=== PATIENT | male | born 1970 | race Caucasian/White ===

== ENCOUNTER 2016-12-26 02:28 | Emergency (ER) | payer OTHER ==
[2016-12-26] MEDS ORDERED: NS 0.9% 1000 ML* 1,000 ML IV ONE (02:42)
[2016-12-26] MEDS ORDERED: Ondansetron INJ* 2 MG/ML VIAL IV ONE (02:42)
[2016-12-26] MEDS ORDERED: Ketorolac INJ* 30 MG/ML 1 ML VIAL IV ONE (02:42)
[2016-12-26 03:14] LABS: Hematocrit 50 % (42-52); Hemoglobin 16.4 g/dl (14.0-18.0); Mean Corpuscular HGB Conc 33 g/dl (31-36); Mean Corpuscular Hemoglobin 29 pg (27-31); Mean Corpuscular Volume 86 fL (80-94); Mean Platelet Volume 8 um3 (7.4-10.4); Red Blood Count 5.75 10^6/ul (4.0-5.4); Red Cell Distribution Width 14 % (10.5-15); White Blood Count 9.1 10^3/ul (3.5-10.8)
[2016-12-26 03:30] LABS: BUN/Creatinine Ratio 11.1 (8-20); EGFR African American 72.5 (>60); EGFR Non-African American 56.4 (>60); Globulin 2.3 g/dL (2-4); Total Bilirubin 0.3 mg/dL (0.2-1.0); Total Protein 6.3 g/dL (6.4-8.9)
[2016-12-26] MEDS ORDERED: oxyCODONE/Acetamin 5/325 MG* TAB PO ONE (04:17)
[2016-12-26 04:18] LABS: Urine Bacteria Absent (Absent); Urine Bilirubin Negative (Negative); Urine Glucose Negative (Negative); Urine Nitrite Negative (Negative); Urine Sperm Present (Absent)
--- NOTE | 2016-12-26 04:20 | ED ---
Neville Cartagena Adam, scribed for Antonio Reynolds MD on 12/26/16 at 0251 . Back Pain - HPI Summary HPI Summary: Pt is a 46 year old male presenting with left flank pain. The pain set on 1 hour ago and it radiates to the pt's left testicle. The pt has had kidney stones 1x (less than 1 year ago) with pain on the same side and he believes that this is kidney stones again. He also c/o nausea associated with the pain. He took Advil to alleviate the pain. PMHx includes DM and gastric bypass. Pt is a smoker. - History of Current Complaint Chief Complaint: EDFlankPain Stated Complaint: FLANK PAIN Time Seen by Provider: 12/26/16 02:40 Hx Obtained From: Patient Onset/Duration: Sudden Onset, Lasting Hours, Still Present Onset/Duration: Atraumatic Timing: Constant Back Pain Location: Is Discrete @ - Left flank, Radiates To - Left testicle Severity Initially: Moderate Severity Currently: Moderate Pain Intensity: 7 Pain Scale Used: 0-10 Numeric Aggravating Symptom(s): Nothing Alleviating Symptom(s): OTC Meds - Advil Associated Signs And Symptoms: Positive: Other - Nausea Related History: Similar Episode Dx As - Previous episode of kidney stones - Allergies/Home Medications Allergies/Adverse Reactions: Allergies Allergy/AdvReac Type Severity Reaction Status Date / Time Aspirin AdvReac See Comment Verified 03/10/16 09:32 PMH/Surg Hx/FS Hx/Imm Hx Endocrine/Hematology History: Reports: Hx Diabetes - Type 2 Denies: Hx Systemic Lupus Erythematosus, Hx Thyroid Disease Cardiovascular History: Denies: Hx Congestive Heart Failure, Hx Hypertension Respiratory History: Denies: Hx Asthma, Hx Chronic Obstructive Pulmonary Disease (COPD) GI History: Reports: Hx Gall Bladder Disease - stones, Other GI Disorders - GASTRIC BYPASS Denies: Hx Ulcer History: Denies: Hx Dialysis, Hx Renal Disease Musculoskeletal History: Denies: Hx Rheumatoid Arthritis, Hx Scoliosis Neurological History: Denies: Hx Headaches, Other Neuro Impairments/Disorders Psychiatric History: Reports: Hx of Violent Episodes Against Others - Cancer History Hx Chemotherapy: No - Surgical History Surgery Procedure, Year, and Place: GASTRIC BYPASS/APPY/UMBILICAL HERNIA X4/ TONSILS/NASAL SEPTUM, Uvula Infectious Disease History: No Infectious Disease History: Denies: Hx Clostridium Difficile, Hx Hepatitis, Hx Human Immunodeficiency Virus (HIV), Hx of Known/Suspected MRSA, Hx Shingles, Hx Tuberculosis, Hx Known/ Suspected VRE, Hx Known/Suspected VRSA, History Other Infectious Disease, Traveled Outside the [place] in Last 30 Days - Family History Known Family History: Positive: Other - Alcohol abuse (brother, paternal grandmother) - Social History Occupation: Disabled Lives: With Family - Mother Alcohol Use: None Hx Substance Use: No Substance Use Type: Reports: None Hx Tobacco Use: Yes Smoking Status (MU): Heavy Every Day Tobacco Smoker Type: Cigarettes Amount Used/How Often: 1 ppd Length of Time of Smoking/Using Tobacco: 35 Have You Smoked in the Last Year: Yes Review of Systems Positive: Nausea Positive: flank pain - Left Positive: Other - Left testicle pain All Other Systems Reviewed And Are Negative: Yes Physical Exam Triage Information Reviewed: Yes Vital Signs On Initial Exam: Initial Vitals Temp Pulse Resp BP Pulse Ox 98.7 F 101 16 187/120 98 12/26/16 02:29 12/26/16 02:29 12/26/16 02:29 12/26/16 02:29 12/26/16 02:29 Vital Signs Reviewed: Yes Appearance: Positive: Well-Appearing, Pain Distress - moderate discomfort Skin: Positive: Warm Eyes: Positive: MARYBEL ENT: Positive: Hearing grossly normal Neck: Positive: Supple Respiratory/Lung Sounds: Positive: Breath Sounds Present Cardiovascular: Positive: RRR Abdomen Description: Positive: Nontender, No Organomegaly, Soft. Negative: CVA Tenderness (R), CVA Tenderness (L), Distended, Guarding Bowel Sounds: Positive: Present Musculoskeletal: Positive: Strength/ROM Intact Neurological: Positive: Alert, Oriented to Person Place, Time Psychiatric: Positive: Affect/Mood Appropriate Diagnostics - Vital Signs Vital Signs Temp Pulse Resp BP Pulse Ox 12/26/16 02:29 98.7 F 101 16 187/120 98 - Laboratory Lab Results: Lab Results 12/26/16 12/26/16 12/26/16 Range/Units 03:00 03:00 03:55 WBC 9.1 (3.5-10.8) 10^3/ul RBC 5.75 H (4.0-5.4) 10^6/ul Hgb 16.4 (14.0-18.0) g/dl Hct 50 (42-52) % MCV 86 (80-94) fL MCH 29 (27-31) pg MCHC 33 (31-36) g/dl RDW 14 (10.5-15) % Plt Count 258 (150-450) 10^3/ul MPV 8 (7.4-10.4) um3 Neut % (Auto) 55.0 (38-83) % Lymph % (Auto) 33.9 (25-47) % [place] % (Auto) 7.3 (1-9) % Eos % (Auto) 2.8 (0-6) % Baso % (Auto) 1.0 (0-2) % Absolute Neuts (auto) 5.0 (1.5-7.7) 10^3/ul Absolute Lymphs (auto) 3.1 (1.0-4.8) 10^3/ul Absolute Monos (auto) 0.7 (0-0.8) 10^3/ul Absolute Eos (auto) 0.3 (0-0.6) 10^3/ul Absolute Basos (auto) 0.1 (0-0.2) 10^3/ul Absolute Nucleated RBC 0.01 10^3/ul Nucleated RBC % 0.1 Sodium 138 (133-145) mmol/L Potassium 4.0 (3.5-5.0) mmol/L Chloride 107 (101-111) mmol/L Carbon Dioxide 24 (22-32) mmol/L Anion Gap 7 (2-11) mmol/L BUN 15 (6-24) mg/dL Creatinine 1.35 H (0.67-1.17) mg/dL Est GFR ( Amer) 72.5 (>60) Est GFR (Non-Af Amer) 56.4 (>60) BUN/Creatinine Ratio 11.1 (8-20) Glucose 161 H (70-100) mg/dL Calcium 9.0 (8.6-10.3) mg/dL Total Bilirubin 0.30 (0.2-1.0) mg/dL AST 15 (13-39) U/L ALT 21 (7-52) U/L Alkaline Phosphatase 86 (34-104) U/L Total Protein 6.3 L (6.4-8.9) g/dL Albumin 4.0 (3.2-5.2) g/dL Globulin 2.3 (2-4) g/dL Albumin/Globulin Ratio 1.7 (1-3) Urine Color Yellow Urine Appearance Cloudy Urine pH 5.0 (5-9) Ur Specific [place] 1.023 (1.010-1.030) Urine Protein 1+(30 mg/dl) H (Negative) Urine Ketones Negative (Negative) Urine Blood 3+ H (Negative) Urine Nitrate Negative (Negative) Urine Bilirubin Negative (Negative) Urine Urobilinogen Negative (Negative) Ur Leukocyte Esterase Negative (Negative) Urine WBC (Auto) Trace(0-5/hpf) (Absent) Urine RBC (Auto) 3+(>10/hpf) H (Absent) Ur Squamous Epith Cells Present H (Absent) Urine Bacteria Absent (Absent) Hyaline Casts Present H (Absent) Urine Sperm Present H (Absent) Urine Glucose Negative (Negative) Result Diagrams: 12/26/16 03:00 12/26/16 03:00 Lab Statement: Any lab studies that have been ordered have been reviewed, and results considered in the medical decision making process. - CT A/P CT Interpretation Completed By: Radiologist - IMPRESSION: OBSTRUCTING CALCULUS IN THE LEFT UVJ. Re-Evaluation - Re-Evaluation First Eval Change: Improved - results d/w pt. pt pain free Back Pain Course/Dx - Diagnoses Provider Diagnoses: Kidney stones Discharge - Discharge Plan Condition: Improved Disposition: HOME Patient Education Materials: Kidney Stones (ED) Referrals: Rigo Cardona MD [Medical Doctor] - Additional Instructions: Follow up with Dr. Cardona (Urology) this week. The documentation as recorded by the Neville werner Adam accurately reflects the service I personally performed and the decisions made by , Antonio Reynolds MD.
[2016-12-26 04:35] VITALS: BP 163/94
--- NOTE | 2016-12-26 08:19 | RAD ---
Indication: Left flank pain. CT of the abdomen and pelvis was performed without oral or IV contrast administration. Coronal and sagittal reconstructed images were obtained. Lung bases demonstrate no pleural fluid, nodules or masses. The heart is normal size without evidence of pericardial effusion. The liver is normal in size. It is diffusely decreased in density consistent with hepatic steatosis. The gallbladder demonstrates calcified gallstone. No pericholecystic fluid or wall thickening is noted. The spleen is normal size. No adrenal masses are noted. The right kidney is unremarkable. There is fullness of the left renal collecting system. There is a low density lesion left kidney likely representing a left renal cyst measuring up to 4.9 cm. Mild left hydroureter is noted. There is a 2 to 3 mm calculus at the left ureterovesicular junction consistent with calculi at the ureterovesicular junction. No retroperitoneal adenopathy is noted. No dilated loops of bowel are noted. CT of pelvis demonstrates no free fluid. The prostate is otherwise unremarkable. No hernias are noted. IMPRESSION: 2 TO 3 MM CALCULI AT THE LEFT URETEROVESICULAR JUNCTION. MILD LEFT HYDRONEPHROSIS IS NOTED. LEFT RENAL CYST IS NOTED. CHOLELITHIASIS. HEPATIC STEATOSIS. PATIENT IS STATUS POST ANTERIOR ABDOMINAL WALL HERNIA REPAIR.
== END 2016-12-26 04:34 | disposition home or self-care (01) ==
LOC: ED 02:28
DX: N20.0 Calculus of kidney (principal); R10.84 Generalized abdominal pain; R11.0 Nausea; F17.210 Nicotine dependence, cigarettes, uncomplicated; N50.812 Left testicular pain
CPT/HCPCS: 36415; 74176; 80053; 81003; 81015; 85025; 96374; 96375; 99282; J1885; J2405

== ENCOUNTER 2017-04-07 15:39 | Inpatient (IN) | payer OTHER ==
[2017-04-07 15:53] LABS: Hematocrit 50 % (42-52); Hemoglobin 16.2 g/dl (14.0-18.0); Mean Corpuscular HGB Conc 33 g/dl (31-36); Mean Corpuscular Hemoglobin 28 pg (27-31); Mean Corpuscular Volume 87 fL (80-94); Mean Platelet Volume 8 um3 (7.4-10.4); Red Blood Count 5.78 10^6/ul (4.0-5.4); Red Cell Distribution Width 14 % (10.5-15); White Blood Count 10.1 10^3/ul (3.5-10.8)
[2017-04-07 16:07] LABS: Albumin 4.1 g/dL (3.2-5.2); BUN/Creatinine Ratio 9.6 (8-20); Calcium 9.6 mg/dL (8.6-10.3); EGFR African American 110.2 (>60); EGFR Non-African American 85.7 (>60); Globulin 2.4 g/dL (2-4); HDL Cholesterol 32.8 mg/dL; Potassium 4.1 mmol/L (3.5-5.0); Total Bilirubin 0.4 mg/dL (0.2-1.0); Total Protein 6.5 g/dL (6.4-8.9)
[2017-04-07 16:08] LABS: Urine Bacteria Absent (Absent); Urine Bilirubin Negative (Negative); Urine Glucose Negative (Negative); Urine Nitrite Negative (Negative)
--- NOTE | 2017-04-07 16:09 | RAD ---
INDICATION: Slurred speech and left-sided weakness. COMPARISON: None. TECHNIQUE: Contiguous axial sections of the brain were obtained from the skull base to the vertex without contrast. FINDINGS: Evaluation is somewhat limited by motion artifact. The ventricles, cisterns and sulci are within normal limits. The colmenares-white matter differentiation is adequately maintained and there is no sulcal effacement. No significant focal abnormality or mass effect is present. There is no evidence for intracranial hemorrhage. No significant focal osseous abnormality is present. There is complete opacification of the visualized portion of the left maxillary sinus. There are mild mucosal thickening of the anterior ethmoid air cells. The remaining paranasal sinuses are aerated. The mastoid air cells are clear. IMPRESSION: Normal CT of the brain. Findings reported to Dr. Squires over the telephone at 1605 hours on April 07, 2017.
--- NOTE | 2017-04-07 16:18 | RAD ---
INDICATION: Right-sided weakness COMPARISON: Chest x-ray dated May 29, 2016 TECHNIQUE: Single AP portable view of the chest was obtained. FINDINGS: Image quality is compromised due to the relative inferiority of a portable chest x-ray. The heart and mediastinum exhibit normal size and contour. There is questionable patchy infiltrate overlying the right lung base. Otherwise the lungs are grossly clear. There is no evidence of a large pleural effusion. Visualized bones are normal for the patient's age. IMPRESSION: Questionable patchy infiltrate at the right lung base which may simply be the consequence of poor x-ray penetration of a portable chest x-ray and/or incompletely inspiratory effort prior to image acquisition.
[2017-04-07] MEDS ORDERED: Aspirin Low Dose CHEW TAB* 81 MG PO ONE (16:20)
[2017-04-07] MEDS ORDERED: NS 0.9% 1000 ML* 1,000 ML IV ONE (16:37)
[2017-04-07] MEDS ORDERED: Acetaminophen TAB* 325 MG PO PRN (16:37)
[2017-04-07] MEDS ORDERED: Dextrose 50% Syringe 50 ML* 25 GM/50 ML SYRINGE IV PUSH PRN (16:42)
[2017-04-07 16:55] LABS: C Reactive Protein 5.79 mg/L (< 5.00)
[2017-04-07] MEDS ORDERED: Levofloxacin 750 MG IVPREMIX(* 750 MG/150 ML BAG IVPB ONE (17:21)
--- NOTE | 2017-04-07 17:28 | ED ---
I, Oh,Kathya, scribed for Dillon Squires MD on 04/07/17 at 1548 . Neurological HPI - HPI Summary HPI Summary: This 46 y/o male presents to ED via ambulance for left sided weakness that is constant since 0800 am yesterday morning and slurred speech since 0800 AM this morning. Positive dizziness that is worse with ambulation. Pt states that he is unable to walk. Pt appears unkempt with dirt/soil noted on bilat feet. PMHx includes DM, gastric bypass, cocaine and EtOH dependence, and HLD. FHx is positive for EtOH abuse. - History of Current Complaint Stated Complaint: SLURRED SPEECH,LEFT SIDE WEAKNESS Hx Obtained From: Patient, EMS Onset/Duration: Sudden Onset Timing: Constant Character: Weak - left sided - Allergy/Home Medications Allergies/Adverse Reactions: Allergies Allergy/AdvReac Type Severity Reaction Status Date / Time Aspirin AdvReac See Comment Verified 04/07/17 16:53 PMH/Surg Hx/FS Hx/Imm Hx Endocrine/Hematology History: Reports: Hx Diabetes - Type 2 Denies: Hx Systemic Lupus Erythematosus, Hx Thyroid Disease Cardiovascular History: Denies: Hx Congestive Heart Failure, Hx Hypertension Respiratory History: Denies: Hx Asthma, Hx Chronic Obstructive Pulmonary Disease (COPD) GI History: Reports: Hx Gall Bladder Disease - stones, Other GI Disorders - GASTRIC BYPASS Denies: Hx Ulcer History: Denies: Hx Dialysis, Hx Renal Disease Musculoskeletal History: Denies: Hx Rheumatoid Arthritis, Hx Scoliosis Neurological History: Denies: Hx Headaches, Other Neuro Impairments/Disorders Psychiatric History: Reports: Hx of Violent Episodes Against Others - Cancer History Hx Chemotherapy: No - Surgical History Surgery Procedure, Year, and Place: GASTRIC BYPASS/APPY/UMBILICAL HERNIA X4/ TONSILS/NASAL SEPTUM, Uv[place] Infectious Disease History: Denies: Hx Clostridium Difficile, Hx Hepatitis, Hx Human Immunodeficiency Virus (HIV), Hx of Known/Suspected MRSA, Hx Shingles, Hx Tuberculosis, Hx Known/ Suspected VRE, Hx Known/Suspected VRSA, History Other Infectious Disease - Family History Known Family History: Positive: Other - Alcohol abuse (brother, paternal grandmother) - Social History Alcohol Use: None Hx Substance Use: Yes - Hx of cocaine dependence Substance Use Type: Reports: Cocaine Hx Tobacco Use: Yes Smoking Status (MU): Heavy Every Day Tobacco Smoker Type: Cigarettes Amount Used/How Often: 1 ppd Length of Time of Smoking/Using Tobacco: 35 Have You Smoked in the Last Year: Yes Review of Systems Negative: Fever Positive: Weakness - left sided weakness, Slurred Speech All Other Systems Reviewed And Are Negative: Yes Physical Exam - Summary Physical Exam Summary: VITAL SIGNS: Reviewed. GENERAL: Patient is an obese male who is lying comfortable in the stretcher. Patient is not in any acute respiratory distress. HEAD AND FACE: No signs of trauma. No ecchymosis, hematomas or skull depressions. No sinus tenderness. EYES: PERRLA, EOMI x 2, No injected conjunctiva, no nystagmus. No photophobia. EARS: Hearing grossly intact. Ear canals and tympanic membranes are within normal limits. MOUTH: Oropharynx within normal limits. NECK: Supple, trachea is midline, no adenopathy, no JVD, no carotid bruit, no c- spine tenderness, neck with full ROM. No meningeal signs, no Kernig's or brudzinskis signs. CHEST: Symmetric, no tenderness at palpation LUNGS: Clear to auscultation bilaterally. No wheezing or crackles. CVS: Regular rate and rhythm, S1 and S2 present, no murmurs or gallops appreciated. ABDOMEN: Soft, non-tender. No signs of distention. No rebound no guarding, and no masses palpated. Bowel sounds are normal. EXTREMITIES: FROM in all major joints, no edema, no cyanosis or clubbing. NEURO: Alert and oriented x 3. Positive left side weakness with facial droop. NIH score 8 SKIN: Dry and warm Triage Information Reviewed: Yes Vital Signs On Initial Exam: Initial Vitals Temp Pulse Resp BP Pulse Ox 97.3 F 83 18 181/107 98 04/07/17 15:40 04/07/17 15:40 04/07/17 15:40 04/07/17 15:40 04/07/17 15:40 Vital Signs Reviewed: Yes Diagnostics - Vital Signs Vital Signs Temp Pulse Resp BP Pulse Ox 04/07/17 16:00 98 04/07/17 15:42 97.3 F 81 20 181/107 98 04/07/17 15:40 97.3 F 83 18 181/107 98 - Laboratory Lab Results: Lab Results 06/18/17 06/18/17 06/18/17 Range/Units 15:45 15:45 15:45 WBC 10.1 (3.5-10.8) 10^3/ul RBC 5.78 H (4.0-5.4) 10^6/ul Hgb 16.2 (14.0-18.0) g/dl Hct 50 (42-52) % MCV 87 (80-94) fL MCH 28 (27-31) pg MCHC 33 (31-36) g/dl RDW 14 (10.5-15) % Plt Count 255 (150-450) 10^3/ul MPV 8 (7.4-10.4) um3 Neut % (Auto) 76.1 (38-83) % Lymph % (Auto) 11.9 L (25-47) % [place] % (Auto) 5.4 (1-9) % Eos % (Auto) 2.2 (0-6) % Baso % (Auto) 4.4 H (0-2) % Absolute Neuts (auto) 7.7 (1.5-7.7) 10^3/ul Absolute Lymphs (auto) 1.2 (1.0-4.8) 10^3/ul Absolute Monos (auto) 0.5 (0-0.8) 10^3/ul Absolute Eos (auto) 0.2 (0-0.6) 10^3/ul Absolute Basos (auto) 0.4 H (0-0.2) 10^3/ul Absolute Nucleated RBC 0 10^3/ul Nucleated RBC % 0 INR (Anticoag Therapy) 0.90 (0.89-1.11) APTT 30.6 (26.0-36.3) seconds Sodium 137 (133-145) mmol/L Potassium 4.1 (3.5-5.0) mmol/L Chloride 107 (101-111) mmol/L Carbon Dioxide 22 (22-32) mmol/L Anion Gap 8 (2-11) mmol/L BUN 9 (6-24) mg/dL Creatinine 0.94 (0.67-1.17) mg/dL Est GFR ( Amer) 110.2 (>60) Est GFR (Non-Af Amer) 85.7 (>60) BUN/Creatinine Ratio 9.6 (8-20) Glucose 148 H (70-100) mg/dL Lactic Acid (0.5-2.0) mmol/L Calcium 9.6 (8.6-10.3) mg/dL Total Bilirubin 0.40 (0.2-1.0) mg/dL AST 17 (13-39) U/L ALT 23 (7-52) U/L Alkaline Phosphatase 84 (34-104) U/L Troponin I 0.00 (<0.04) ng/mL Total Protein 6.5 (6.4-8.9) g/dL Albumin 4.1 (3.2-5.2) g/dL Globulin 2.4 (2-4) g/dL Albumin/Globulin Ratio 1.7 (1-3) Triglycerides 227 mg/dL Cholesterol 198 mg/dL LDL Cholesterol 120 mg/dL HDL Cholesterol 32.8 mg/dL Urine Color Urine Appearance Urine pH (5-9) Ur Specific [place] (1.010-1.030) Urine Protein (Negative) Urine Ketones (Negative) Urine Blood (Negative) Urine Nitrate (Negative) Urine Bilirubin (Negative) Urine Urobilinogen (Negative) Ur Leukocyte Esterase (Negative) Urine WBC (Auto) (Absent) Urine RBC (Auto) (Absent) Urine Bacteria (Absent) Urine Glucose (Negative) Blood Type Antibody Screen 04/07/17 04/07/17 04/07/17 Range/Units 15:45 15:45 16:00 WBC (3.5-10.8) 10^3/ul RBC (4.0-5.4) 10^6/ul Hgb (14.0-18.0) g/dl Hct (42-52) % MCV (80-94) fL MCH (27-31) pg MCHC (31-36) g/dl RDW (10.5-15) % Plt Count (150-450) 10^3/ul MPV (7.4-10.4) um3 Neut % (Auto) (38-83) % Lymph % (Auto) (25-47) % [place] % (Auto) (1-9) % Eos % (Auto) (0-6) % Baso % (Auto) (0-2) % Absolute Neuts (auto) (1.5-7.7) 10^3/ul Absolute Lymphs (auto) (1.0-4.8) 10^3/ul Absolute Monos (auto) (0-0.8) 10^3/ul Absolute Eos (auto) (0-0.6) 10^3/ul Absolute Basos (auto) (0-0.2) 10^3/ul Absolute Nucleated RBC 10^3/ul Nucleated RBC % INR (Anticoag Therapy) (0.89-1.11) APTT (26.0-36.3) seconds Sodium (133-145) mmol/L Potassium (3.5-5.0) mmol/L Chloride (101-111) mmol/L Carbon Dioxide (22-32) mmol/L Anion Gap (2-11) mmol/L BUN (6-24) mg/dL Creatinine (0.67-1.17) mg/dL Est GFR ( Amer) (>60) Est GFR (Non-Af Amer) (>60) BUN/Creatinine Ratio (8-20) Glucose (70-100) mg/dL Lactic Acid 1.8 (0.5-2.0) mmol/L Calcium (8.6-10.3) mg/dL Total Bilirubin (0.2-1.0) mg/dL AST (13-39) U/L ALT (7-52) U/L Alkaline Phosphatase (34-104) U/L Troponin I (<0.04) ng/mL Total Protein (6.4-8.9) g/dL Albumin (3.2-5.2) g/dL Globulin (2-4) g/dL Albumin/Globulin Ratio (1-3) Triglycerides mg/dL Cholesterol mg/dL LDL Cholesterol mg/dL HDL Cholesterol mg/dL Urine Color Yellow Urine Appearance Clear Urine pH 5.0 (5-9) Ur Specific [place] 1.020 (1.010-1.030) Urine Protein 1+(30 mg/dl) H (Negative) Urine Ketones Trace H (Negative) Urine Blood Negative (Negative) Urine Nitrate Negative (Negative) Urine Bilirubin Negative (Negative) Urine Urobilinogen Negative (Negative) Ur Leukocyte Esterase Negative (Negative) Urine WBC (Auto) Absent (Absent) Urine RBC (Auto) Absent (Absent) Urine Bacteria Absent (Absent) Urine Glucose Negative (Negative) Blood Type O Positive Antibody Screen Pending Result Diagrams: 04/07/17 15:45 04/07/17 15:45 Lab Statement: Any lab studies that have been ordered have been reviewed, and results considered in the medical decision making process. - Radiology CXR Xray Interpretation: No Acute Changes - Questionable patchy infiltrate at the right lung base which may simply be the consequence of poor x-ray penetration of a portable chest x-ray and/or incompletely inspiratory effort prior to image acquisition. 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 Facial Paresis-Pt to Smile & Close Eyes or Grimace Symmetry: Minor Paralysis Motor Function - Right Arm: No Drift-Holds 10 Seconds Motor Function - Left Arm: Drifts LT 10 seconds Motor Function - Right Leg: No Drift-Holds 10 Seconds Motor Function - Left Leg: Drifts LT 10 seconds Limb Ataxia-Must be out of Proportion to Weakness Present: Present in One Limb Sensory (Use Pinprick to Test Arms/Legs/Trunk/Face): Pinprick Less on Affected Best Language (Describe Picture, Name Items): No Aphasia Dysarthria (Read Several Words): Normal Extinction and Inattention: No Abnormality Total Score: 8 Course/Dx - Course Assessment/Plan: This 46 y/o male presents to ED via ambulance for left sided weakness that is constant since 0800 am yesterday morning and slurred speech since 0800 AM this morning. Positive dizziness that is worse with ambulation. Pt states that he is unable to walk. Pt appears unkempt with dirt/soil noted on bilat feet. PMHx includes DM, gastric bypass, cocaine and EtOH dependence, and HLD. FHx is positive for EtOH abuse. CT Brain: Normal CT of the brain. . CXR was limited and indicative of questionable patchy infiltrate at the right lung base which may simply be the consequence of poor x-ray penetration of a portable chest x-ray and/or incompletely inspiratory effort prior to image acquisition. Blood work is noted with elevated blood glucose of 148. UA indicates trace amount of protein and ketone in UA. Clinical findings were discussed with Dr. Roque ( Neurology) and recommends admission to the hospitalist. He is not a candidate for tPA. I discussed the case with Dr. Frank who accepted the patient for admission. He is hemodynamically stable and A+O X 3. MRI was ordered will f/u by Hospitalist - Differential Dx Differential Diagnoses Neuro: Positive: Cerebrovascular Accident, Seizure Disorder, Transient Ischemic Attack - Diagnoses Provider Diagnoses: Ischemic cerebrovascular accident (CVA) of frontal lobe - Physician Notifications Discussed Care Of Patient With: Jeane Roque - Paged at 1554 PM Time Discussed With Above Provider: 15:59 Discharge - Discharge Plan Condition: Stable Disposition: ADMITTED TO [facility] Referrals: Dillon Friedman MD [Primary Care Provider] - The documentation as recorded by the Arvin werner Soohyun accurately reflects the service I personally performed and the decisions made by , Dillon Squires MD.
[2017-04-07] MEDS ORDERED: Zosyn per Pharmacy* NOTE FOLLOW UP SCH (18:00)
[2017-04-07] MEDS ORDERED: Iodixanol* (CONTRAST) 320 MG/ML 100 ML SDV IV SCH (18:04)
[2017-04-07] MEDS: Insulin LISPRO* 1 UNITS UNIT SUBCUT SCH (20:43)
[2017-04-07] MEDS: Docusate CAP* 100 MG PO SCH (20:44)
[2017-04-07] MEDS: Heparin VIAL(*) 5000 UNITS/ML VIAL (FIVE THOUSAND) SUBCUT SCH (21:31)
[2017-04-07] MEDS: ZOSYN 3.375 GM Q8H per EXTENDED INFUSION IVPB SCH ×2 (21:36)
--- NOTE | 2017-04-07 22:15 | RAD ---
CPT II: CPT II Codes: 3100F INDICATION: Slurred speech and left-sided weakness COMPARISON: None TECHNIQUE: A CT angiogram of the head and neck was performed with 80 cc of Visipaque 320. Contiguous axial sections were obtained from the thoracic inlet through the [place] of [place]. Images were reconstructed in the sagittal, coronal planes and in a 3-D volume rendered format. The distal cervical internal carotid artery diameter is used as the denominater for stenosis measurement. CTA NECK: The common and internal carotid arteries are patent without hemodynamically significant stenosis. Right: There is mild calcified atherosclerosis of the carotid bulb. In short axis diameter the carotid bulb measures just under 1 cm in diameter. Immediately beyond the bifurcation the internal carotid artery measures 9 mm in short axis diameter. This yields a degree of stenosis of 10%. Left: There is mild calcified atherosclerosis of the carotid bulb. In short axis diameter the carotid bulb measures just under 11 mm in diameter. Immediately beyond the bifurcation the internal carotid artery measures 8 mm in short axis diameter. This yields a degree of stenosis of 27%. The vertebral arteries are patent without gross abnormality. CTA of the brain: The internal carotid, anterior and middle cerebral arteries appear are patent without high grade stenosis or occlusion. The vertebral, basilar and posterior cerebral arteries appear patent without high grade stenosis or occlusion. The [place] of [place] is complete with bilateral posterior communicating arteries identified. No focal luminal filling defect, aneurysm or vascular malformation is seen. There is complete opacification of the left maxillary sinus. IMPRESSION: CT angiography of the head and neck does not reveal any focal abrupt filling defects, aneurysmal dilatation or other acute arterial abnormality. The patient is exhibiting focal neurologic deficits MRI of the brain will likely identify a focus of acute infarction.
--- NOTE | 2017-04-08 00:27 | HP ---
CC: Dr. Roque * HISTORY AND PHYSICAL: DATE OF ADMISSION: 04/07/17 PRIMARY CARE PROVIDER: Dr. Friedman. CHIEF COMPLAINT: Left-sided weakness. HISTORY OF PRESENT ILLNESS: Mr. Patrick is a 46-year-old male with a history of obesity, dyslipidemia, diabetes, obstructive sleep apnea, who presents to the hospital with 24-hour duration of left-sided weakness. The patient stated that he woke up yesterday in the morning and he noted that his left side was not "working too well." The patient stated that his family, who lives with him, who are just his mother and his son, thought that he was "hypochondriac." He stated that he had been able to somehow go through his daily activities for the next 24 hours until he came to the hospital today with concerns that his weakness is not going away. The patient also stated that initially he had problems choking on food, but that improved. He had a bedside swallow evaluation performed by the nurse in the ED and he passed it for thin liquids and regular consistency solids. The patient is going to be admitted with diagnosis of CVA. PAST MEDICAL HISTORY: 1. History of alcohol dependence prior to 1992 when he quit. 2. History of cocaine dependence. The patient has history of multiple hospitalizations for alcohol and cocaine dependence. The patient stated that he last used cocaine "last ." He smokes it. 3. The patient had multiple psychiatric hospitalizations in the past for suicidal ideation. In 2013, he was noted to have intentional carbon monoxide poisoning. 4. The patient also has a history of antisocial behavior. 5. History of paranoid ideation and hallucinations in the past. 6. History of obstructive sleep apnea. 7. History of dyslipidemia. 8. History of gastric bypass in 2011. 9. Status post tonsillectomy. 10. History of nephrolithiasis. 11. The patient is blind in the right eye. He is not really sure the etiology of his blindness. He stated that in the past "he rubbed it too much." 12. Diabetes, type 2. MEDICATIONS: Include: 1. Janumet 50/500 one p.o. daily. 2. Lipitor 20 mg daily ALLERGIES: ASPIRIN. FAMILY HISTORY: Reviewed and noncontributory. SOCIAL HISTORY: The patient smokes 1 pack of cigarettes a day, started when he was 10 years old. He denies any alcohol use ever since 1992. He occasionally smokes cocaine. The patient is on disability due to right eye blindness and diabetes as stated. He is single, lives with his mother and his son. His mother, Anastasiia, is his surrogate. REVIEW OF SYSTEMS: Please see history of present illness. The patient has a significant cough during the evaluation, but he denies shortness of breath or fevers. He stated the cough started occurring yesterday when he choked on food. He denies any headache. His diabetes had been controlled on his medications. All the remaining 14 systems were reviewed with the patient and were otherwise negative. PHYSICAL EXAMINATION GENERAL: The patient is a very pleasant 46-year-old obese male who is in no acute distress. Alert, awake, and oriented x3. VITAL SIGNS: Blood pressure of 160/87, heart rate of 73 and regular, respiratory rate 20, oxygen saturation 96% on room air, and temperature 97.3. HEENT: Head: Atraumatic, normocephalic. Eyes: Pupils equal, reactive to light and accommodation. Oropharynx clear. Mucosa moist. NECK: Supple. No JVD, no bruit bilaterally. RESPIRATORY: Coarse breath sounds in bilateral lower lung zepeda, left more than right. CARDIOVASCULAR: Regular rate and rhythm. No murmur. ABDOMEN: Protuberant, soft, nontender. Bowel sounds present in all 4 quadrants. EXTREMITIES: There is no edema. Pulses +2 bilaterally. No clubbing or cyanosis. NEUROLOGIC: Speech clear. The patient has significant left-sided facial droop. The right upper and lower extremity motor strength is 5/5. The left upper extremity, the muscle strength is 4/5. There is also pronator drift on the left. On the left lower extremity, motor strength is 4+/5. Ambulation was not attempted. Please also note that the patient has significant left-sided facial droop. His speech is clear. PSYCHIATRIC: Oriented x3. Pleasant and cooperative with evaluation with no evidence of anxiety or depression. SKIN: On evaluation of the skin, the patient is poorly kept with dirty feet. There were no significant lesions or rashes noted. DIAGNOSTIC STUDIES/LAB DATA: Show a white blood cell count of 10.1, hemoglobin of 16.2, hematocrit of 50, and platelets of 255. Sodium 137, potassium 4.1, chloride 107, carbon dioxide 22, BUN 9, creatinine 0.94. Liver function tests were unremarkable. C-reactive protein of 5.7. Troponin of 0. The patient's hemoglobin A1c was 7.2. The patient's EKG: Q waves in leads III and aVF which is comparable with prior EKGs. Otherwise, there is normal sinus rhythm with a heart rate of 82 beats per minute. Portable chest x-ray, impression: "Questionable patchy infiltrate in the right lung base, which may be simply the consequence of poor x-ray penetration of portable chest x-ray and incomplete inspiratory effort prior to image acquisition." Brain CT, impression: "Normal CT of the brain." ASSESSMENT AND PLAN: A 46-year-old male with a history of obesity, dyslipidemia , who presents now mildly hypertensive with left-sided weakness for the past 24 hours. His symptoms are consistent with right hemispheric stroke, his left- sided facial droop, and left-sided weakness. He is going to be admitted to the hospital with a diagnosis of ischemic cerebrovascular accident and treated with aspirin. Dr. Roque was already notified by the ED physician about consultation. An MRI of the brain is going to be obtained in the morning. I will also obtain a CT and CT angiogram of the head and neck. The patient is going to be placed on neuro checks every 2 hours and telemetry monitored bed. Physical Therapy and Occupational Therapy will see the patient in consultation. The patient passed bedside dysphagia swallow and he is going to be placed on a regular diet, although I suspect that yesterday when he felt worse, he must have aspirated. In regards to aspiration, the patient has coarse breath sounds at bilateral lung bases, left more than right, although chest x-ray is conclusive of right- sided infiltrates. Nevertheless, I suspect the patient aspirated and he is going to be treated with Zosyn. In regards to dyslipidemia, his LDL is 120 and I am going to increase his atorvastatin from 20 to 40 mg daily. For his diabetes, his Janumet is going to be held. The patient is going to be placed on insulin sliding scale and diabetic diet. In regards to the patient's hypertension, we will continue permissive hypertension at this point. For DVT prophylaxis, the patient is going to be placed on heparin subcutaneously. Code status is full. The patient's surrogate is his mother. TIME SPENT: Approximately 65 minutes was spent on admission of this patient, more than half that time was spent [id number] with the patient during the interview and physical exam. [id number]/[facility] #: [id number] EMMANUEL
[2017-04-08] MEDS: ZOSYN 3.375 GM Q8H per EXTENDED INFUSION IVPB SCH ×6 (05:02→23:15)
[2017-04-08] MEDS: Heparin VIAL(*) 5000 UNITS/ML VIAL (FIVE THOUSAND) SUBCUT SCH ×3 (05:03→23:28)
[2017-04-08] MEDS: Insulin LISPRO* 1 UNITS UNIT SUBCUT SCH ×4 (07:43→21:29)
[2017-04-08] MEDS ORDERED: Atorvastatin* 20 MG TAB PO SCH (09:00)
[2017-04-08] MEDS: Nicotine PATCH 21 MG/24 HR* PATCH TRANSDERM SCH (09:56)
[2017-04-08] MEDS: Atorvastatin* 40 MG TAB PO SCH (09:57)
[2017-04-08] MEDS: Docusate CAP* 100 MG PO SCH ×2 (09:57→23:28)
[2017-04-08] MEDS: Aspirin Low Dose CHEW TAB* 81 MG PO SCH (09:57)
--- NOTE | 2017-04-08 11:45 | PN ---
Subjective Date of Service: 04/08/17 Interval History: chrissie feels well. still weak on left side appears to have problems with managing his left sided weakness, possibly due to mild left hemineglect. poor historian Objective Active Medications: Acetaminophen (Tylenol Tab*) 650 mg PO Q4H PRN PRN Reason: FEVER/PAIN Aspirin (Aspirin Low Dose Tab*) 81 mg PO DAILY [facility] Last Admin: 04/08/17 09:57 Dose: 81 mg Atorvastatin Calcium (Lipitor*) 40 mg PO DAILY [facility] Last Admin: 04/08/17 09:57 Dose: 40 mg Dextrose (D50w Syringe 50 Ml*) 12.5 gm IV PUSH .FOR FS < 60 - SS PRN PRN Reason: FS < 60 Docusate Sodium (Colace Cap*) 100 mg PO BID [facility] Last Admin: 04/08/17 09:57 Dose: 100 mg Heparin Sodium (Porcine) (Heparin Vial(*)) 5,000 units SUBCUT Q8HR [facility] Last Admin: 04/08/17 05:03 Dose: 5,000 units Piperacillin Sod/Tazobactam (Sod 3.375 gm/ Sodium Chloride) 100 mls @ 25 mls/ hr IVPB Q8H [facility] Last Admin: 04/08/17 05:02 Dose: 25 mls/hr Insulin Human Lispro (Humalog*) 0 units SUBCUT ACHS [facility] PRN Reason: Protocol Last Admin: 04/08/17 07:43 Dose: Not Given Iodixanol (Visipaque* 320 (Contrast)) 80 ml IV ONCE [facility] Stop: 04/09/17 18:03 Last Admin: 04/07/17 19:05 Dose: 80 ml Lorazepam (Ativan Inj*) 1 mg IV PUSH ONCE ONE Stop: 04/08/17 12:01 Nicotine (Nicotine Patch 21 Mg/24 Hr*) 1 patch TRANSDERM DAILY [facility] Last Admin: 04/08/17 09:56 Dose: 1 patch Pharmacy Consult (Zosyn Per Pharmacy*) 1 note FOLLOW UP .ZOSYN PER PHARMACY [facility] Pharmacy Profile Note (Nicotine Patch Removal Note*) 1 note PATCH OFF 2100 [facility] Vital Signs 04/07/17 04/07/17 04/07/17 17:00 17:21 17:26 Temperature Pulse Rate 75 82 Respiratory Rate Blood Pressure 140/87 147/87 (mmHg) O2 Sat by Pulse 96 92 Oximetry 04/07/17 04/07/17 04/07/17 17:30 17:37 18:05 Temperature 97.3 F 99.0 F Pulse Rate 73 73 79 Respiratory 17 20 20 Rate Blood Pressure 160/87 160/87 154/95 (mmHg) O2 Sat by Pulse 96 95 Oximetry 04/07/17 04/07/17 04/07/17 18:23 19:45 20:19 Temperature 98.8 F 98.5 F Pulse Rate 85 80 Respiratory 18 20 Rate Blood Pressure 148/103 (mmHg) O2 Sat by Pulse 98 98 97 Oximetry 04/08/17 04/08/17 04/08/17 00:07 04:17 08:00 Temperature 98.3 F 98.2 F Pulse Rate 70 67 Respiratory 20 16 16 Rate Blood Pressure 129/83 139/92 (mmHg) O2 Sat by Pulse 100 99 95 Oximetry 04/08/17 04/08/17 08:03 11:25 Temperature 98.4 F 97.9 F Pulse Rate 53 67 Respiratory 16 24 Rate Blood Pressure 117/97 154/95 (mmHg) O2 Sat by Pulse 95 100 Oximetry Oxygen Devices in Use Now: None Appearance: 46 yo obese, M in nAD, aAOx3 Eyes: No Scleral Icterus, PERRLA Ears/Nose/Mouth/Throat: NL Teeth, Lips, Gums, Mucous Membranes Moist Neck: NL Appearance and Movements; NL JVP, Trachea Midline Respiratory: Symmetrical Chest Expansion and Respiratory Effort, Clear to Auscultation Cardiovascular: NL Sounds; No Murmurs; No JVD, RRR Abdominal: NL Sounds; No Tenderness; No Distention, No Hepatosplenomegaly Lymphatic: No Cervical Adenopathy Extremities: No Edema, No Clubbing, Cyanosis Skin: No Rash or Ulcers, No Nodules or Sclerosis Neurological: Alert and Oriented x 3, - - left facial droop, left pronator drift , left LE at 4+/5 Result Diagrams: 04/07/17 15:45 04/07/17 15:45 Additional Lab and Data: Lab Results 04/07/17 04/07/17 04/07/17 Range/Units 15:45 15:45 15:45 WBC 10.1 (3.5-10.8) 10^3/ul RBC 5.78 H (4.0-5.4) 10^6/ul Hgb 16.2 (14.0-18.0) g/dl Hct 50 (42-52) % MCV 87 (80-94) fL MCH 28 (27-31) pg MCHC 33 (31-36) g/dl RDW 14 (10.5-15) % Plt Count 255 (150-450) 10^3/ul MPV 8 (7.4-10.4) um3 Neut % (Auto) 76.1 (38-83) % Lymph % (Auto) 11.9 L (25-47) % [place] % (Auto) 5.4 (1-9) % Eos % (Auto) 2.2 (0-6) % Baso % (Auto) 4.4 H (0-2) % Absolute Neuts (auto) 7.7 (1.5-7.7) 10^3/ul Absolute Lymphs (auto) 1.2 (1.0-4.8) 10^3/ul Absolute Monos (auto) 0.5 (0-0.8) 10^3/ul Absolute Eos (auto) 0.2 (0-0.6) 10^3/ul Absolute Basos (auto) 0.4 H (0-0.2) 10^3/ul Absolute Nucleated RBC 0 10^3/ul Nucleated RBC % 0 INR (Anticoag Therapy) 0.90 (0.89-1.11) APTT 30.6 (26.0-36.3) seconds Sodium 137 (133-145) mmol/L Potassium 4.1 (3.5-5.0) mmol/L Chloride 107 (101-111) mmol/L Carbon Dioxide 22 (22-32) mmol/L Anion Gap 8 (2-11) mmol/L BUN 9 (6-24) mg/dL Creatinine 0.94 (0.67-1.17) mg/dL Est GFR ( Amer) 110.2 (>60) Est GFR (Non-Af Amer) 85.7 (>60) BUN/Creatinine Ratio 9.6 (8-20) Glucose 148 H (70-100) mg/dL Lactic Acid (0.5-2.0) mmol/L Calcium 9.6 (8.6-10.3) mg/dL Total Bilirubin 0.40 (0.2-1.0) mg/dL AST 17 (13-39) U/L ALT 23 (7-52) U/L Alkaline Phosphatase 84 (34-104) U/L Troponin I 0.00 (<0.04) ng/mL Total Protein 6.5 (6.4-8.9) g/dL Albumin 4.1 (3.2-5.2) g/dL Globulin 2.4 (2-4) g/dL Albumin/Globulin Ratio 1.7 (1-3) Triglycerides 227 mg/dL Cholesterol 198 mg/dL LDL Cholesterol 120 mg/dL HDL Cholesterol 32.8 mg/dL Urine Color Urine Appearance Urine pH (5-9) Ur Specific [place] (1.010-1.030) Urine Protein (Negative) Urine Ketones (Negative) Urine Blood (Negative) Urine Nitrate (Negative) Urine Bilirubin (Negative) Urine Urobilinogen (Negative) Ur Leukocyte Esterase (Negative) Urine WBC (Auto) (Absent) Urine RBC (Auto) (Absent) Urine Bacteria (Absent) Urine Glucose (Negative) Blood Type Antibody Screen 04/07/17 04/07/17 04/07/17 Range/Units 15:45 15:45 16:00 WBC (3.5-10.8) 10^3/ul RBC (4.0-5.4) 10^6/ul Hgb (14.0-18.0) g/dl Hct (42-52) % MCV (80-94) fL MCH (27-31) pg MCHC (31-36) g/dl RDW (10.5-15) % Plt Count (150-450) 10^3/ul MPV (7.4-10.4) um3 Neut % (Auto) (38-83) % Lymph % (Auto) (25-47) % [place] % (Auto) (1-9) % Eos % (Auto) (0-6) % Baso % (Auto) (0-2) % Absolute Neuts (auto) (1.5-7.7) 10^3/ul Absolute Lymphs (auto) (1.0-4.8) 10^3/ul Absolute Monos (auto) (0-0.8) 10^3/ul Absolute Eos (auto) (0-0.6) 10^3/ul Absolute Basos (auto) (0-0.2) 10^3/ul Absolute Nucleated RBC 10^3/ul Nucleated RBC % INR (Anticoag Therapy) (0.89-1.11) APTT (26.0-36.3) seconds Sodium (133-145) mmol/L Potassium (3.5-5.0) mmol/L Chloride (101-111) mmol/L Carbon Dioxide (22-32) mmol/L Anion Gap (2-11) mmol/L BUN (6-24) mg/dL Creatinine (0.67-1.17) mg/dL Est GFR ( Amer) (>60) Est GFR (Non-Af Amer) (>60) BUN/Creatinine Ratio (8-20) Glucose (70-100) mg/dL Lactic Acid 1.8 (0.5-2.0) mmol/L Calcium (8.6-10.3) mg/dL Total Bilirubin (0.2-1.0) mg/dL AST (13-39) U/L ALT (7-52) U/L Alkaline Phosphatase (34-104) U/L Troponin I (<0.04) ng/mL Total Protein (6.4-8.9) g/dL Albumin (3.2-5.2) g/dL Globulin (2-4) g/dL Albumin/Globulin Ratio (1-3) Triglycerides mg/dL Cholesterol mg/dL LDL Cholesterol mg/dL HDL Cholesterol mg/dL Urine Color Yellow Urine Appearance Clear Urine pH 5.0 (5-9) Ur Specific [place] 1.020 (1.010-1.030) Urine Protein 1+(30 mg/dl) H (Negative) Urine Ketones Trace H (Negative) Urine Blood Negative (Negative) Urine Nitrate Negative (Negative) Urine Bilirubin Negative (Negative) Urine Urobilinogen Negative (Negative) Ur Leukocyte Esterase Negative (Negative) Urine WBC (Auto) Absent (Absent) Urine RBC (Auto) Absent (Absent) Urine Bacteria Absent (Absent) Urine Glucose Negative (Negative) Blood Type O Positive Antibody Screen Pending Assess/Plan/Problems-Billing Assessment: 46 yo M with h/o cocaine use, dyslipidemia, DM2, presents with left sided weakness - Patient Problems (1) CVA (cerebral vascular accident) Comment: ischemic. CTA neg Echo with bubble pending MRI attempted, but pt was too anxious, will try again after Ativan tx. Cont ASS, neurochecks Q2H Dr. Roque consulted PT/OT/PMRU consults pending (2) Dyslipidemia Comment: LDL 120,, lipitor's dose increased to 40 mg (3) DM2 (diabetes mellitus, type 2) Comment: cont ADA diet and ISS Janumet on hold (4) Tobacco abuse Comment: counseled x 4 min today. nicotine patch ordered (5) Aspiration into airway Comment: aspiration pneumonia suspected prior to admission Swallow eval pending, but since admission has had no problems swallowing. Zosyn cont. (6) DVT prophylaxis Comment: heparin sc Status and Disposition: inpatient
[2017-04-08] MEDS ORDERED: LORazepam INJ* 2 MG/ML 1 ML VIAL IV PUSH ONE (12:00)
--- NOTE | 2017-04-08 16:39 | CONS ---
NEUROLOGY CONSULTATION: DATE OF CONSULT: 04/08/17 REFERRING PROVIDER: Dr. Karrie Mcmillan. REASON FOR CONSULT: Probable stroke. HISTORY OF PRESENT ILLNESS: Benja Patrick is a 46-year-old man with a history of diabetes and hypercholesterolemia, as well as drug abuse, who presented to the emergency department yesterday with 1 day of left-sided weakness. He reports that on approximately 04/06/17 he awoke with left-sided weakness. He is actually little bit unclear on this today and says that he thinks he did not sleep the entire night, the night before, and that it potentially started while he was awake, but he cannot really recall or pinpoint the time. Sometime within the couple of days prior to the onset of these symptoms, he smoked cocaine as well. He denies any previous history of similar symptoms. He also had some problems with choking on food before admission, but states that has improved. Today, he thinks that his left-sided weakness has improved. He may have some sensory changes as well, but he is not sure about that. He denies any vision difficulties. PAST MEDICAL HISTORY: 1. Past history of alcohol dependence, but he says he does not drink any longer. 2. Cocaine use. 3. History of multiple psychiatric hospitalizations, antisocial behavior, paranoid ideation, and hallucinations in the past. 4. Obstructive sleep apnea. 5. Dyslipidemia. 6. Gastric bypass in 2011. 7. Nephrolithiasis. 8. Vision loss in the right eye. 9. Type 2 diabetes. 10. Hyperlipidemia. HOME MEDICATIONS: 1. Janumet daily. 2. Lipitor 20 mg daily. ALLERGIES: He reports an allergy to ASPIRIN, which, in the computer, is secondary to his gastric bypass surgery. FAMILY HISTORY: Noncontributory at this time. SOCIAL HISTORY: He is a 9-rdao-l-day smoker. He denies alcohol use. As noted , he smokes cocaine occasionally. He feels he does not need help with quitting his cocaine use. REVIEW OF SYSTEMS: He denies any cough currently. He does not have any headache or fever. PHYSICAL EXAM: Vital Signs: Temperature 97.9, blood pressure 154/95, heart rate 67, oxygen saturation 100% on room air. On general examination, he is sitting reclined in the chair at his bedside. He is in no acute distress. He gives scant details on his history. His heart is in a regular rate and rhythm, with no obvious murmurs. He has coarse breath sounds bilaterally. There are no obvious carotid bruits. On cranial nerve testing, the pupils are equal, round, and reactive from 3 to 2 mm bilaterally. Versions are full without nystagmus. Visual zepeda are full to confrontation. He has significant left lower facial droop. Sensation is intact in the V1 through V3 distributions bilaterally. Hearing is intact to finger rub. The palate elevates symmetrically and the tongue is midline. He has delayed shoulder shrug on the left. On motor testing, tone is decreased in the left upper and lower extremities. His left lower extremity is externally rotated. He has full strength in the right arm and leg. 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 In the left lower extremity, he has a footdrop and grade 3 strength of knee flexion, with approximately 3 to 4 in hip flexion. Sensation is intact to temperature in the face and upper extremities, but diminished in the left lower extremity. He also potentially has some ataxia of the left upper extremity, which seems to be out of proportion to his weakness, though it is difficult to tell in the left lower extremity if he has ataxia out of proportion to weakness. He may also have some ataxia of the right lower extremity, but also seem to have some difficulty with understanding the maneuver. His reflexes are 3+ in the left upper and lower extremities, with an upgoing toe on the left and 2+ in the right upper and lower extremities , with a downgoing toe. He was not ambulated. DIAGNOSTIC STUDIES/LAB DATA: Noncontrast head CT was reviewed and was unremarkable. Similarly, a CT angiogram of the head and neck was personally reviewed and showed no obvious areas of significant stenosis or occlusion. His hemoglobin A1c is 7.2%. His cholesterol studies showed triglycerides 227, cholesterol 198, LDL 120, and HDL 32.8. His glucoses have been elevated since arrival. His CBC is overall unremarkable and his CMP is otherwise unremarkable. IMPRESSION: Benja Patrick is a 46-year-old man with a history of poorly controlled diabetes as well as cocaine abuse, who presented subacutely with left -sided weakness, most likely reflective of a right hemispheric stroke. I question whether this could be something in the posterior circulation given the possible ataxia on exam. He is set to undergo MRI of the brain later today. He is being monitored on telemetry and should be pending a transthoracic echocardiogram as well. His statin dose has been increased based on his elevated LDL, to 40 mg. He has been started on an aspirin daily. I discussed with him that his diabetes will need better control as an outpatient and he also needs to stop using cocaine and he indicated that he did not think cocaine has anything to do with this. He also is not open to assistance with discontinuing his drug use, saying that he can do it on his own. Thank you for this consultation. I will follow up after the MRI. [id number]/[facility] #: [id number] EMMANUEL
--- NOTE | 2017-04-08 20:51 | ECHO ---
Patient: NOEMY DE JESUS [facility] Rec#: [id number] : 1970 Date: 04/08/2017 Age: 46y Height: 165.1 cm / 65.0 in Weight: 92.1 kg / 203.0 lbs Sex: M BSA: 2 Room#: 438 Admit Date#: 04/07/2017 Type: Inpatient Referring: Karrie Mcmillan MD Reading: Jossue Moses MD Credit Reporter: Gerda Gilman RN RDCS CC: Dillon Friedman MD Transthoracic Echocardiogram Indication: CVA BP: 154/95 HR: 74 Rhythm: NSR Findings History: DM, HLD, gastric bypass, NATHAN, smoker, obesity, psychiatric disorders, ETOH use in the past, cocaine dependence Technical Comments: The study is technically limited due to patient body habitus. The study is technically limited due to the patient's smoking history. The study was technically limited due to the patient's inability to lay in the left lateral decubitus position. The patient had a difficult time holding still for the exam. Completed at 1650. Left Ventricle: The left ventricular chamber size is normal. Mild to moderate concentric left ventricular hypertrophy is observed. Global left ventricular wall motion and contractility are within normal limits. There is normal left ventricular systolic function. The estimated ejection fraction is 55-60%. Normal left ventricular diastolic filling is observed. Left Atrium: The left atrial chamber size is normal. Right Ventricle: The right ventricular chamber size and systolic function are within normal limits. Right Atrium: The right atrial cavity size is normal. The bubble study is negative. A patent foramen ovale is not demonstrated with color Doppler and agitated contrast. Aortic Valve: The aortic valve is trileaflet. The aortic valve leaflets are mildly thickened. There is no evidence of aortic regurgitation. There is no evidence of aortic stenosis. Mitral Valve: The mitral valve leaflets are mildly thickened. There is trace to mild mitral regurgitation. There is no evidence of mitral stenosis. Tricuspid Valve: The tricuspid valve leaflets are normal. There is trace tricuspid regurgitation. Unable to estimate the right ventricular systolic pressure. Pulmonic Valve: The pulmonic valve appears normal. There is a trace pulmonic regurgitation. There is no pulmonic stenosis. Pericardium: There is no significant pericardial effusion. A pericardial fat pad is visualized. Aorta: There is no dilatation of the ascending aorta. There is no dilatation of the aortic arch. There is no dilation of the aortic root. Pulmonary Artery: The main pulmonary artery is not well visualized. Venous: The inferior vena cava appears normal in size. There is less than 50% respiratory change in the inferior vena cava dimension. Contrast: Normal saline was used as contrast for the bubble study. Images 1 and 2. Conclusions Mild to moderate concentric left ventricular hypertrophy is observed. Global left ventricular wall motion and contractility are within normal limits. The estimated ejection fraction is 55-60%. The right ventricular chamber size and systolic function are within normal limits. A patent foramen ovale is not demonstrated with color Doppler and agitated contrast. There is no evidence of aortic stenosis. There is trace to mild mitral regurgitation. There is trace tricuspid regurgitation. Unable to estimate the right ventricular systolic pressure. There is no significant pericardial effusion. There is no dilatation of the ascending aorta. Measurements Name Value Normal Range RVDdMajor (2D) 2.7 cm (2.2 - 4.4) RAd ISD 4CH 4.6 cm (3.4 - 4.9) RA (A4C)W 3.2 cm (2.9 - 4.6) IVSd (2D) 1.3 cm (0.6 - 1) LVPWd (2D) 1.2 cm (0.6 - 1) LVIDd (2D) 4.4 cm (3.6 - 5.4) LVIDs (2D) 3.1 cm - LV FS (2D) 30 % (25 - 45) Aortic Annulus 2.4 cm (1.4 - 2.6) Ao root diameter (2D) 2.8 cm (2.1 - 3.5) Aortic arch 2.5 cm (1.8 - 3.4) LA dimension (AP) 2D 2.8 cm (2.3 - 3.8) LAd ISD 4CH 4.8 cm (2.9 - 5.3) LA ISD 4CH W 3.8 cm (2.5 - 4.5) Name Value Normal Range MV E-wave Vmax 0.9 m/sec - MV deceleration time 232 msec - MV A-wave Vmax 0.79 m/sec - MV E:A ratio 1.1 ratio - LV septal e' Vmax 0.07 m/sec - LV lateral e' Vmax 0.09 m/sec - LV E:e' septal ratio 14.3 ratio - LV E:e' lateral ratio 10 ratio - Name Value Normal Range AV Vmax 1.3 m/sec - AV VTI 27.5 cm - AV peak gradient 7 mmHg - AV mean gradient 4 mmHg - LVOT Vmax 0.99 m/sec - LVOT VTI 19.9 cm - LVOT peak gradient 4 mmHg - LVOT mean gradient 2 mmHg - LAURO Vmax 0.91 m/sec - Name Value Normal Range IVC diameter 1.6 cm - Name Value Normal Range PV Vmax 0.89 m/sec -
[2017-04-08] MEDS ORDERED: Melatonin (NF) 3 MG TAB PO PRN (22:30)
[2017-04-09] MEDS: Nicotine Patch Removal NOTE PATCH OFF SCH ×2 (00:26→21:07)
[2017-04-09] MEDS: ZOSYN 3.375 GM Q8H per EXTENDED INFUSION IVPB SCH ×2 (06:05)
[2017-04-09] MEDS: Heparin VIAL(*) 5000 UNITS/ML VIAL (FIVE THOUSAND) SUBCUT SCH ×3 (06:05→21:06)
[2017-04-09] MEDS: Insulin LISPRO* 1 UNITS UNIT SUBCUT SCH ×4 (09:27→20:49)
[2017-04-09] MEDS: Atorvastatin* 40 MG TAB PO SCH (09:33)
[2017-04-09] MEDS: Nicotine PATCH 21 MG/24 HR* PATCH TRANSDERM SCH (09:33)
[2017-04-09] MEDS: Docusate CAP* 100 MG PO SCH ×2 (09:34→20:12)
[2017-04-09] MEDS: Aspirin Low Dose CHEW TAB* 81 MG PO SCH (09:34)
--- NOTE | 2017-04-09 13:05 | PN ---
Subjective Date of Service: 04/09/17 Interval History: pt refused MRI despite premedication with 1 mg of IV Ativan., Feels poorly today. Denies pain, wants to go home, but agrees to rehab Objective Active Medications: Acetaminophen (Tylenol Tab*) 650 mg PO Q4H PRN PRN Reason: FEVER/PAIN Aspirin (Aspirin Low Dose Tab*) 81 mg PO DAILY [facility] Last Admin: 04/09/17 09:34 Dose: 81 mg Atorvastatin Calcium (Lipitor*) 40 mg PO DAILY [facility] Last Admin: 04/09/17 09:33 Dose: 40 mg Dextrose (D50w Syringe 50 Ml*) 12.5 gm IV PUSH .FOR FS < 60 - SS PRN PRN Reason: FS < 60 Docusate Sodium (Colace Cap*) 100 mg PO BID [facility] Last Admin: 04/09/17 09:34 Dose: 100 mg Heparin Sodium (Porcine) (Heparin Vial(*)) 5,000 units SUBCUT Q8HR [facility] Last Admin: 04/09/17 06:05 Dose: 5,000 units Piperacillin Sod/Tazobactam (Sod 3.375 gm/ Sodium Chloride) 100 mls @ 25 mls/ hr IVPB Q8H [facility] Last Admin: 04/09/17 06:05 Dose: 25 mls/hr Insulin Human Lispro (Humalog*) 0 units SUBCUT ACHS [facility] PRN Reason: Protocol Last Admin: 04/09/17 12:55 Dose: Not Given Iodixanol (Visipaque* 320 (Contrast)) 80 ml IV ONCE [facility] Stop: 04/09/17 18:03 Last Admin: 04/07/17 19:05 Dose: 80 ml Melatonin (Melatonin (Nf)) 3 mg PO BEDTIME PRN PRN Reason: SLEEP Last Admin: 04/09/17 00:46 Dose: 3 mg Nicotine (Nicotine Patch 21 Mg/24 Hr*) 1 patch TRANSDERM DAILY [facility] Last Admin: 04/09/17 09:33 Dose: 1 patch Pharmacy Consult (Zosyn Per Pharmacy*) 1 note FOLLOW UP .ZOSYN PER PHARMACY [facility] Pharmacy Profile Note (Nicotine Patch Removal Note*) 1 note PATCH OFF 2100 [facility] Last Admin: 04/09/17 00:26 Dose: Not Given Vital Signs 04/08/17 04/08/17 04/08/17 19:00 19:45 20:00 Temperature Pulse Rate Respiratory 20 16 16 Rate Blood Pressure (mmHg) O2 Sat by Pulse Oximetry 04/08/17 04/08/17 04/09/17 20:24 20:31 04:21 Temperature 98.4 F 98.4 F 98.3 F Pulse Rate 85 89 65 Respiratory 17 17 16 Rate Blood Pressure 169/99 169/99 152/74 (mmHg) O2 Sat by Pulse 99 97 97 Oximetry 04/09/17 04/09/17 07:17 08:00 Temperature 98.4 F Pulse Rate 59 Respiratory 18 18 Rate Blood Pressure 129/75 (mmHg) O2 Sat by Pulse 98 97 Oximetry Oxygen Devices in Use Now: None Appearance: 46 yo M in nAD, aAOx3, poor historian Eyes: No Scleral Icterus, PERRLA Ears/Nose/Mouth/Throat: NL Teeth, Lips, Gums, Mucous Membranes Moist Neck: NL Appearance and Movements; NL JVP, Trachea Midline Respiratory: Symmetrical Chest Expansion and Respiratory Effort, Clear to Auscultation Cardiovascular: NL Sounds; No Murmurs; No JVD, RRR Abdominal: NL Sounds; No Tenderness; No Distention Lymphatic: No Cervical Adenopathy Extremities: No Edema, No Clubbing, Cyanosis Skin: No Rash or Ulcers, No Nodules or Sclerosis Neurological: Alert and Oriented x 3, - - left facial droop, left pronator drift , left LE at 4+/5-unchanged Result Diagrams: 04/07/17 15:45 04/07/17 15:45 Additional Lab and Data: Lab Results 04/07/17 04/07/17 04/07/17 Range/Units 15:45 15:45 15:45 WBC 10.1 (3.5-10.8) 10^3/ul RBC 5.78 H (4.0-5.4) 10^6/ul Hgb 16.2 (14.0-18.0) g/dl Hct 50 (42-52) % MCV 87 (80-94) fL MCH 28 (27-31) pg MCHC 33 (31-36) g/dl RDW 14 (10.5-15) % Plt Count 255 (150-450) 10^3/ul MPV 8 (7.4-10.4) um3 Neut % (Auto) 76.1 (38-83) % Lymph % (Auto) 11.9 L (25-47) % Stevens % (Auto) 5.4 (1-9) % Eos % (Auto) 2.2 (0-6) % Baso % (Auto) 4.4 H (0-2) % Absolute Neuts (auto) 7.7 (1.5-7.7) 10^3/ul Absolute Lymphs (auto) 1.2 (1.0-4.8) 10^3/ul Absolute Monos (auto) 0.5 (0-0.8) 10^3/ul Absolute Eos (auto) 0.2 (0-0.6) 10^3/ul Absolute Basos (auto) 0.4 H (0-0.2) 10^3/ul Absolute Nucleated RBC 0 10^3/ul Nucleated RBC % 0 INR (Anticoag Therapy) 0.90 (0.89-1.11) APTT 30.6 (26.0-36.3) seconds Sodium 137 (133-145) mmol/L Potassium 4.1 (3.5-5.0) mmol/L Chloride 107 (101-111) mmol/L Carbon Dioxide 22 (22-32) mmol/L Anion Gap 8 (2-11) mmol/L BUN 9 (6-24) mg/dL Creatinine 0.94 (0.67-1.17) mg/dL Est GFR ( Amer) 110.2 (>60) Est GFR (Non-Af Amer) 85.7 (>60) BUN/Creatinine Ratio 9.6 (8-20) Glucose 148 H (70-100) mg/dL Lactic Acid (0.5-2.0) mmol/L Calcium 9.6 (8.6-10.3) mg/dL Total Bilirubin 0.40 (0.2-1.0) mg/dL AST 17 (13-39) U/L ALT 23 (7-52) U/L Alkaline Phosphatase 84 (34-104) U/L Troponin I 0.00 (<0.04) ng/mL Total Protein 6.5 (6.4-8.9) g/dL Albumin 4.1 (3.2-5.2) g/dL Globulin 2.4 (2-4) g/dL Albumin/Globulin Ratio 1.7 (1-3) Triglycerides 227 mg/dL Cholesterol 198 mg/dL LDL Cholesterol 120 mg/dL HDL Cholesterol 32.8 mg/dL Urine Color Urine Appearance Urine pH (5-9) Ur Specific [place] (1.010-1.030) Urine Protein (Negative) Urine Ketones (Negative) Urine Blood (Negative) Urine Nitrate (Negative) Urine Bilirubin (Negative) Urine Urobilinogen (Negative) Ur Leukocyte Esterase (Negative) Urine WBC (Auto) (Absent) Urine RBC (Auto) (Absent) Urine Bacteria (Absent) Urine Glucose (Negative) Blood Type Antibody Screen 04/07/17 04/07/17 04/07/17 Range/Units 15:45 15:45 16:00 WBC (3.5-10.8) 10^3/ul RBC (4.0-5.4) 10^6/ul Hgb (14.0-18.0) g/dl Hct (42-52) % MCV (80-94) fL MCH (27-31) pg MCHC (31-36) g/dl RDW (10.5-15) % Plt Count (150-450) 10^3/ul MPV (7.4-10.4) um3 Neut % (Auto) (38-83) % Lymph % (Auto) (25-47) % Stevens % (Auto) (1-9) % Eos % (Auto) (0-6) % Baso % (Auto) (0-2) % Absolute Neuts (auto) (1.5-7.7) 10^3/ul Absolute Lymphs (auto) (1.0-4.8) 10^3/ul Absolute Monos (auto) (0-0.8) 10^3/ul Absolute Eos (auto) (0-0.6) 10^3/ul Absolute Basos (auto) (0-0.2) 10^3/ul Absolute Nucleated RBC 10^3/ul Nucleated RBC % INR (Anticoag Therapy) (0.89-1.11) APTT (26.0-36.3) seconds Sodium (133-145) mmol/L Potassium (3.5-5.0) mmol/L Chloride (101-111) mmol/L Carbon Dioxide (22-32) mmol/L Anion Gap (2-11) mmol/L BUN (6-24) mg/dL Creatinine (0.67-1.17) mg/dL Est GFR ( Amer) (>60) Est GFR (Non-Af Amer) (>60) BUN/Creatinine Ratio (8-20) Glucose (70-100) mg/dL Lactic Acid 1.8 (0.5-2.0) mmol/L Calcium (8.6-10.3) mg/dL Total Bilirubin (0.2-1.0) mg/dL AST (13-39) U/L ALT (7-52) U/L Alkaline Phosphatase (34-104) U/L Troponin I (<0.04) ng/mL Total Protein (6.4-8.9) g/dL Albumin (3.2-5.2) g/dL Globulin (2-4) g/dL Albumin/Globulin Ratio (1-3) Triglycerides mg/dL Cholesterol mg/dL LDL Cholesterol mg/dL HDL Cholesterol mg/dL Urine Color Yellow Urine Appearance Clear Urine pH 5.0 (5-9) Ur Specific [place] 1.020 (1.010-1.030) Urine Protein 1+(30 mg/dl) H (Negative) Urine Ketones Trace H (Negative) Urine Blood Negative (Negative) Urine Nitrate Negative (Negative) Urine Bilirubin Negative (Negative) Urine Urobilinogen Negative (Negative) Ur Leukocyte Esterase Negative (Negative) Urine WBC (Auto) Absent (Absent) Urine RBC (Auto) Absent (Absent) Urine Bacteria Absent (Absent) Urine Glucose Negative (Negative) Blood Type O Positive Antibody Screen Pending Assess/Plan/Problems-Billing Assessment: 46 yo M with h/o cocaine use, dyslipidemia, DM2, presents with left sided weakness - Patient Problems (1) CVA (cerebral vascular accident) Comment: ischemic. CTA neg Echo shows no PFO MRI attempted, but pt was too anxious even after Ativan tx. now refuses. D/w Dr. Huber, will get repeat CT brain for comparison with CT at admission Cont ASA, neurochecks Q2H PT/OT/PMRU consults pending (2) Dyslipidemia Comment: LDL 120, lipitor's dose increased to 40 mg (3) DM2 (diabetes mellitus, type 2) Comment: cont ADA diet and ISS Janumet on hold (4) Tobacco abuse Comment: cont nicotine patch (5) Aspiration into airway Comment: aspiration pneumonia suspected prior to admission Swallow eval cleared pt for regular diet. will d/c Zosyn and start Augmentin (6) DVT prophylaxis Comment: heparin sc Status and Disposition: inpatient, medically ready for discharge, needs STR
--- NOTE | 2017-04-09 15:44 | RAD ---
INDICATION: CVA COMPARISON: CT brain April 07, 2017 TECHNIQUE: Noncontrast axial source images were acquired from the skull base to the vertex. FINDINGS: Ventricles/sulci: The ventricles and cisterns are normal in size and configuration for age. Brain parenchyma: There is no focal parenchymal finding, evidence of intracranial mass, or intracranial mass effect. Intracranial hemorrhage:None. Extra-axial spaces: There are no abnormal extra axial fluid collections or evidence of extra-axial mass. Calvarium: There is no calvarial fracture or other calvarial abnormality. Scalp: There is no evidence of scalp or extracalvarial soft tissue abnormality. Paranasal sinuses/mastoid: There is a opacification of the left maxillary antrum. There is mild ethmoid sinus disease. Other: None. IMPRESSION: No acute intracranial findings or interval changes.
[2017-04-09] MEDS: Amoxicillin/Clavulanate TAB* 875 MG PO SCH (20:11)
[2017-04-10] MEDS: Heparin VIAL(*) 5000 UNITS/ML VIAL (FIVE THOUSAND) SUBCUT SCH ×2 (05:28→13:45)
--- NOTE | 2017-04-10 08:37 | PN ---
PROGRESS NOTE: DATE OF FOLLOWUP: 04/09/17 HISTORY OF PRESENT ILLNESS: Mr. Patrick was sleeping, somewhat reluctant to wake up when I entered the room. He indicated that his left side felt a little bit better and wondered if he could go home. He also questioned why this happened to someone so young and if a blood clot was seen on his CT scan. But unfortunately, he was unable to tolerate the MRI scan. MEDICATIONS: Reviewed and include: 1. Augmentin. 2. Aspirin 81 mg. 3. Lipitor 40 mg daily. 4. Sliding scale insulin. 5. Nicotine patch. PHYSICAL EXAM: Vital Signs: Temperature 97.8, blood pressure 129/60, heart rate 62, oxygen saturation 96% on room air. As mentioned, he was sleeping and somewhat reluctant to wake up when I first entered the room. Once he was roused from sleep, he was participatory with the exam. He is in no acute distress. He continues to have a significant left facial droop and some mild dysarthria. He denies any swallowing difficulties. Versions are full without nystagmus or diplopia. [place] are full to confrontation. 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 He has ataxia as well in the left arm and leg and this is not as certain in the right leg today. DIAGNOSTIC STUDIES: I reviewed his CT scan and I think it shows a hypodense area in the right tamika, but this was not felt to be the case by the radiologist. I do have a call in to the radiologist to discuss. His transthoracic echocardiogram showed a normal ejection fraction of 55% to 60 % and the bubble study was negative. IMPRESSION: Benja Patrick is a 46-year-old man with a history of diabetes as well as recent cocaine abuse, who presented subacutely with left-sided weakness and most likely has a posterior circulation stroke. He asked today why this happened and I reviewed his vascular risk factors, which include diabetes as well as his cocaine use and again strongly advised him to discontinue use once he is an outpatient. Today, he seems to be more accepting of this. He should be continued on his antiplatelet agent and his statin. His blood pressure over the last 2 readings has been within goal and he should ideally be less than 130/ 80 as a long-term goal. Smoking cessation was also encouraged. He will need rehab and options are being looked into at this point with respect to that. [id number]/[facility] #: [id number] EMMANUEL
[2017-04-10] MEDS: Insulin LISPRO* 1 UNITS UNIT SUBCUT SCH ×2 (09:04→13:44)
[2017-04-10] MEDS: Amoxicillin/Clavulanate TAB* 875 MG PO SCH (09:14)
[2017-04-10] MEDS: Nicotine PATCH 21 MG/24 HR* PATCH TRANSDERM SCH (09:14)
[2017-04-10] MEDS: Atorvastatin* 40 MG TAB PO SCH (09:14)
[2017-04-10] MEDS: Docusate CAP* 100 MG PO SCH (09:14)
[2017-04-10] MEDS: Aspirin Low Dose CHEW TAB* 81 MG PO SCH (09:14)
[2017-04-10 09:46] VITALS: BP 132/95
--- NOTE | 2017-04-11 09:04 | DS ---
CC: Dr. Roque; Dr. Draper; Dr. Alejo; Dr. Friedman * DISCHARGE SUMMARY: DATE OF ADMISSION: 04/07/17 DATE OF DISCHARGE TO PHYSIOTHERAPY UNIT: 04/10/17 PRIMARY CARE PROVIDER: Dr. Friedman. DISCHARGE DIAGNOSES: 1. 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 2. Aspiration pneumonia. SECONDARY DIAGNOSES: 1. History of alcohol dependence prior to 1992. 2. History of cocaine use. 3. History of multiple psychiatric hospitalizations in the past, and suicide ideations and suicidal attempts. 4. History of antisocial behavior. 5. History of paranoid ideation and hallucinations in the past. 6. Obstructive sleep apnea. 7. Dyslipidemia. 8. History of gastric bypass in 2011. 9. Tonsillectomy. 10. Nephrolithiasis. 11. 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 12. Diabetes type 2. MEDICATIONS AT DISCHARGE: Include: 1. Augmentin 875 mg p.o. b.i.d., with the last dose being on 04/13/17. 2. Aspirin 81 mg daily. 3. Lipitor 40 mg daily. 4. Colace 100 mg b.i.d. p.r.n. 5. Insulin lispro sliding scale. 6. Melatonin 3 mg at bedtime. 7. Nicotine patch 21 mg one patch transdermally daily. 8. Janumet 50/500 one tablet daily. LABORATORY DATA AND STUDIES PERFORMED DURING THE HOSPITAL STAY: The patient's cholesterol profile showed triglycerides of 227, cholesterol of 198, LDL of 120 , and HDL of 32. The patient's hemoglobin A1c was 7.2. Brain CT repeat was obtained on 04/09/17. Impression: "No acute intracranial findings and no interval change." Transthoracic echo cardiogram obtained on 04/08/17 showed a moderate LVH., EF of 55% to 60%. No patent foramen ovale demonstrated by color Doppler and agitated contrast. Head and neck CTA obtained on 04/07/17. Impression: "CT angiography of the head and neck does not reveal any focal abrupt filling defects, aneurysmal dilatation, or other acute arterial abnormality. If the patient is exhibiting focal neurologic deficits, MRI of the brain would likely identify the focus of acute infarction." CONSULTATIONS DURING THE HOSPITAL STAY: Included Dr. Roque from Neurology. HOSPITALIZATION COURSE: Benja Patrick is a 46-year-old male with a history of psychiatric problems in the past as well as cocaine and alcohol dependence, who presented to the hospital on the second day of noted left-sided weakness. The patient stated that he noted that over 24 hours before he presented to the ED, but he "waited for it to go away." On presentation, he had left-sided facial droop and left-sided weakness. He was admitted with a diagnosis of acute CVA. His CT angiogram of the head and neck were unremarkable and his initial CT of the head was unremarkable. The repeat CT of the brain a couple of days later was also unremarkable. Unfortunately, even despite being administered 1 mg of IV Ativan, the patient was not able to tolerate MRI of the brain and refused it. Dr. Roque saw the patient in consultation and recommended also a transthoracic echocardiogram with bubble study, which was performed and was negative for patent foramen ovale. The patient was placed on aspirin, which he was not using before, and due to his LDL of 120, his Lipitor was increased from 20 to 40 mg daily. During his physical therapy evaluation in the hospital, he was noted to have persistent left-sided weakness and he was deemed to be able to for physiotherapy unit to which he is going to be transferred on 04/10/17. PHYSICAL EXAMINATION AT TIME DISCHARGE: Blood pressure 152/95, heart rate of 73 and regular, respiratory rate 16, oxygen saturation 96% on room air, temperature 97.8. General: The patient is a pleasant 46-year-old male who is in no acute distress. The patient is alert and oriented x3. He is a poor historian. HEENT: Head atraumatic, normocephalic. Eyes: Pupils equal and reactive to light and accommodation. Oropharynx clear. Mucosa moist. Neck: Supple. No JVD. No bruits bilaterally. Cardiovascular: Regular rate and rhythm. No murmur. Respiratory: Clear to auscultation bilaterally. Abdomen: Soft, nontender. Bowel sounds are present. Extremities: There is no edema. Pulses are 2+ bilaterally. No clubbing or cyanosis. Neuro Evaluation: The patient has a significant left- sided droop, but no dysarthria noted. The patient has also left-sided pronator drift. His left upper extremity strength is 4/5. His left lower extremity strength is 5+/5. The patient is able to ambulate with one person assist and with a roller walker at discharge. Please note that this is a short summary of the patient's hospital stay. Please refer to further medical records for details. TIME SPENT: Approximately 45 minutes were spent on the patient's discharge. [id number] #: [id number] MTDD
== END 2017-04-10 14:26 | DRG 45 ==
LOC: ED 15:39 → MEDTELE 16:37
PROVIDERS: ADMIT Internal Medicine; ATTEND Internal Medicine
DX: I63.9 Cerebral infarction, unspecified (principal); J69.0 Pneumonitis due to inhalation of food and vomit; G81.94 Hemiplegia, unspecified affecting left nondominant side; F14.20 Cocaine dependence, uncomplicated; G47.33 Obstructive sleep apnea (adult) (pediatric); E78.5 Hyperlipidemia, unspecified; E11.9 Type 2 diabetes mellitus without complications; F10.21 Alcohol dependence, in remission; F17.210 Nicotine dependence, cigarettes, uncomplicated; R27.0 Ataxia, unspecified; H54.41 Blindness, right eye, normal vision left eye; Z79.84 Long term (current) use of oral hypoglycemic drugs; Z88.6 Allergy status to analgesic agent; Z98.84 Bariatric surgery status; Z79.899 Other long term (current) drug therapy
CPT/HCPCS: 36415; 70450; 70496; 70498; 71010; 80053; 80061; 81003; 81015; 82550; 83036; 83605; 84484; 85025; 85610; 85730; 86140; 86850; 86900; 86901; 93005; 93306; 99406; A9270-GY; J1644; J2060; J2543; Q9967

== ENCOUNTER 2017-04-10 13:12 | Inpatient (IN) | payer OTHER ==
[2017-04-10] MEDS ORDERED: Magnesium Hydroxide LIQ* 30 ML UDC PO PRN (16:03)
[2017-04-10] MEDS ORDERED: Bisacodyl SUPP* 10 MG SUPP PR PRN (16:03)
[2017-04-10] MEDS ORDERED: Dextrose 50% Syringe 50 ML* 25 GM/50 ML SYRINGE IV PUSH PRN (16:09)
[2017-04-10] MEDS: Insulin LISPRO* 1 UNITS UNIT SUBCUT SCH ×2 (16:52→20:45)
[2017-04-10] MEDS: Senna TAB PO SCH (20:44)
[2017-04-10] MEDS: Amoxicillin/Clavulanate TAB* 875 MG PO SCH (20:44)
[2017-04-10] MEDS: Docusate CAP* 100 MG PO SCH (20:44)
[2017-04-10] MEDS: CMCS Melatonin (NF) 3 MG TAB PO SCH (20:45)
[2017-04-10] MEDS: Heparin VIAL(*) 5000 UNITS/ML VIAL (FIVE THOUSAND) SUBCUT SCH (21:27)
[2017-04-10] MEDS: Nicotine Patch Removal NOTE FOLLOW UP SCH (21:29)
[2017-04-11] MEDS: Acetaminophen TAB* 325 MG PO PRN (01:48)
--- NOTE | 2017-04-11 03:41 | HP ---
ADMISSION HISTORY AND PHYSICAL: DATE OF ADMISSION: 04/10/17 REASON FOR ADMISSION: Stroke with left-sided weakness. HISTORY OF PRESENT ILLNESS: Benja Patrick is a 46-year-old white male. He has a medical history significant for diabetes as well as alcoholism in the past. The patient also has a history of cocaine abuse. He has had multiple hospitalizations for cocaine dependence. He also has an undisclosed psychiatric history. Apparently, somewhere around April 06 or , he developed left-sided weakness. He waited a few days before coming to get help. He presented to the emergency room on 04/07/17. He had a head CT at that time that did not show any acute findings. He had a consultation with Dr. Roque the following day. He had a CT angio of the head and neck showing no obvious areas of significant stenosis. It was noted that his hemoglobin A1c was 7.2. It was felt most likely he had a right hemispheric stroke. An MRI of his brain was ordered. Unfortunately, the patient could not tolerate going into the MRI machine even with sedation of 1 mg of IV Ativan. A followup CAT scan was done, which did not show any new stroke. He did have a transthoracic echo, which did not reveal a PFO. He also had an ejection fraction of 55% to 60% on echo. Because of his left-sided weakness, the patient is felt to have physical therapy and occupational therapy needs. It was also felt that he aspirated. He did see Speech Therapy who felt that his swallow was okay. He is being treated with antibiotics for his aspiration pneumonia. He is felt to have speech therapy needs as well. He is now being admitted for inpatient rehab, so that he might return to independent living. PAST MEDICAL HISTORY: Significant for the aforementioned alcoholism. He says he stopped drinking a while ago, but it is not clear when the last time he used alcohol is. He was a fairly regular user of cocaine, using cocaine 3 to 4 times a month. He states he would get the cocaine from friends. He had a history of diabetes mellitus, which he took Januvia for. He also seems to have had a history of obstructive sleep apnea, gastric bypass in 2011. CURRENT MEDICATIONS: Include: 1. Low-dose aspirin 81 mg daily. 2. Augmentin for his aspiration pneumonia. 3. He is on Lipitor. 4. Nicotine patch. 5. Heparin for DVT prophylaxis. ALLERGIES: The patient has allergies listed to ASPIRIN. SOCIAL HISTORY: He was a pack-a-day smoker prior to admission. He denies any alcohol use. As mentioned, he was a fairly regular user of cocaine. He states he has social security secondary to his diabetes. His discharge plan is to go home with his mother. REVIEW OF SYSTEMS: The patient reports no current shortness of breath or chest pain. It is noted that his allergy to ASPIRIN has something to do with his previous gastric bypass. PHYSICAL EXAMINATION VITAL SIGNS: The patient's temperature is 97.4. Blood pressure is 131/86, pulse 78, respirations 20. HEENT: He has a slight left facial palsy. NECK: Supple with no lymphadenopathy. LUNGS: Sound clear to auscultation bilaterally. Occasional wheezes are heard. HEART: Sounds are regular. S1 and S2 are audible. ABDOMEN: Soft and nontender. EXTREMITIES: He has normal muscle bulk on the left side. Peripheral pulses were intact. No edema is noted. NEUROLOGIC: He is awake, alert, and his speech is slurred. He has a slight dysarthria. Muscle strength in his left arm is about 2/5; left leg is about 3/ 5. FUNCTIONAL EXAM: The patient transfers with minimal amount of assistance of 2 people. ASSESSMENT: Cerebrovascular accident with left hemiparesis, he also has left neglect. OUR PLAN: Integrate him into a comprehensive and therapeutic rehab program with the following goals: 1. Physical Therapy will see the patient. They are going to work on functional transfer training, ambulation training with a walker. 2. Occupational Therapy will see the patient. They are going to work on his activities of daily living, including toileting and toilet transfers. 3. Speech Therapy will evaluate the patient and work on his cognitive linguistic deficits. 4. Heparin for DVT prophylaxis. 5. Continue Augmentin for aspiration pneumonia treatment. 6. Continue nicotine patch for nicotine addiction. 7. We will continue aspirin and Lipitor for secondary stroke prevention. 8. Diabetes mellitus: We will continue fingersticks with sliding scale Humalog coverage. We will restart his Januvia at discharge. 9. Stroke education. 10. career services coordinator will be closely involved to make sure that any services and equipment that the patient requires are in place prior to discharge. 11. Family training as appropriate. 12. Home with appropriate services. ESTIMATED LENGTH OF STAY: 17 to 21 days. [id number]/[facility] #: [id number] [facility] H[facility]ITALBonnie
[2017-04-11] MEDS: Heparin VIAL(*) 5000 UNITS/ML VIAL (FIVE THOUSAND) SUBCUT SCH ×3 (05:44→21:45)
[2017-04-11] MEDS: Insulin LISPRO* 1 UNITS UNIT SUBCUT SCH ×4 (07:29→20:27)
[2017-04-11] MEDS: Nicotine PATCH 21 MG/24 HR* PATCH TRANSDERM SCH ×2 (09:04→09:06)
[2017-04-11] MEDS: Docusate CAP* 100 MG PO SCH ×2 (09:04→20:00)
[2017-04-11] MEDS: Aspirin EC Low Dose* 81 MG TAB.EC PO SCH (09:04)
[2017-04-11] MEDS: Amoxicillin/Clavulanate TAB* 875 MG PO SCH ×2 (09:04→19:59)
[2017-04-11] MEDS: Atorvastatin* 40 MG TAB PO SCH (16:55)
[2017-04-11] MEDS: Senna TAB PO SCH (20:00)
[2017-04-11] MEDS: Nicotine Patch Removal NOTE FOLLOW UP SCH (20:02)
[2017-04-11] MEDS: CMCS Melatonin (NF) 3 MG TAB PO SCH (21:47)
[2017-04-12] MEDS: Heparin VIAL(*) 5000 UNITS/ML VIAL (FIVE THOUSAND) SUBCUT SCH ×3 (05:41→22:21)
[2017-04-12 07:02] LABS: Hematocrit 49 % (42-52); Mean Corpuscular HGB Conc 33 g/dl (31-36); Mean Corpuscular Hemoglobin 29 pg (27-31); Mean Corpuscular Volume 87 fL (80-94); Mean Platelet Volume 8 um3 (7.4-10.4); Red Blood Count 5.56 10^6/ul (4.0-5.4); Red Cell Distribution Width 14 % (10.5-15)
[2017-04-12 07:15] LABS: BUN/Creatinine Ratio 22.5 (8-20); Calcium 9.1 mg/dL (8.6-10.3); EGFR African American 100.2 (>60); Globulin 2.5 g/dL (2-4); Potassium 4.1 mmol/L (3.5-5.0); Total Bilirubin 0.4 mg/dL (0.2-1.0); Total Protein 6.5 g/dL (6.4-8.9)
[2017-04-12] MEDS: Insulin LISPRO* 1 UNITS UNIT SUBCUT SCH ×4 (08:04→20:44)
[2017-04-12] MEDS: Nicotine PATCH 21 MG/24 HR* PATCH TRANSDERM SCH (08:05)
[2017-04-12] MEDS: Docusate CAP* 100 MG PO SCH ×2 (08:28→21:23)
[2017-04-12] MEDS: Amoxicillin/Clavulanate TAB* 875 MG PO SCH ×2 (08:28→21:24)
[2017-04-12] MEDS: Aspirin EC Low Dose* 81 MG TAB.EC PO SCH (08:28)
--- NOTE | 2017-04-12 13:06 | PMRUTEAM ---
PMRU: Goals Current Status: Nursing: Current Status Skin Deviations [Bilateral Other Foot] Skin Deviation Description [ healed Bilateral Foot] Physical Therapy: Current Status Bed Mobility Assistance Mod Assist Transfer Moblility Assistance Min assist x 2 Transfer/Bed Mobility Rolling Walker Recommended Devices Ambulation Assistance min assist x 2 Ambulation Assistive Devices Rolling Walker Stairs Assistance Max Assist Stairs Recommended Devices Two Rails Number of Stairs 2 Occupational Therapy: Current Status Upper Body Dressing Min Assist Lower Body Dressing Mod Assist Bathing Min Assist Toileting Min Assist Toilet Transfer Min Assist Shower Transfer Min Assist Eating Supervision Instrumental ADL n/a Rec Therapy: Current Status Summary of Assessment and Pt. was open to meeting with telegraphic typewriter operator chief. Pt. was Clinical Impression talkative and outgoing throughout. Took pt. outside for enjoyment and diversion. Offered many different activities for pt. to engage in while on the unit, pt. agreed to having a radio in his room. Pt. is open to continued leisure visits. Treatment Goals Pt. will engage in leisure activities while on the unit. Treatment Plan Provide RT services and encourage involvement. Social Work: Current Status Discharge Plan return home with home care svs and family support Potential for Family Training pt's mother is involved and supportive Anticipated Discharge Home Destination Discharge With home care svs and family support Speech: Current Status Assessment The patient presented with continued receptive language and cognitive-linguistic deficits with impulsivity which significantly impact safety, function and independence for daily living tasks. The patient would benefit from continued skilled HVAC MANAGER services to improve and use of strategies for receptive language and cognitive-linguistic deficits impacting safety, function and independence for daily living tasks. Goals: Physical Therapy: Initial Goals Bed Mobility Assistance Independent Transfer Mobility Assistance Independent Transfer/Bed Mobility Rolling Walker Recommended Devices Ambulation Independent Ambulation Recommended Devices Rolling Walker Ambulation Distance 150 Stair Recommended Devices Two Rails Number of Stairs 5 Physical Therapy: Updated Goals Transfer/Bed Mobility Rolling Walker Recommended Devices Occupational Therapy: Initial Goals Goals to be Completed in (Days 10-14 ) Upper Body Bathing Routine Independent Lower Body Bathing Routine Modified Independent with Upper Body Dressing Routine Independent Lower Body Dressing Routine Modified Independent with Toilet Hygeine and Clothing Independent Management Routine Toilet Transfer Routine Modified Independent with Step-In Shower Transfer Modified Independent with Routine Tub Transfer Routine Modified Independent with Functional Transfers for ADL Modified Independent with Grooming Routine Independent Feeding Routine Independent Light Housekeeping Tasks Supervision/Set Up Speech: Goals Speech Goal 1 Receptive language Goal 1 Comments LTG: The patient will complete functional receptive language tasks at 90% accuracy. STGs: 1. The patient will complete functional 2 step commands at 90% accuracy. Status: The patient completed functional 2 step commands at 40% accuracy, improving to 60% accuracy with moderate cues. 2. The patient will respond to functional yes/no questions at 90% accuracy. Status as of 04/11/17: 60% accuracy Speech Goal 2 Cognitive-linguistic Speech Goal 2 Comments LTG: The patient will complete various functional cognitive linguistic tasks at 90% accuracy. STGs: 1. The patient will complete functional sequencing tasks at 90% accuracy. Status: Assisted OT with taking patient to the bathroom. The patient required consistent cues for sequencing steps to complete tasks and wheelchair , and walker safety. 2. The patient will complete functional recall tasks at 90% accuracy. Status as of 04/11/17: The patient recalled 3/ details from paragraph. 3. The patient will complete functional problem solving tasks at 90% accuracy. Status: The patient identified problem given visual scenes at 60% accuracy and stated appropriate solution to problem at 30% accuracy. Ongoing cognitive linguistic assessment for money and time management Social Work: Goals Discharge Plan return home with home care svs and family support Potential for Family Training pt's mother is involved and supportive Anticipated Discharge Home Destination Discharge With home care svs and family support Care Plan: Care Plan ADL's - Improve/Maintain Start: 04/10/17 19:40 Freq: DAILY Status: Active Target: Activity Type Activity Date Activity User E-Sign Co-Sign Detail Recorded Client Recorded Date Recorded By Document 04/11/17 12:52 [id number] 04/11/17 12:53 [id number] 04/11/17 12:52 PMRU Outcome: ADL's/ADL Transfers Orders/Interventions Occupational Therapy Evaluation & Treatment Device Yes: RW, bedside commode Patient to receive OT 5x/wk for 60-120 Therex min/day Self Care Management Group Therapy Neuromuscular ReEducation UE/LE ADL's with Assist Yes ADL Transfers with Assist Yes Toileting: Transfers,Clothing Management Yes ,Hygeine w/Assist Light Kitchen/Laundry w/Assist Yes Progression Toward Outcome/Goals Progressing Outcome/Goals Met Pt evaluated on PRMU and demo' ed need for OT skilled service . Pt demos poor safety awareness and ADL completion. Communication-Improve/Maintain Start: 04/10/17 19:40 Freq: DAILY Status: Active Target: Activity Type Activity Date Activity User E-Sign Co-Sign Detail Recorded Client Recorded Date Recorded By Document 04/12/17 12:37 [id number] 04/12/17 12:38 [id number] 04/12/17 12:37 PMRU Outcome: Communication/Cognitive Status Outcome/Goals Use Comm Tools/ Devices Makes Needs Known Effectively Other Outcomes/Goals The patient will complete functional cognitive- linguistic tasks at 90% accuracy. Progression Toward Outcomes/Goals Progressing Outcome/Goals Met Comment The patient presented with continued deficits with following 2 step commands, problem solving and safety awareness. DVT Prophylaxis- Improve/Maintain Start: 04/10/17 19:40 Freq: DAILY Status: Active Target: Activity Type Activity Date Activity User E-Sign Co-Sign Detail Recorded Client Recorded Date Recorded By Document 04/12/17 06:36 [id number] 04/12/17 06:36 [id number] 04/12/17 06:36 PMRU Outcome: DVT Prophylaxis Outcome/Goals Remains Free of DVT TEDS Stockings on Every AM, Off at HS Progression Toward Outcome/Goals Progressing Discharge Planning - Improve/Maintain Start: 04/10/17 19:40 Freq: DAILY Status: Active Target: Activity Type Activity Date Activity User E-Sign Co-Sign Detail Recorded Client Recorded Date Recorded By Document 04/12/17 06:36 [id number] 04/12/17 06:36 [id number] 04/12/17 06:36 PMRU Outcome: Discharge Planning Identify Patient Needs yes Update Patient Family No Outcome/Goals Demonstrates Understanding of Discharge Plan Progression Toward Outcome/Goals Progressing Metabolic Status- Improve/Maintain Start: 04/10/17 19:40 Freq: DAILY Status: Active Target: Activity Type Activity Date Activity User E-Sign Co-Sign Detail Recorded Client Recorded Date Recorded By Document 04/12/17 06:36 [id number] [id number] 04/12/17 06:36 [id number] 04/12/17 06:36 PMRU Outcome: Metabolic Status Have Fingersticks Been Ordered Yes Fingerstick Order Frequency AC & HS Outcome/Goals Maintain/ Improve Metabolic Status Demonstrate Knowledge of Prevention/ Treatment of Metabolic Imbalances Progression Toward Outcome/Goals Progressing Mobility- Improve/Maintain Start: 04/10/17 19:40 Freq: DAILY Status: Active Target: Activity Type Activity Date Activity User E-Sign Co-Sign Detail Recorded Client Recorded Date Recorded By Document 04/11/17 19:39 [id number] 04/11/17 19:40 [id number] 04/11/17 19:39 PMRU Outcome: Mobility Physical Therapy Evaluation and Yes Treatment Activity OOB with Assistance Yes WBAT Yes Device Yes Assistance Yes Patient to be seen 5x/wk for 60-120 min/ Therex day for: Mobility Training Gait Training W/C Mobility Balance Outcome/Goals Maintain/ Achieve Baseline Mobility Status Improve Mobility Status Demonstrates Proper Use of Assistive Devices Free from Complications of Immobility Bed Mobility Yes: independent Transfers Yes: independent with Rolling walker Gait x ft Yes: independent with rolling walker 150' Up/Down Stairs Yes: independent up/ down 5 stairs with 1 rail Neurological- Improve/Maintain Start: 04/10/17 19:40 Freq: DAILY Status: Active Target: Activity Type Activity Date Activity User E-Sign Co-Sign Detail Recorded Client Recorded Date Recorded By Document 04/12/17 06:36 [id number] 04/12/17 06:36 [id number] 04/12/17 06:36 PMRU Outcome: Neurological Weakness/Aphasia Weakness Left Side Weakness/Aphasia Comment Left sided neglect and visual cut Outcome/Goals Maintain/ Achieve Baseline Neurological Status Improve Neurological Status Maintain/ Improve Strength/ROM Progression Toward Outcome/Goals Progressing Safety- Improve/Maintain Start: 04/10/17 19:40 Freq: DAILY Status: Active Target: Activity Type Activity Date Activity User E-Sign Co-Sign Detail Recorded Client Recorded Date Recorded By Document 04/12/17 06:36 [id number] [email or web address] 04/12/17 06:36 [id number] 04/12/17 06:36 PMRU Outcome: Safety Outcome/Goals Remain Free of Injury or Harm Equipment Needed Progression Toward Outcome/Goals Progressing Outcome/Goals Met Comment PA in place, frequent checks , out in hallway when in chair Medicine Note: Length of Stay: 4 weeks Anticipated Discharge Destination: Home Tentative Discharge Date: 05/08/17 Discharged to: Home
[2017-04-12] MEDS: Atorvastatin* 40 MG TAB PO SCH (16:54)
[2017-04-12] MEDS: CMCS Melatonin (NF) 3 MG TAB PO SCH (21:23)
[2017-04-12] MEDS: Senna TAB PO SCH (21:23)
[2017-04-12] MEDS: Nicotine Patch Removal NOTE FOLLOW UP SCH (21:25)
[2017-04-13] MEDS: Heparin VIAL(*) 5000 UNITS/ML VIAL (FIVE THOUSAND) SUBCUT SCH ×3 (05:42→21:46)
[2017-04-13] MEDS: Acetaminophen TAB* 325 MG PO PRN ×2 (05:42→18:03)
[2017-04-13] MEDS: Amoxicillin/Clavulanate TAB* 875 MG PO SCH ×2 (07:40→21:39)
[2017-04-13] MEDS: Aspirin EC Low Dose* 81 MG TAB.EC PO SCH (07:41)
[2017-04-13] MEDS: Docusate CAP* 100 MG PO SCH ×2 (07:41→21:39)
[2017-04-13] MEDS: Insulin LISPRO* 1 UNITS UNIT SUBCUT SCH ×4 (07:42→21:45)
[2017-04-13] MEDS: Nicotine PATCH 21 MG/24 HR* PATCH TRANSDERM SCH (07:44)
[2017-04-13] MEDS: Atorvastatin* 40 MG TAB PO SCH (16:47)
[2017-04-13] MEDS: Nicotine Patch Removal NOTE FOLLOW UP SCH (21:36)
[2017-04-13] MEDS: Senna TAB PO SCH (21:39)
[2017-04-13] MEDS: CMCS Melatonin (NF) 3 MG TAB PO SCH (21:39)
[2017-04-14] MEDS: Acetaminophen TAB* 325 MG PO PRN (03:20)
[2017-04-14] MEDS: Heparin VIAL(*) 5000 UNITS/ML VIAL (FIVE THOUSAND) SUBCUT SCH ×3 (06:03→21:59)
[2017-04-14] MEDS: Insulin LISPRO* 1 UNITS UNIT SUBCUT SCH ×4 (07:23→20:28)
[2017-04-14] MEDS: Nicotine PATCH 21 MG/24 HR* PATCH TRANSDERM SCH (07:36)
[2017-04-14] MEDS: Docusate CAP* 100 MG PO SCH ×2 (09:49→22:25)
[2017-04-14] MEDS: Aspirin EC Low Dose* 81 MG TAB.EC PO SCH (09:49)
[2017-04-14] MEDS: Amoxicillin/Clavulanate TAB* 875 MG PO SCH ×2 (09:49→21:57)
[2017-04-14] MEDS: Atorvastatin* 40 MG TAB PO SCH (17:29)
[2017-04-14] MEDS: CMCS Melatonin (NF) 3 MG TAB PO SCH (21:57)
[2017-04-14] MEDS: Nicotine Patch Removal NOTE FOLLOW UP SCH (22:25)
[2017-04-14] MEDS: Senna TAB PO SCH (22:26)
[2017-04-15] MEDS: Heparin VIAL(*) 5000 UNITS/ML VIAL (FIVE THOUSAND) SUBCUT SCH ×3 (06:50→21:26)
[2017-04-15] MEDS: Aspirin EC Low Dose* 81 MG TAB.EC PO SCH (07:32)
[2017-04-15] MEDS: Insulin LISPRO* 1 UNITS UNIT SUBCUT SCH ×4 (07:32→21:26)
[2017-04-15] MEDS: Docusate CAP* 100 MG PO SCH ×2 (07:32→19:49)
[2017-04-15] MEDS: Nicotine PATCH 21 MG/24 HR* PATCH TRANSDERM SCH (07:33)
[2017-04-15] MEDS: metFORMIN* 500 MG TAB PO SCH (16:53)
[2017-04-15] MEDS: Atorvastatin* 40 MG TAB PO SCH (16:53)
[2017-04-15] MEDS: Senna TAB PO SCH (19:49)
[2017-04-15] MEDS: Nicotine Patch Removal NOTE FOLLOW UP SCH (19:50)
[2017-04-15] MEDS: CMCS Melatonin (NF) 3 MG TAB PO SCH (21:25)
[2017-04-16] MEDS: Acetaminophen TAB* 325 MG PO PRN ×2 (00:18→22:01)
[2017-04-16] MEDS: Heparin VIAL(*) 5000 UNITS/ML VIAL (FIVE THOUSAND) SUBCUT SCH ×3 (05:40→21:37)
[2017-04-16] MEDS: metFORMIN* 500 MG TAB PO SCH ×2 (07:44→16:53)
[2017-04-16] MEDS: Aspirin EC Low Dose* 81 MG TAB.EC PO SCH (07:44)
[2017-04-16] MEDS: Docusate CAP* 100 MG PO SCH ×2 (07:44→21:05)
[2017-04-16] MEDS: Insulin LISPRO* 1 UNITS UNIT SUBCUT SCH ×4 (08:10→21:38)
[2017-04-16] MEDS: Nicotine PATCH 21 MG/24 HR* PATCH TRANSDERM SCH (08:11)
--- NOTE | 2017-04-16 12:49 | PMRUTEAM ---
PMRU: Goals Current Status: Nursing: Current Status Skin Deviations [none] Other Skin Deviations [Bilateral Other Foot] Skin Deviation Description [ N/A none] Skin Deviation Description [ healed Bilateral Foot] Bladder Current Status Continent, self care Bowel Current Status Continent, self care Nutrition Current Status adequate, FS monitoring, consisitent carb, constant snacking Medication Current Status supervision Physical Therapy: Current Status Bed Mobility Assistance Supervision Transfer Moblility Assistance Contact Guard Assist Transfer/Bed Mobility Rolling Walker Recommended Devices Transfer Mobility Comment Very impulsive and unsteady. Ambulation Assistance Contact Guard Assist,Min Assist Ambulation Assistive Devices Rolling Walker Number of Feet Patient 150' Ambulated Ambulation Comment Ataxic reciprocal type gait using AFO L le. Stairs Assistance Contact Guard Assist,Min Assist Stairs Recommended Devices Two Rails Number of Stairs 5 Manual Wheelchair Control/ Bilateral UE's Technique Wheelchair Propulsion Ability Standby Assistance,Minimum Assistance Wheelchair Distance (ft) 300' Objective Comments patient attempts wheelie in W/c with a different provider this am-- will recommend patient has close/hands on assistance if in wheelchair. Occupational Therapy: Current Status Upper Body Dressing Contact Guard Assist Lower Body Dressing Contact Guard Assist,Min Assist Bathing Mod Assist Toileting Min Assist Toilet Transfer Contact Guard Assist,Min Assist Shower Transfer Contact Guard Assist,Min Assist Eating Supervision Instrumental ADL n/a Rec Therapy: Current Status Summary of Assessment and RT assessment complete and pt. is engaged in Clinical Impression leisure sessions daily. Pt. benefits from time off the unit and fresh air. Treatment Goals Pt. will continue engagement in leisure activities regularly. Treatment Plan Provide RT services and encourage involvement. Social Work: Current Status Discharge Plan return home with home care svs and family support Potential for Family Training pt's family is involved and supportive Anticipated Discharge Home Destination Discharge With home care svs and family support Speech: Current Status Assessment The patient presented with improvements with two step commands and abtstract yes/no questions, however presented with continued receptive language and cognitive-linguistic deficits with impulsivity which significantly impact safety, function and independence for daily living tasks. The patient would benefit from continued skilled STATISTICAL PROGRAMMER services to improve and use of strategies for receptive language and cognitive-linguistic deficits impacting safety, function and independence for daily living tasks. Goals: Physical Therapy: Initial Goals Bed Mobility Assistance Independent Transfer Mobility Assistance Independent Transfer/Bed Mobility Rolling Walker Recommended Devices Ambulation Independent Ambulation Recommended Devices Rolling Walker Ambulation Distance 150 Stair Recommended Devices Two Rails Number of Stairs 5 Physical Therapy: Updated Goals Bed Mobility Assistance Independent Transfer Mobility Assistance Independent Transfer/Bed Mobility Rolling Walker Recommended Devices Ambulation Assistance Independent Ambulation Assistive Devices Rolling Walker Ambulation Distance (ft) 150 Stairs Assistance Independent Stairs Recommended Devices Two Rails Number of Stairs 5 Occupational Therapy: Initial Goals Goals to be Completed in (Days 28 ) Upper Body Bathing Routine Independent Lower Body Bathing Routine Modified Independent with Upper Body Dressing Routine Independent Lower Body Dressing Routine Modified Independent with Toilet Hygeine and Clothing Independent Management Routine Toilet Transfer Routine Modified Independent with Step-In Shower Transfer Modified Independent with Routine Tub Transfer Routine Modified Independent with Functional Transfers for ADL Modified Independent with Grooming Routine Independent Feeding Routine Independent Light Housekeeping Tasks Supervision/Set Up Nursing: Goals Bladder Goal Continent, self care Bowel Goal Continent, self care Nutrition Goal adequate, monitoring FS and consitnent carb Medication Goal supervision Nutrition: Goals Intervention Goals 1. adequate glycemic control per inpatient parameters; no s/sx hypo-or hyperglycemia 2. adequate po intake to support maintenance of lean body mass w/o add'l wt gain Speech: Goals Speech Goal 1 Receptive language Speech Evaluation Status Goal See below 1 Speech Current Status Goal 1 See below Goal 1 Comments LTG: The patient will complete functional receptive language tasks at 90% accuracy. STGs: 1. The patient will complete functional 2 step commands at 90% accuracy. Status: The patient completed functional 2 step commands at 80% accuracy, improving to 100% accuracy with min cues. 2. The patient will respond to functional yes/no questions at 90% accuracy. Status: The patient responded to functional abstract/complex yes/no questions at 80% accuracy. Speech Goal 2 Cognitive-linguistic Speech Goal 2 Evaluation See below Status Speech Goal 2 Current Status See below Speech Goal 2 Comments LTG: The patient will complete various functional cognitive linguistic tasks at 90% accuracy. STGs: 1. The patient will complete functional sequencing tasks at 90% accuracy. Status as of 04/15/17: The patient sequenced 4 pictured functional steps to complete functional tasks at 66% accuracy, improved to 91% accuracy with min cues. 2. The patient will complete functional recall tasks at 90% accuracy. Status: The patient unable to recall 3 items per 2 minute delay. The patient recalled 2/3 x1, 1/3 x1 and 0/3 x1. 3. The patient will complete functional problem solving tasks at 90% accuracy. Status: The patient stated viable solutions to functional safety problem scenarios at 50% accuracy, improving to 60% accuracy with moderate cues. Ongoing cognitive linguistic assessment for money and time management Speech Goal 3 Motor speech Speech Goal 3 Evaluation See below Status Speech Goal 3 Current Status See below Speech Goal 3 Comments LTG: The patient will express daily wants and needs intelligibly with use of strategies at 98- 100% intelligiblity. STGs: 1. The patient will complete HEP of oral motor exercises independently. Status: The patient completed labial protrusion and retraction exercises with moderate cues and use of mirror for visual feedback. 2. The patient will produce sentences at 98-100% intelligible with use of strategies. Social Work: Goals Discharge Plan return home with home care svs and family support Potential for Family Training pt's family is involved and supportive Anticipated Discharge Home Destination Discharge With home care svs and family support Care Plan: Care Plan ADL's - Improve/Maintain Start: 04/10/17 19:40 Freq: DAILY Status: Active Target: Activity Type Activity Date Activity User E-Sign Co-Sign Detail Recorded Client Recorded Date Recorded By Document 04/13/17 07:56 [id number] 04/13/17 07:57 [id number] 04/13/17 07:56 PMRU Outcome: ADL's/ADL Transfers Orders/Interventions Occupational Therapy Evaluation & Treatment Device Yes: RW, bedside commode Patient to receive OT 5x/wk for 60-120 Therex min/day Self Care Management Group Therapy Neuromuscular ReEducation UE/LE ADL's with Assist Yes ADL Transfers with Assist Yes Toileting: Transfers,Clothing Management Yes ,Hygeine w/Assist Light Kitchen/Laundry w/Assist Yes Progression Toward Outcome/Goals Progressing Outcome/Goals Met Pt tolerating therapy sessions very well. Pt demos with L neglect, impulsivity, lack of awareness, poor safety awareness, and L sided weakness. Continue with AE/AD training, transfer training, and ADL completion training. Communication-Improve/Maintain Start: 04/10/17 19:40 Freq: DAILY Status: Active Target: Activity Type Activity Date Activity User E-Sign Co-Sign Detail Recorded Client Recorded Date Recorded By Document 04/16/17 11:24 [id number] 04/16/17 11:25 [id number] 04/16/17 11:24 PMRU Outcome: Communication/Cognitive Status Outcome/Goals Use Comm Tools/ Devices Makes Needs Known Effectively Other Outcomes/Goals The patient will complete functional cognitive- linguistic tasks at 90% accuracy. Progression Toward Outcomes/Goals Progressing Outcome/Goals Met Comment The patient made progress towards STG of following two step commands and complex yes /no questions . The patient presented with continued impulsivity, and, cognitive- linguist deficits impacting safety, function and independence for daily living tasks. DVT Prophylaxis- Improve/Maintain Start: 04/10/17 19:40 Freq: DAILY Status: Active Target: Activity Type Activity Date Activity User E-Sign Co-Sign Detail Recorded Client Recorded Date Recorded By Document 04/16/17 00:36 [id number] 04/16/17 00:38 [id number] 04/16/17 00:36 PMRU Outcome: DVT Prophylaxis Outcome/Goals Remains Free of DVT TEDS Stockings on Every AM, Off at HS Other Outcome/Goals refusing TEDs Progression Toward Outcome/Goals Not Progressing Discharge Planning - Improve/Maintain Start: 04/10/17 19:40 Freq: DAILY Status: Active Target: Activity Type Activity Date Activity User E-Sign Co-Sign Detail Recorded Client Recorded Date Recorded By Document 04/15/17 14:12 [id number] 04/15/17 14:16 [id number] 04/15/17 14:12 PMRU Outcome: Discharge Planning Identify Patient Needs yes Update Patient Family No Outcome/Goals Demonstrates Understanding of Discharge Plan Progression Toward Outcome/Goals Progressing Metabolic Status- Improve/Maintain Start: 04/10/17 19:40 Freq: DAILY Status: Active Target: Activity Type Activity Date Activity User E-Sign Co-Sign Detail Recorded Client Recorded Date Recorded By Document 04/16/17 00:36 [id number] 04/16/17 00:38 [id number] 04/16/17 00:36 PMRU Outcome: Metabolic Status Have Fingersticks Been Ordered Yes Fingerstick Order Frequency AC & HS Outcome/Goals Maintain/ Improve Metabolic Status Demonstrate Knowledge of Prevention/ Treatment of Metabolic Imbalances Progression Toward Outcome/Goals Progressing Mobility- Improve/Maintain Start: 04/10/17 19:40 Freq: DAILY Status: Active Target: Activity Type Activity Date Activity User E-Sign Co-Sign Detail Recorded Client Recorded Date Recorded By Document 04/15/17 12:10 [id number] 04/15/17 12:10 [id number] 04/15/17 12:10 PMRU Outcome: Mobility Physical Therapy Evaluation and Yes Treatment Activity OOB with Assistance Yes WBAT Yes Device Yes Assistance Yes Patient to be seen 5x/wk for 60-120 min/ Therex day for: Mobility Training Gait Training W/C Mobility Balance Outcome/Goals Maintain/ Achieve Baseline Mobility Status Improve Mobility Status Demonstrates Proper Use of Assistive Devices Free from Complications of Immobility Progression Toward Outcome/Goals Progressing Bed Mobility Yes: independent Transfers Yes: independent with Rolling walker Gait x ft Yes: independent with rolling walker 150' Up/Down Stairs Yes: independent up/ down 5 stairs with 1 rail Neurological- Improve/Maintain Start: 04/10/17 19:40 Freq: DAILY Status: Active Target: Activity Type Activity Date Activity User E-Sign Co-Sign Detail Recorded Client Recorded Date Recorded By Document 04/16/17 00:36 [id number] 04/16/17 00:38 [id number] 04/16/17 00:36 PMRU Outcome: Neurological Weakness/Aphasia Weakness Left Side Weakness/Aphasia Comment Left sided neglect and visual cut Outcome/Goals Maintain/ Achieve Baseline Neurological Status Improve Neurological Status Maintain/ Improve Strength/ROM Progression Toward Outcome/Goals Progressing Outcome/Goals Met Comment up ambulating in [place]man with walker with good activity tolerance Safety- Improve/Maintain Start: 04/10/17 19:40 Freq: DAILY Status: Active Target: Activity Type Activity Date Activity User E-Sign Co-Sign Detail Recorded Client Recorded Date Recorded By Document 04/16/17 00:36 [id number] 04/16/17 00:38 [id number] 04/16/17 00:36 PMRU Outcome: Safety Outcome/Goals Remain Free of Injury or Harm Equipment Needed Progression Toward Outcome/Goals Progressing Outcome/Goals Met Comment tamper proof pa in place; bed alarm in place; staff outside room for safety Medicine Note: Length of Stay: 22 days Anticipated Discharge Destination: Home Tentative Discharge Date: May 08, 2017 Discharged to: Home
[2017-04-16] MEDS: Atorvastatin* 40 MG TAB PO SCH (16:53)
[2017-04-16] MEDS ORDERED: traZODone TAB* 50 MG TAB PO SCH (21:00)
[2017-04-16] MEDS: Senna TAB PO SCH (21:05)
[2017-04-16] MEDS: Nicotine Patch Removal NOTE FOLLOW UP SCH (21:05)
[2017-04-17] MEDS: Heparin VIAL(*) 5000 UNITS/ML VIAL (FIVE THOUSAND) SUBCUT SCH ×3 (05:58→21:24)
[2017-04-17] MEDS: Insulin LISPRO* 1 UNITS UNIT SUBCUT SCH ×4 (07:54→21:25)
[2017-04-17] MEDS: metFORMIN* 500 MG TAB PO SCH ×2 (07:55→17:13)
[2017-04-17] MEDS: Docusate CAP* 100 MG PO SCH ×2 (07:55→21:19)
[2017-04-17] MEDS: Aspirin EC Low Dose* 81 MG TAB.EC PO SCH (07:55)
[2017-04-17] MEDS: Nicotine PATCH 21 MG/24 HR* PATCH TRANSDERM SCH (08:20)
[2017-04-17] MEDS: Atorvastatin* 40 MG TAB PO SCH (17:13)
[2017-04-17] MEDS: Acetaminophen TAB* 325 MG PO PRN (21:17)
[2017-04-17] MEDS: risperiDONE TAB* 1 MG PO SCH (21:17)
[2017-04-17] MEDS: Nicotine Patch Removal NOTE FOLLOW UP SCH (21:19)
[2017-04-17] MEDS: Senna TAB PO SCH (21:19)
--- NOTE | 2017-04-18 01:37 | CONS ---
CONSULTATION REPORT: DATE OF CONSULT: 04/17/17 ATTENDING PHYSICIAN: Pavel Alejo MD CONSULTING PHYSICIAN: Segun Law MD REASON FOR CONSULT: Mood problems in post stroke patient. PSYCHIATRIC HISTORY: Psychiatry is asked to see this 46-year-old, , white male with a history of mood instability and chronic cocaine usage and a history of both psychiatric hospitalization as well as inpatient substance abuse rehabilitation, who is currently hospitalized on the physical medicine and rehabilitation unit following a right-sided stroke, who is presenting with purported symptoms of dysphoria, difficulty focusing, and threats to leave the hospital against medical advice. My understanding is that the patient started developing left-sided weakness and dysarthria around April 05 or and then waited for sometime before coming to the hospital to be medically evaluated. An initial workup did not reveal anything abnormal on his head CT; however, he continued to be symptomatic and was admitted to the [facility] on 04/10/17 following what is suspected to have been a right-sided stroke. His physical symptoms acutely have included left hemiparesis as well as hemineglect. The primary team is concerned because the patient has demonstrated poor insight into the functional declines related to this recent event. He is a known cocaine abuser and apparently at a recent family meeting, he was threatening to sign out against medical advice, although his family refused to take him home. I have spoken with the primary team and they are concerned about his mood and behavior and are looking for for recommendations for psychiatric management. As I meet with the patient, he is lying in bed, talking on the phone, preferentially using his right hand. He immediately demonstrates purposeful movement in his left arm to tell me "See doc? I am doing better." The patient appears to be in good spirits and he invites me into his room and appears to have some knowledge that I was coming in to speak with him. He immediately requests that I put him "back on the medications they had me on at [facility]." When I inquire as to what those medications may have been, he immediately responds "Adderall." Throughout our conversation he reports multiple times that he has no intention to quit smoking cigarettes, although other substances of abuse are apparently negotiable. I do try to assess his level of insight into the role that cocaine has played in his recent cerebrovascular event and he seems to be unaware of the potential connection between his cocaine use and his stroke, but he does tell me that he has no intention of abusing cocaine and he has promised his family that he will no longer do this. I questioned him about neurovegetative symptoms of depression including sleep, concentration, appetite, energy, guilt, interest, and psychomotor functioning and he is mostly minimizing towards these, although he does state that he has difficulty focusing in the morning and some trouble sleeping at night. I then asked him about the risperidone that had been prescribed in 2013 on our unit and he is agreeable to a trial of this stating that it helped him sleep. The patient admits to cocaine as recently as 3 days prior to his onset of neurologic symptoms, although he minimizes other substances of abuse including alcohol, cannabis, and opioids. PAST PSYCHIATRIC HISTORY: The patient was admitted briefly on the Behavioral Science Unit in January of 2014 under the service of Dr. Cedric Hightower. At that time, he had been complaining of suicidal ideations and had actually overdosed on trazodone and cut his left arm. Simultaneously, he endorsed auditory hallucinations and was placed on a trial of risperidone. Due to his ongoing abuse of cocaine, he met criteria for cocaine-induced psychotic disorder and was transferred to the inpatient rehab at [facility]. Apparently there, they started him on psychostimulant, although his history giving cannot be completely relied upon. In the past, he has received treatment on and an off at [facility] for mood instability, although he denies past manic symptoms. As far as I can see, his past diagnoses include substance induced mood disorder, substance induced psychotic disorder, adjustment disorder , and antisocial personality disorder. He has also briefly taken trazodone and Prozac in the past with limited adherence. Further psychiatric admissions occurred more remotely with one in 2003 following a suspected carbon monoxide inhalation, suicide attempt. He also had a drug overdose in 1996 on an unknown substance. The patient acknowledges other suicide attempts, but states that he does not recall the details and apparently he used to self mutilate as a child. SUBSTANCE ABUSE HISTORY: The patient claims to not drink alcohol, although prior records indicate that he has received alcohol detoxification treatment in the past. He indicates that he has tried heroin twice, and records show that he used to be a regular abuser of cannabis. He minimizes this stating that he only used pot infrequently in the . His main drug of choice tends to be cocaine, which he started using between the ages of 11 and 12. His heaviest cocaine use, according to him, was between 1997 and 1998 when he was using daily. Past rehab experiences include [facility] in [place], [place], [facility] in [place], and [facility] here in [facility]. PAST MEDICAL HISTORY: Significant for migraines, diabetes, obstructive sleep apnea, hyperlipidemia. He has had 3 to 5 total concussions in his life. He is currently admitted with a right-sided stroke and aspiration pneumonia. He has chronic low vitamin B12. He has a history of gastric bypass surgery in 2012, laparoscopic exploration of his umbilical area, tonsillectomy and nasal septum repair. CURRENT MEDICATIONS: Include low dose aspirin 81 mg daily, Augmentin for pneumonia, Lipitor, nicotine patch, and heparin for DVT prophylaxis. ALLERGIES: He denies any known drug allergies. FAMILY HISTORY: He states that both of his sons have had substance abuse problems in the past. He has a brother with alcohol dependence and a paternal grandmother similarly with alcohol dependence. SOCIAL HISTORY: The patient was born and raised in [place], raised by both parents. He has one brother. He completed 7th grade, but never graduated from high school. He was in the . Apparently, his ex- left him due to his substance abuse. 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 He has two sons, aged 23 and 24. Currently, he lives with his 23-year- old son and the patient's mother. MENTAL STATUS EXAM: The patient is a middle-aged white male with a moustache and baseball cap, wearing shorts and a T-shirt who was lying sideways on his bed. He is calm, cooperative. He makes good eye contact and speech is fluent, Georgian with slight dysarthria. Mood is euthymic with an expansive affect. Thought process is linear and goal directed. Thought content is significant for his desire to be placed on a psychostimulant. He denies suicidal homicidal or homicidal ideation. She denies auditory or visual hallucinations. Insight and judgment appears somewhat suspect given his recent desire to leave the hospital against medical advice. Cognitively: He is awake and alert with no obvious thinking deficits. DIAGNOSES: Emblem I: Unspecified mood disorder, rule out cocaine induced mood disorder versus bipolar 2, cocaine use disorder. Emblem II: Antisocial personality traits by history. ASSESSMENT: The patient is a 46-year-old white male with a history of mood instability and chronic cocaine abuse who was admitted currently to the rehab unit following a right-sided stroke who presents as hypomanic and with limited insight during his hospitalization thus far. It should be pointed out that right sided strokes are more typically associated with manic psychopathology than depressive. At any rate, he is denying any desire to leave against medical advice and states that it is his intention to stay on the rehab unit and complete his rehabilitation until that time that he is discharged home. He feels encouraged about the future indicating that everyday he is feeling stronger on his left side. He denies SI and is denying any urges to continue to use cocaine, but it is notable that his insight is poor relative to the association between cocaine and his recent stroke. He is agreeable to a trial of risperidone, but is mostly seeking psychostimulants, which could be construed as a manifestation of his drug habit. RECOMMENDATIONS: Recommendations to primary team, Psychiatry recommends low dose risperidone as the patient has tolerated this well and it helps with his sleep. It has known benefits in improving not only depressive, but also hypomanic symptoms and could assist with regulation of his behavior. I am reluctant to diagnose him with any primary mental illness at this time given his ongoing substance abuse problems. I certainly would encourage the primary team to consider referring him to outpatient substance abuse services following his discharge with the understanding that further cocaine use could be potentially fatal. While the patient is hospitalized, Psychiatry will continue to follow for the time being. If the primary team has any further questions, they can contact this observer on the behavioral science unit. [id number]/[facility] #: [id number] EMMANUEL
[2017-04-18] MEDS: Acetaminophen TAB* 325 MG PO PRN ×2 (03:03→12:32)
[2017-04-18] MEDS: Heparin VIAL(*) 5000 UNITS/ML VIAL (FIVE THOUSAND) SUBCUT SCH ×3 (06:39→21:30)
[2017-04-18] MEDS: Insulin LISPRO* 1 UNITS UNIT SUBCUT SCH ×4 (08:01→21:08)
[2017-04-18] MEDS: Aspirin EC Low Dose* 81 MG TAB.EC PO SCH (08:01)
[2017-04-18] MEDS: metFORMIN* 500 MG TAB PO SCH ×2 (08:01→16:58)
[2017-04-18] MEDS: Docusate CAP* 100 MG PO SCH ×2 (08:02→21:09)
[2017-04-18] MEDS: Nicotine PATCH 21 MG/24 HR* PATCH TRANSDERM SCH (08:56)
[2017-04-18] MEDS: Atorvastatin* 40 MG TAB PO SCH (16:59)
[2017-04-18] MEDS: Nicotine Patch Removal NOTE FOLLOW UP SCH (21:08)
[2017-04-18] MEDS: Senna TAB PO SCH (21:09)
[2017-04-18] MEDS: risperiDONE TAB* 1 MG PO SCH (22:05)
[2017-04-19] MEDS: Acetaminophen TAB* 325 MG PO PRN (01:09)
[2017-04-19 05:50] LABS: Hematocrit 48 % (42-52); Hemoglobin 15.7 g/dl (14.0-18.0); Mean Corpuscular HGB Conc 33 g/dl (31-36); Mean Corpuscular Hemoglobin 29 pg (27-31); Mean Corpuscular Volume 89 fL (80-94); Mean Platelet Volume 8 um3 (7.4-10.4); Red Blood Count 5.35 10^6/ul (4.0-5.4); Red Cell Distribution Width 14 % (10.5-15); White Blood Count 8.6 10^3/ul (3.5-10.8)
[2017-04-19 06:07] LABS: Potassium 4.1 mmol/L (3.5-5.0)
[2017-04-19 06:08] LABS: Albumin 4.2 g/dL (3.2-5.2); BUN/Creatinine Ratio 23.8 (8-20); Calcium 9.4 mg/dL (8.6-10.3); EGFR African American 101.4 (>60); EGFR Non-African American 78.8 (>60); Globulin 2.4 g/dL (2-4); Total Bilirubin 0.4 mg/dL (0.2-1.0); Total Protein 6.6 g/dL (6.4-8.9)
[2017-04-19] MEDS: Insulin LISPRO* 1 UNITS UNIT SUBCUT SCH ×4 (07:38→22:15)
[2017-04-19] MEDS: Heparin VIAL(*) 5000 UNITS/ML VIAL (FIVE THOUSAND) SUBCUT SCH ×3 (07:39→22:15)
[2017-04-19] MEDS: Nicotine PATCH 21 MG/24 HR* PATCH TRANSDERM SCH (08:21)
[2017-04-19] MEDS: metFORMIN* 500 MG TAB PO SCH ×2 (09:02→17:48)
[2017-04-19] MEDS: Docusate CAP* 100 MG PO SCH ×2 (09:02→19:41)
[2017-04-19] MEDS: Aspirin EC Low Dose* 81 MG TAB.EC PO SCH (09:02)
--- NOTE | 2017-04-19 11:42 | RAD ---
INDICATION: Productive cough COMPARISON: Chest x-ray April 07, 2017, May 29, 2016 TECHNIQUE: PA and lateral dual-energy views were obtained. FINDINGS: Bones/Soft Tissues: There are no acute bony findings. Cardiomediastinal: The cardiomediastinal silhouette is normal. Lungs: There are no acute infiltrates. There is a small nodular opacity projecting over the right lung base which may be associated with the right rib which appears unchanged Pleura: There are no pleural effusions. Other: None IMPRESSION: NO ACTIVE DISEASE.
--- NOTE | 2017-04-19 14:06 | CONSULT ---
Identification - Patient Identification Reason for Psychiatric Consultation: Incapacitating Symptoms -: Patient is a 46 year old, M admitted on 04/10/17. - MHU Identification Employment Status: Disabled Hx Psychiatric Hospitalization: Yes History - Objective HPI: Benja is seen for psychiatric follow up two days after being initiated on 1mg of nightly risperidone therapy due to symptoms of mood instability and behavioral disinhibition. Staff notes indicate that at times he can be cooperative and charming, but has had several other episodes in which he acts out, showing deficits in frustration tolerance and reasonable treatment expectations. Today he is found in the hallway, propelling himself forward independently in his wheelchair. Mr. Patrick begins crying when he sees me, stating "I'm going to the [facility]...right now." He is upset that a therapist, who was apparently conferring with an college administrator, was 5 minutes late to their rehab session. Although the therapist apologized and offered to go 5 minutes over schedule, the patient believes this is evidence that he is being treated unfairly. He repeats several times "I'm not suicidal" despite not being asked this. He does report tolerating risperidone well, stating that it's helping him fall asleep, however, he's having some difficulty staying asleep. Mr. Patrick informs me that he is through using drugs. "I wanna get better. I wanna walk again. I don't need that stuff." He is cooperative with this clinician and seems to appreciate the interaction. Lab Results: Laboratory Tests 04/10/17 04/10/17 04/11/17 16:48 20:09 07:17 WBC RBC Hgb Hct MCV MCH MCHC RDW Plt Count MPV Neut % (Auto) Lymph % (Auto) Benton % (Auto) Eos % (Auto) Baso % (Auto) Absolute Neuts (auto) Absolute Lymphs (auto) Absolute Monos (auto) Absolute Eos (auto) Absolute Basos (auto) Absolute Nucleated RBC Nucleated RBC % Sodium Potassium Chloride Carbon Dioxide Anion Gap BUN Creatinine Est GFR ( Amer) Est GFR (Non-Af Amer) BUN/Creatinine Ratio Glucose POC Glucose (mg/dL) 108 H 134 H 139 H Calcium Total Bilirubin AST ALT Alkaline Phosphatase Total Protein Albumin Globulin Albumin/Globulin Ratio 0604/11/17 04/11/17 11:09 16:40 20:25 WBC RBC Hgb Hct MCV MCH MCHC RDW Plt Count MPV Neut % (Auto) Lymph % (Auto) Benton % (Auto) Eos % (Auto) Baso % (Auto) Absolute Neuts (auto) Absolute Lymphs (auto) Absolute Monos (auto) Absolute Eos (auto) Absolute Basos (auto) Absolute Nucleated RBC Nucleated RBC % Sodium Potassium Chloride Carbon Dioxide Anion Gap BUN Creatinine Est GFR ( Amer) Est GFR (Non-Af Amer) BUN/Creatinine Ratio Glucose POC Glucose (mg/dL) 132 H 205 H 119 H Calcium Total Bilirubin AST ALT Alkaline Phosphatase Total Protein Albumin Globulin Albumin/Globulin Ratio 04/12/17 04/12/17 04/12/17 06:40 06:40 07:13 WBC 9.0 RBC 5.56 H Hgb 16.0 Hct 49 MCV 87 MCH 29 MCHC 33 RDW 14 Plt Count 255 MPV 8 Neut % (Auto) 53.9 Lymph % (Auto) 33.6 Benton % (Auto) 9.6 H Eos % (Auto) 2.4 Baso % (Auto) 0.5 Absolute Neuts (auto) 4.8 Absolute Lymphs (auto) 3.0 Absolute Monos (auto) 0.9 H Absolute Eos (auto) 0.2 Absolute Basos (auto) 0 Absolute Nucleated RBC 0.01 Nucleated RBC % 0.1 Sodium 136 Potassium 4.1 Chloride 106 Carbon Dioxide 22 Anion Gap 8 BUN 23 Creatinine 1.02 Est GFR ( Amer) 100.2 Est GFR (Non-Af Amer) 78.0 BUN/Creatinine Ratio 22.5 H Glucose 111 H POC Glucose (mg/dL) 122 H Calcium 9.1 Total Bilirubin 0.40 AST 25 ALT 40 Alkaline Phosphatase 81 Total Protein 6.5 Albumin 4.0 Globulin 2.5 Albumin/Globulin Ratio 1.6 04/12/17 04/12/17 04/12/17 12:13 16:33 20:26 WBC RBC Hgb Hct MCV MCH MCHC RDW Plt Count MPV Neut % (Auto) Lymph % (Auto) Benton % (Auto) Eos % (Auto) Baso % (Auto) Absolute Neuts (auto) Absolute Lymphs (auto) Absolute Monos (auto) Absolute Eos (auto) Absolute Basos (auto) Absolute Nucleated RBC Nucleated RBC % Sodium Potassium Chloride Carbon Dioxide Anion Gap BUN Creatinine Est GFR ( Amer) Est GFR (Non-Af Amer) BUN/Creatinine Ratio Glucose POC Glucose (mg/dL) 144 H 89 164 H Calcium Total Bilirubin AST ALT Alkaline Phosphatase Total Protein Albumin Globulin Albumin/Globulin Ratio 04/13/17 04/13/17 04/13/17 07:13 11:49 16:30 WBC RBC Hgb Hct MCV MCH MCHC RDW Plt Count MPV Neut % (Auto) Lymph % (Auto) Benton % (Auto) Eos % (Auto) Baso % (Auto) Absolute Neuts (auto) Absolute Lymphs (auto) Absolute Monos (auto) Absolute Eos (auto) Absolute Basos (auto) Absolute Nucleated RBC Nucleated RBC % Sodium Potassium Chloride Carbon Dioxide Anion Gap BUN Creatinine Est GFR ( Amer) Est GFR (Non-Af Amer) BUN/Creatinine Ratio Glucose POC Glucose (mg/dL) 142 H 144 H 178 H Calcium Total Bilirubin AST ALT Alkaline Phosphatase Total Protein Albumin Globulin Albumin/Globulin Ratio 04/13/17 04/13/17 04/13/17 20:03 20:05 20:17 WBC RBC Hgb Hct MCV MCH MCHC RDW Plt Count MPV Neut % (Auto) Lymph % (Auto) Benton % (Auto) Eos % (Auto) Baso % (Auto) Absolute Neuts (auto) Absolute Lymphs (auto) Absolute Monos (auto) Absolute Eos (auto) Absolute Basos (auto) Absolute Nucleated RBC Nucleated RBC % Sodium Potassium Chloride Carbon Dioxide Anion Gap BUN Creatinine Est GFR ( Amer) Est GFR (Non-Af Amer) BUN/Creatinine Ratio Glucose POC Glucose (mg/dL) 74 61 L 133 H Calcium Total Bilirubin AST ALT Alkaline Phosphatase Total Protein Albumin Globulin Albumin/Globulin Ratio 04/14/17 04/14/17 04/14/17 07:22 11:30 17:20 WBC RBC Hgb Hct MCV MCH MCHC RDW Plt Count MPV Neut % (Auto) Lymph % (Auto) Benton % (Auto) Eos % (Auto) Baso % (Auto) Absolute Neuts (auto) Absolute Lymphs (auto) Absolute Monos (auto) Absolute Eos (auto) Absolute Basos (auto) Absolute Nucleated RBC Nucleated RBC % Sodium Potassium Chloride Carbon Dioxide Anion Gap BUN Creatinine Est GFR ( Amer) Est GFR (Non-Af Amer) BUN/Creatinine Ratio Glucose POC Glucose (mg/dL) 129 H 128 H 132 H Calcium Total Bilirubin AST ALT Alkaline Phosphatase Total Protein Albumin Globulin Albumin/Globulin Ratio 04/14/17 04/14/17 04/15/17 20:23 20:25 07:25 WBC RBC Hgb Hct MCV MCH MCHC RDW Plt Count MPV Neut % (Auto) Lymph % (Auto) Benton % (Auto) Eos % (Auto) Baso % (Auto) Absolute Neuts (auto) Absolute Lymphs (auto) Absolute Monos (auto) Absolute Eos (auto) Absolute Basos (auto) Absolute Nucleated RBC Nucleated RBC % Sodium Potassium Chloride Carbon Dioxide Anion Gap BUN Creatinine Est GFR ( Amer) Est GFR (Non-Af Amer) BUN/Creatinine Ratio Glucose POC Glucose (mg/dL) 65 L 99 133 H Calcium Total Bilirubin AST ALT Alkaline Phosphatase Total Protein Albumin Globulin Albumin/Globulin Ratio 04/15/17 04/15/17 04/15/17 11:32 16:23 20:19 WBC RBC Hgb Hct MCV MCH MCHC RDW Plt Count MPV Neut % (Auto) Lymph % (Auto) Benton % (Auto) Eos % (Auto) Baso % (Auto) Absolute Neuts (auto) Absolute Lymphs (auto) Absolute Monos (auto) Absolute Eos (auto) Absolute Basos (auto) Absolute Nucleated RBC Nucleated RBC % Sodium Potassium Chloride Carbon Dioxide Anion Gap BUN Creatinine Est GFR ( Amer) Est GFR (Non-Af Amer) BUN/Creatinine Ratio Glucose POC Glucose (mg/dL) 148 H 221 H 219 H Calcium Total Bilirubin AST ALT Alkaline Phosphatase Total Protein Albumin Globulin Albumin/Globulin Ratio 04/16/17 04/16/17 04/16/17 07:19 11:57 16:25 WBC RBC Hgb Hct MCV MCH MCHC RDW Plt Count MPV Neut % (Auto) Lymph % (Auto) Benton % (Auto) Eos % (Auto) Baso % (Auto) Absolute Neuts (auto) Absolute Lymphs (auto) Absolute Monos (auto) Absolute Eos (auto) Absolute Basos (auto) Absolute Nucleated RBC Nucleated RBC % Sodium Potassium Chloride Carbon Dioxide Anion Gap BUN Creatinine Est GFR ( Amer) Est GFR (Non-Af Amer) BUN/Creatinine Ratio Glucose POC Glucose (mg/dL) 159 H 131 H 103 Calcium Total Bilirubin AST ALT Alkaline Phosphatase Total Protein Albumin Globulin Albumin/Globulin Ratio 04/16/17 04/17/17 04/17/17 20:13 07:38 11:53 WBC RBC Hgb Hct MCV MCH MCHC RDW Plt Count MPV Neut % (Auto) Lymph % (Auto) Benton % (Auto) Eos % (Auto) Baso % (Auto) Absolute Neuts (auto) Absolute Lymphs (auto) Absolute Monos (auto) Absolute Eos (auto) Absolute Basos (auto) Absolute Nucleated RBC Nucleated RBC % Sodium Potassium Chloride Carbon Dioxide Anion Gap BUN Creatinine Est GFR ( Amer) Est GFR (Non-Af Amer) BUN/Creatinine Ratio Glucose POC Glucose (mg/dL) 172 H 134 H 178 H Calcium Total Bilirubin AST ALT Alkaline Phosphatase Total Protein Albumin Globulin Albumin/Globulin Ratio 04/17/17 04/17/17 04/18/17 16:38 20:26 07:16 WBC RBC Hgb Hct MCV MCH MCHC RDW Plt Count MPV Neut % (Auto) Lymph % (Auto) Benton % (Auto) Eos % (Auto) Baso % (Auto) Absolute Neuts (auto) Absolute Lymphs (auto) Absolute Monos (auto) Absolute Eos (auto) Absolute Basos (auto) Absolute Nucleated RBC Nucleated RBC % Sodium Potassium Chloride Carbon Dioxide Anion Gap BUN Creatinine Est GFR ( Amer) Est GFR (Non-Af Amer) BUN/Creatinine Ratio Glucose POC Glucose (mg/dL) 102 162 H 182 H Calcium Total Bilirubin AST ALT Alkaline Phosphatase Total Protein Albumin Globulin Albumin/Globulin Ratio 04/18/17 04/18/17 04/18/17 12:02 16:34 20:29 WBC RBC Hgb Hct MCV MCH MCHC RDW Plt Count MPV Neut % (Auto) Lymph % (Auto) Benton % (Auto) Eos % (Auto) Baso % (Auto) Absolute Neuts (auto) Absolute Lymphs (auto) Absolute Monos (auto) Absolute Eos (auto) Absolute Basos (auto) Absolute Nucleated RBC Nucleated RBC % Sodium Potassium Chloride Carbon Dioxide Anion Gap BUN Creatinine Est GFR ( Amer) Est GFR (Non-Af Amer) BUN/Creatinine Ratio Glucose POC Glucose (mg/dL) 124 H 178 H 140 H Calcium Total Bilirubin AST ALT Alkaline Phosphatase Total Protein Albumin Globulin Albumin/Globulin Ratio 04/19/17 04/19/17 04/19/17 05:35 05:35 11:51 WBC 8.6 RBC 5.35 Hgb 15.7 Hct 48 MCV 89 MCH 29 MCHC 33 RDW 14 Plt Count 239 MPV 8 Neut % (Auto) 52.9 Lymph % (Auto) 35.4 Benton % (Auto) 7.8 Eos % (Auto) 3.4 Baso % (Auto) 0.5 Absolute Neuts (auto) 4.6 Absolute Lymphs (auto) 3.1 Absolute Monos (auto) 0.7 Absolute Eos (auto) 0.3 Absolute Basos (auto) 0 Absolute Nucleated RBC 0.01 Nucleated RBC % 0.1 Sodium 135 Potassium 4.1 Chloride 107 Carbon Dioxide 23 Anion Gap 5 BUN 24 Creatinine 1.01 Est GFR ( Amer) 101.4 Est GFR (Non-Af Amer) 78.8 BUN/Creatinine Ratio 23.8 H Glucose 176 H POC Glucose (mg/dL) 140 H Calcium 9.4 Total Bilirubin 0.40 AST 18 ALT 31 Alkaline Phosphatase 77 Total Protein 6.6 Albumin 4.2 Globulin 2.4 Albumin/Globulin Ratio 1.8 Exam Appearance: Obese Hygiene: Normal Grooming: Fairly Well Kept Psychomotor Activities: Abnormal-Decreased Exhibits Abnormal Movement: No Attitude and Relatedness: Needy Eye Contact: Good - Speech Quality: Unpressured Latencies: Normal Quantity: Appropriate Patient's Decription of Mood: "Angry" Observed Affect: Labile Affect Consistent with: Dysphoria Patient's Thought Process: Circumstantial Thought Content: No Passive Wish, No Suicidal Planning, No Homicidal Ideation, No Paranoid Ideation Experiencing Hallucinations: No, Sensorium is Clear Type of Hallucinations: Visual: No, Auditory: No, Command: No Level of Consciousness: Alert Orientation: Yes Intact, Yes Orientated to Time, Yes Orientated to Place, Yes Orientated to Person Impulse Control: Poor Insight and Judgement: Impaired Impression - Impression Clinical Impression: 46 y.o. , white, disabled male with a history of chronic cocaine dependence and several past psychiatric and substance abuse inpatient hospitalizations, now admitted to the [facility] following an ischemic right-sided stroke and associated left-sided paralysis and neglect, who is being followed by psychiatry due to mood instability and behavioral dysregulation. Inpatient DSM-IV Dx: Unspecified Mood DO Merits Inpatient Hospitalization: No Problem List - MHU Problems Type of Problem: Mood Status of Problem: Active Plan - Treatment Plan Treatment Plan: The patient continues to be symptomatic with mood lability and behavioral dysregulation. He is tolerating risperidone well but is not sleeping well and continues to act out intermittently. Will increase risperidone to 2mg PO qhs and continue to monitor. This observer will follow up with the patient on April 24. The covering psychiatrist on-call for the extended Holiday weekend will be Dr. Carlos Brannon. Continued Medication Management: Start Medication Medications: Current Medications Acetaminophen (Tylenol Tab*) 650 mg PO Q6H PRN PRN Reason: FEVER/PAIN Last Admin: 04/19/17 01:09 Dose: 650 mg Aspirin (Aspirin Ec Low Dose*) 81 mg PO DAILY [facility] Last Admin: 04/19/17 09:02 Dose: 81 mg Atorvastatin Calcium (Lipitor*) 40 mg PO 1700 [facility] Last Admin: 04/18/17 16:59 Dose: 40 mg Bisacodyl (Dulcolax Supp*) 10 mg PA DAILY PRN PRN Reason: CONSTIPATION Dextrose (D50w Syringe 50 Ml*) 12.5 gm IV PUSH .FOR FS < 60 - SS PRN PRN Reason: FS < 60 Docusate Sodium (Colace Cap*) 100 mg PO BID [facility] Last Admin: 04/19/17 09:02 Dose: 100 mg Heparin Sodium (Porcine) (Heparin Vial(*)) 5,000 units SUBCUT Q8HR [facility] Last Admin: 04/19/17 07:39 Dose: 5,000 units Insulin Human Lispro (Humalog*) 0 - 10 units SUBCUT ACHS [facility] PRN Reason: Protocol Last Admin: 04/19/17 12:53 Dose: 1 units Magnesium Hydroxide (Milk Of Magnesia Liq*) 30 ml PO Q6H PRN PRN Reason: CONSTIPATION Metformin HCl (Glucophage*) 500 mg PO 0800,1700 [facility] Last Admin: 04/19/17 09:02 Dose: 500 mg Nicotine (Nicotine Patch 21 Mg/24 Hr*) 1 patch TRANSDERM DAILY@0800 [facility] Last Admin: 04/19/17 08:21 Dose: Not Given Pharmacy Profile Note (Nicotine Patch Removal Note*) 1 note FOLLOW UP 2100 [facility] Last Admin: 04/18/17 21:08 Dose: Not Given Risperidone (Risperdal*) 2 mg PO BEDTIME [facility] Senna (Senokot Tab*) 2 tab PO BEDTIME [facility] Last Admin: 04/18/17 21:09 Dose: Not Given
[2017-04-19] MEDS: Atorvastatin* 40 MG TAB PO SCH (17:48)
[2017-04-19] MEDS: Nicotine Patch Removal NOTE FOLLOW UP SCH (19:41)
[2017-04-19] MEDS: Senna TAB PO SCH (19:41)
[2017-04-19] MEDS ORDERED: risperiDONE TAB* 1 MG PO SCH (21:00)
[2017-04-20] MEDS: Heparin VIAL(*) 5000 UNITS/ML VIAL (FIVE THOUSAND) SUBCUT SCH (05:31)
[2017-04-20 05:32] VITALS: BP 146/94
[2017-04-20] MEDS: Acetaminophen TAB* 325 MG PO PRN (06:17)
[2017-04-20] MEDS: Aspirin EC Low Dose* 81 MG TAB.EC PO SCH (07:40)
[2017-04-20] MEDS: metFORMIN* 500 MG TAB PO SCH (07:40)
[2017-04-20] MEDS: Docusate CAP* 100 MG PO SCH (07:40)
[2017-04-20] MEDS: Insulin LISPRO* 1 UNITS UNIT SUBCUT SCH ×2 (07:41→12:30)
[2017-04-20] MEDS: Nicotine PATCH 21 MG/24 HR* PATCH TRANSDERM SCH (07:42)
[2017-04-20] MEDS ORDERED: Ergocalciferol CAP* 50000 UNIT PO SCH (12:00)
--- NOTE | 2017-04-20 12:34 | CONSULT ---
Identification - Patient Identification Reason for Psychiatric Consultation: Other - Capacity to make sound medical decisions including leaving AMA -: Patient is a 46 year old, M admitted on 04/10/17. - MHU Identification Employment Status: Disabled Hx Psychiatric Hospitalization: No Prior Psychiatric Diagnosis: Cocaine-induced mood disorder; Antisocial traits Arrived to Hospital Via: [facility] patient History - Objective HPI: Please refer to Dr. Law psychiatric consultation (04/17/17). Benja wants to leave AMA, he states he "knows his rights. he is neither psychotic, suicidal nor homicidal, he enjoys his life and he just does not like it in the hospital," he understands the increase risks of leaving, specifically :falls, relapse on substances, another CVA and possible . He reports that he will have the support of his mother at home. The mother has reportedly expressed preference for him remain admitted but understands it is his decision and she is willing to help care for him at home. Past Medical History: S/p CVA with Left hemiparesis (Please refer to previous H& P). Lab Results: Exam Appearance: Obese Hygiene: Normal Grooming: Fairly Well Kept Psychomotor Activities: Abnormal-Decreased Exhibits Abnormal Movement: Yes Attitude and Relatedness: Irritable Eye Contact: Good - Speech Quality: Unpressured Latencies: Normal Quantity: Appropriate Patient's Decription of Mood: "Okay" Observed Affect: Non-labile Affect Consistent with: Dysphoria Patient's Thought Process: Coherent, Goal Directed, Circumstantial Thought Content: No Passive Wish, No Suicidal Planning, No Homicidal Ideation, No Paranoid Ideation Experiencing Hallucinations: No, Sensorium is Clear Type of Hallucinations: Visual: No, Auditory: No, Command: No Level of Consciousness: Alert Orientation: Yes Intact, Yes Orientated to Time, Yes Orientated to Place, Yes Orientated to Person Impulse Control: Poor Insight and Judgement: Fair Impression - Impression Clinical Impression: 46 year old male with history of cocaine use disorder, seen in [facility], where he is in rehabilitation after CVA with left hemiparesis, for capacity determination. He wants to leave against medical advice. On interview, he is alert, oriented x 3, he denies manic, psychotic or any other bothersome psychiatric complaints. He denies suicidal or homicidal ideation. He denies access to firearms or other lethal means. He affirms that feels safe and happy to be alive and not in any emotional pain. He understands the risks of leaving AMA. This patient is capable of making informed medical decisions. Psychiatric involuntary retention/commitment is unwarranted. Inpatient DSM-IV Dx: Cocaine use disorder; Cocaine-induced mod disorder; antisocial personality traits. Merits Inpatient Hospitalization: No Plan - Treatment Plan Treatment Plan: Continue trial of Risperdone Social work to arrange outpatient psychiatric and substance abuse treatment. Case discussed with Dr. Negrita Draper Clinical time spent on this consultation: 45 min. including 20 min face to face with the patient. Continued Medication Management: Continue Outpt Medication Medications: Current Medications Acetaminophen (Tylenol Tab*) 650 mg PO Q6H PRN PRN Reason: FEVER/PAIN Last Admin: 04/20/17 06:17 Dose: 650 mg Aspirin (Aspirin Ec Low Dose*) 81 mg PO DAILY [facility] Last Admin: 04/20/17 07:40 Dose: 81 mg Atorvastatin Calcium (Lipitor*) 40 mg PO 1700 [facility] Last Admin: 04/19/17 17:48 Dose: 40 mg Bisacodyl (Dulcolax Supp*) 10 mg MT DAILY PRN PRN Reason: CONSTIPATION Dextrose (D50w Syringe 50 Ml*) 12.5 gm IV PUSH .FOR FS < 60 - SS PRN PRN Reason: FS < 60 Docusate Sodium (Colace Cap*) 100 mg PO BID [facility] Last Admin: 04/20/17 07:40 Dose: 100 mg Ergocalciferol (Drisdol Cap*) 50,000 unit PO Q7D [facility] PRN Reason: Protocol Heparin Sodium (Porcine) (Heparin Vial(*)) 5,000 units SUBCUT Q8HR [facility] Last Admin: 04/20/17 05:31 Dose: 5,000 units Insulin Human Lispro (Humalog*) 0 - 10 units SUBCUT ACHS [facility] PRN Reason: Protocol Last Admin: 04/20/17 12:30 Dose: Not Given Magnesium Hydroxide (Milk Of Magnesia Liq*) 30 ml PO Q6H PRN PRN Reason: CONSTIPATION Metformin HCl (Glucophage*) 500 mg PO 0800,1700 [facility] Nicotine (Nicotine Patch 21 Mg/24 Hr*) 1 patch TRANSDERM DAILY@0800 [facility] Last Admin: 04/20/17 07:42 Dose: Not Given Pharmacy Profile Note (Nicotine Patch Removal Note*) 1 note FOLLOW UP 2100 [facility] Last Admin: 04/19/17 19:41 Dose: Not Given Risperidone (Risperdal*) 2 mg PO BEDTIME [facility] Last Admin: 04/19/17 22:15 Dose: Not Given Senna (Senokot Tab*) 2 tab PO BEDTIME [facility] Last Admin: 04/19/17 19:41 Dose: Not Given Sitagliptin Phosphate (Januvia (Nf)) 50 mg PO 0900,1700 [facility] PRN Reason: Protocol - Discharge Plan Discharge Plan: Drug/Alcohol Rehab Outpatient Program: TBD
[2017-04-20] MEDS ORDERED: CMC:SitaGLIPtin (NF) 25 MG TAB PO SCH (17:00)
[2017-04-20] MEDS ORDERED: metFORMIN* 500 MG TAB PO SCH (17:00)
--- NOTE | 2017-04-21 12:25 | DS ---
CC: Dr. Friedman REHABILITATION DISCHARGE SUMMARY: DATE OF ADMISSION: 04/10/17 DATE OF DISCHARGE: 04/20/17, against medical advice. PRIMARY CARE PROVIDER: Dr. Friedman. REASON FOR ADMISSION: Stroke with left-sided hemiplegia. HISTORY OF PRESENT ILLNESS: For full details of his acute hospitalization leading up to his admission, please see the note dictated by Dr. Alejo. HOSPITAL COURSE: During his time on the [facility], he was noted to be impulsive. Given his history of past psychiatric stays and substance abuse, Psychiatry was consulted and saw him on a total of 3 occasions. He was put on risperidone at night to help him sleep and that dose was increased when it was not quite so effective. On multiple occasions, he had requested to leave against medical advice and ultimately was deescalated. Dr. Alejo spoke to his family at one point as well. Unfortunately on the evening of 04/19/17, he once again demanded to leave against medical advice. I came in to discuss this with him with his mother also listening and acknowledging on the phone, including the alternatives such as waiting until Saturday, when we could try to arrange transfer to another rehabilitation facility or home care services as well as equipment that he may need. He was unwilling to wait until that time. In addition I warned him and his mother of the risks including recurrent stroke, fall, permanent injury and . It was not clear what his competence level was and Psychiatry was asked to evaluate him again. He was seen by the Mental Health nurse quality who communicated with Dr. Brannon as well as I communicated with Dr. Brannon. He agreed to a mental health hold overnight until Dr. Brannon could come see him the following day. Dr. Brannon evaluated him personally on and agreed that he was competent and had mental capacity to make the decision to leave if he so chose. Once again after discussing with him alternatives and risks including permanent disability and , he signed out against medical advice. Myself and staff reiterated to him multiple times to continue to take a baby aspirin daily for stroke prophylaxis. He should follow up with Dr. Friedman to consider staying on a statin such as Lipitor, which he was taking 40 mg daily here. He needs to adjust his diet to consistent carbohydrate diet for diabetes management and take his medications as they are prescribed by Dr. Idalia. In addition, he is to stop smoking and not drink or use illicit substances. At the time of his leaving against medical advice, he was ambulating with Physical Therapy with contact guard assistance using a rolling walker up to 400 feet and transferring with contact guard assistance. With Occupational Therapy, he required contact guard to minimal amount of assistance for lower body dressing and grooming. He required contact guard assistance for toileting. With speech, he had continued receptive language deficits for functional 2-step commands and complex yes-no questions. On , when he wanted to leave against medical advice, I also spoke to his mother who he lives with and she was agreeable to having him at home and would try to assist him even though she is also felt that it was a bad decision for him to choose to leave rehabilitation at this time. DISCHARGE DIAGNOSES: 1. Left hemiplegia secondary to stroke. 2. Poorly controlled diabetes mellitus. 3. History of substance abuse. 4. Mood disorder. 5. Mood instability. 6. Obstructive sleep apnea. MEDICATIONS: At the time of him leaving included: 1. Acetaminophen 650 mg q. 6 hours p.r.n. 2. Aspirin 81 mg daily. 3. Atorvastatin 40 mg q.p.m. 4. Colace 100 mg b.i.d. 5. Ergocalciferol 50,000 units q. 7 days. 6. He was receiving heparin for DVT prophylaxis. 7. He was getting sliding scale lispro insulin q.a.c. and q.h.s. 8. He was restarted on his Janumet 50/500 one p.o. b.i.d. 9. He had a nicotine patch 21 mg per 24 hours. 10. Risperdal 2 mg q.h.s. 11. Senna 2 tablets q.p.m. DISCHARGE CONDITION: Guarded as he left against medical advice. DISCHARGE DISPOSITION: He called himself a cab and wheeled himself propelling with his feet to the cab to go home to live with his mother [id number]/[facility] #: [id number] MTDD
== END 2017-04-20 12:45 | disposition left against medical advice (07) | DRG 58 ==
LOC: PMRU 14:30 → UNDOADMIN 14:30 → UNDODISIN 04-20 12:45
PROVIDERS: ADMIT Physical Medicine & Rehabilitation; ATTEND Physical Medicine & Rehabilitation
PROC: F07Z5ZZ Bed Mobility Treatment (ICD-10-PCS; principal; 2017-04-10)
PROC: F07Z9ZZ Gait Training/Functional Ambulation Treatment (ICD-10-PCS; 2017-04-10)
PROC: F07Z8ZZ Transfer Training Treatment (ICD-10-PCS; 2017-04-10)
PROC: F07Z4ZZ Wheelchair Mobility Treatment (ICD-10-PCS; 2017-04-10)
PROC: F08Z0ZZ Bathing/Showering Techniques Treatment (ICD-10-PCS; 2017-04-10)
PROC: F08Z1ZZ Dressing Techniques Treatment (ICD-10-PCS; 2017-04-10)
PROC: F08Z3ZZ Feeding/Eating Treatment (ICD-10-PCS; 2017-04-10)
PROC: F06Z6ZZ Communicative/Cognitive Integration Skills Treatment (ICD-10-PCS; 2017-04-10)
DX: I69.354 Hemiplegia and hemiparesis following cerebral infarction affecting left non-dominant side (principal); F32.9 Major depressive disorder, single episode, unspecified; I69.319 Unspecified symptoms and signs involving cognitive functions following cerebral infarction; F17.210 Nicotine dependence, cigarettes, uncomplicated; F39 Unspecified mood [affective] disorder; G47.33 Obstructive sleep apnea (adult) (pediatric); F14.10 Cocaine abuse, uncomplicated; F10.21 Alcohol dependence, in remission; Z98.84 Bariatric surgery status; Z79.82 Long term (current) use of aspirin; Z79.01 Long term (current) use of anticoagulants; Z79.899 Other long term (current) drug therapy; Z88.6 Allergy status to analgesic agent; F90.9 Attention-deficit hyperactivity disorder, unspecified type
CPT/HCPCS: 36415; 71020; 80053; 82947; 85025; A9270-GY; J1644

== ENCOUNTER 2017-06-12 12:37 | Emergency (ER) | payer OTHER ==
--- NOTE | 2017-06-12 14:46 | RAD ---
INDICATION: Left great toe pain COMPARISON: None TECHNIQUE: AP, lateral, and oblique views were obtained. FINDINGS: There is no acute fracture or dislocation. There is soft tissue swelling. There are small heel spurs IMPRESSION: SMALL HEEL SPURS
[2017-06-12 14:53] VITALS: BP 124/79
--- NOTE | 2017-06-12 15:28 | UC ---
Anuj Cartagena Angela, scribed for Ekta Rowell MD on 06/12/17 at 1406 . Lower Extremity/Ankle HPI - HPI Summary HPI Summary: Mr. Patrick is a 46 y/o male presenting to [facility] c/o left great toe pain since March. Presented to [facility] today after completing a preschedule MRI brain (results n/a at time of pt evaluation). Reports that toe has been hurting since March 2017, has stubbed his toe several times. Admitted to [facility] 04/10/17, left AMA 04/20/17 (summary in [facility]). Resides with mom. He has taken advil and tylenol - doesn't help. Pt has diabetes (diagnosed 8 years ago) and states his glucose levels are normal (with highest 160mg/dl home test). He has an upcoming appointment with his PCP, Dr. Ash, on July 02. Has not yet seen Dr. Ash, will be seen as a new patient. Last tet immunization apprx 6 yrs ago. Not taking anticoagulants. Has not yet f/u with doctor(s) s/p hospital discharge. - History of Current Complaint Chief Complaint: UCLowerExtremity Stated Complaint: FOOT COMPLAINT Time Seen by Provider: 06/12/17 13:16 Hx Obtained From: Patient Onset/Duration: Lasting Weeks Severity Initially: Moderate Severity Currently: Moderate Aggravating Factor(s): Nothing Alleviating Factor(s): Nothing - Allergies/Home Medications Allergies/Adverse Reactions: Allergies Allergy/AdvReac Type Severity Reaction Status Date / Time No Known Allergies Allergy Verified 06/12/17 13:00 PMH/Surg Hx/FS Hx/Imm Hx Previously Healthy: No - see hpi Endocrine History: Diabetes - Type 2 Other Cardiovascular History: stroke Neurological History: CVA - March 2017 - Surgical History Surgical History: Yes Surgery Procedure, Year, and Place: GASTRIC BYPASS/APPY/UMBILICAL HERNIA X5/ TONSILS/NASAL SEPTUM, [place] - Family History Known Family History: Positive: Other - Alcohol abuse (brother, paternal grandmother) - Social History Alcohol Use: None Substance Use Type: None Smoking Status (MU): Heavy Every Day Tobacco Smoker Type: Cigarettes Amount Used/How Often: 1 ppd Length of Time of Smoking/Using Tobacco: 35 Have You Smoked in the Last Year: Yes Household Exposure Type: Cigarettes - Immunization History Most Recent Influenza Vaccination: july 2015 Most Recent Tetanus Shot: WITHIN 10 YEARS Most Recent Pneumonia Vaccination: 2016 Review of Systems Constitutional: Negative Skin: Other - see hpi Eyes: Negative ENT: Negative Respiratory: Negative Cardiovascular: Negative Gastrointestinal: Negative Motor: Other - left side weakness 2/2 stroke March 2017 Neurovascular: Other - left side weakness 2/2 stroke March 2017 hx dm neuropathy (?), reports that sensation L side has improved since March 2017. Musculoskeletal: Other: - left great toe pain. Neurological: Weakness Psychological: Negative - conversing easily and appropriately. All Other Systems Reviewed And Are Negative: Yes Physical Exam Triage Information Reviewed: Yes Appearance: Well-Nourished - a little unkempt sitting up. self-ambulates but with significant foot drop left Vital Signs: Initial Vital Signs Temp 96.7 F 06/12/17 12:53 Pulse 85 06/12/17 12:53 Resp 18 06/12/17 12:53 BP 99/64 06/12/17 12:53 Vital Signs Reviewed: Yes Eye Exam: Normal - grossly normal ENT Exam: Other - left facial droop Neck: Positive: Nontender Respiratory Exam: Normal, Other - no dyspnea, no tachypnea, normal respiratory rate Respiratory: Positive: Chest non-tender, Lungs clear, Normal breath sounds, No respiratory distress Cardiovascular Exam: Normal - regular rate, good general skin color Cardiovascular: Positive: Other: - Heart rate regular, good general skin color, good capillary refill Abdominal Exam: Normal Abdomen Description: Positive: Nontender, No Organomegaly, Soft Musculoskeletal Exam: Other - LLE: ingrown left great toe nail medial aspect. Nonfluctuant. Not draining. Toenails are cut very short. No plantar foot sore noted L foot. BLE + venous varicosities, + mild scattered hemosiderosis. Palbable dp/pt 1+ both feet. Neurological Exam: Other - Left facial droop, slurred speech. LUE and LLE hemiparesis. Able to use LUE (left hand) and LLE to some extent, but weakness is apparent. Psychological Exam: Normal - conversing easily and appropriately. speech slurred, but not unexcected 2/2 recent stroke Skin Exam: Normal - no visible or reported rash nondiphoretic. Diagnostics - Radiology Left Foot XR Xray Interpretation: Positive (See Comments) - Small heel spurs. Radiology Interpretation Completed By: Radiologist Lower Extremity Course/Dx - Course Course Of Treatment: Pt left AMA on 04/20/17 s/p admission 2/2 stroke 04/10/17 resulting in L hemiplegia (d/c summary 04/20/17 in [facility]). Pt had an MRI today , results are pending at time of pt examination. Came here for great toe evaluation after mri complete. Mr. Patrick adamantly declines going to the hospital for any reason, citing that he doesn't want to find himself being admitted. States that he will be following up with Dr. Ash in a couple weeks, as a new patient. Until now, has been seeing Dr. Friedman, but does not want to return to Dr. Friedman, nor does he want me to call his office, as he doesn't want to wait around or be admitted to the hospital. Mr. Patrick departed the [facility] with Adrienne kwong, which he says he likes and "I don't want to take it off." ( Advised to remove at night or if he feels that it is interfering with balance). He was given a walker as well, which he feels is more stabilizing and seems to like. He requested a cane, which he told me that the therapist suggested; as such, we dispensed a cane with him as well. Pt's mother took him home, where he resides with her. Xray foot (reviewed xray and report). no fx. + heel spur. D/w pt. Rx cephalexin. Rx: mupirocin / clotrimazole. Recommend f /u pcp. Recommend consider hand bender, he might check with pcp. Strongly encouraged to go to the ED for ANY problems, worse or new symptoms. Questions as posed answered to the best of my ability. - Differential Dx/Diagnosis Provider Diagnoses: Ingrown nail. Foot drop (2/2 previous stroke) Discharge - Discharge Plan Condition: Stable Disposition: HOME Prescriptions: Cephalexin CAP* [Keflex 500 CAP*] 500 mg PO TID #21 cap Clotrimazole 1% CREAM* [Clotrimazole 1%*] 1 applic TOPICAL BID #1 tube Mupirocin 2% OINT* [Bactroban 2 % Oint*] 1 applic TOPICAL BID #1 tube Patient Education Materials: Ingrown Nail (ED) Referrals: Mendoza Ash MD [Primary Care Provider] - Additional Instructions: Please follow up with your primary care provider in June as scheduled. Please seek medical attention for worse or new problems in the meantime. Antibiotic 3x / day as prescribed. Walking boot - if it does not interfere with your balance. STRONGLY RECOMMEND REHABILITATION AND PRISON FOOTWEAR. Check with your new doctor about this. And please ask about obtaining a referral to a foot doctor ( hand bender). From the foot standpoint, ok to shower - PLEASE USE SHOWER CHAIR, DO NOT HOME OFFICE CLAIM SPECIALIST SHOWER. Toenail: apply THIN layer of the followin /50 clotrimazole / mupirocin. Twice daily for 7 days. GO TO THE EMERGENCY DEPARTMENT FOR WORSE OR NEW PROBLEMS. The documentation as recorded by the Anuj werner Angela accurately reflects the service I personally performed and the decisions made by me, Ekta Rowell MD.
== END 2017-06-12 14:50 | disposition home or self-care (01) ==
LOC: UCEAST 12:37
DX: L60.0 Ingrowing nail (principal); M21.372 Foot drop, left foot; E11.9 Type 2 diabetes mellitus without complications; Z86.73 Personal history of transient ischemic attack (TIA), and cerebral infarction without residual deficits; F17.210 Nicotine dependence, cigarettes, uncomplicated; Z98.84 Bariatric surgery status
CPT/HCPCS: 99211; G0463

== ENCOUNTER 2017-09-07 20:57 | Emergency (ER) | payer OTHER ==
[2017-09-07 21:46] LABS: Hematocrit 47 % (42-52); Hemoglobin 16.2 g/dl (14.0-18.0); Mean Corpuscular HGB Conc 34 g/dl (31-36); Mean Corpuscular Hemoglobin 29 pg (27-31); Mean Corpuscular Volume 86 fL (80-94); Mean Platelet Volume 8 um3 (7.4-10.4); Red Blood Count 5.51 10^6/ul (4.0-5.4); Red Cell Distribution Width 14 % (10.5-15); White Blood Count 8.4 10^3/ul (3.5-10.8)
[2017-09-07 22:02] LABS: ALT 22 U/L (7-52); AST 15 U/L (13-39); Albumin 4.2 g/dL (3.2-5.2); Alkaline Phosphatase 87 U/L (34-104); Anion Gap 6 mmol/L (2-11); BUN/Creatinine Ratio 17.1 (8-20); Blood Urea Nitrogen 18 mg/dL (6-24); CO2 Carbon Dioxide 23 mmol/L (22-32); Calcium 8.9 mg/dL (8.6-10.3); Chloride 109 mmol/L (101-111); EGFR Non-African American 75.4 (>60); Globulin 2.5 g/dL (2-4); Glucose 141 mg/dL (70-100); Potassium 3.9 mmol/L (3.5-5.0); Sodium 138 mmol/L (133-145); Total Protein 6.7 g/dL (6.4-8.9)
[2017-09-07 22:08] LABS: Alcohol < 10 mg/dL (<10)
[2017-09-07 22:13] LABS: Urine Bilirubin Negative (Negative); Urine Glucose Negative (Negative); Urine Nitrite Negative (Negative)
[2017-09-07] MEDS: Iodixanol* (CONTRAST) 320 MG/ML 100 ML SDV IV ONE ×2 (22:13→22:33)
[2017-09-07 22:26] LABS: Benzodiazepine Urine Screen None Detected (None Detect)
--- NOTE | 2017-09-07 22:39 | ED ---
Halle Cartagena Alfonso, scribed for Sincere Ferreira MD on 09/07/17 at 2137 . Complex/Multi-Sys Presentation - HPI Summary HPI Summary: This patient is a 46 year old M presenting to [facility] with a chief complaint of LUE numbness since 1630 today. He reports similar symptoms when he had a CVA in May 07 2017. The patient rates the pain 8/10 in severity. Symptoms aggravated and alleviated by nothing. Patient reports lightheadedness, CP ( resolved) low back pain and stress (since March my 24 year old son if I could I d knock his fucking teeth out, and he takes advantage of me telling me I cant drive a car, he is telling me to go ). Patient has a left-sided facial droop. Patient denies palpitations. - History Of Current Complaint Chief Complaint: EDNeurologicalDeficit Hx Obtained From: Patient Onset/Duration: Gradual Onset, Lasting Hours, Still Present Timing: Constant Aggravating Factor(s): nothing Alleviating Factor(s): nothing Associated Signs And Symptoms: Positive: Other - lightheadedness, CP (resolved) low back pain and stress (since March my 24 year old son if I could Id knock his fucking teeth out, and he takes advantage of me telling me I cant drive a car, he is telling me to go ). Patient has a left-sided facial droop. Patient denies palpitations. - Allergies/Home Medications Allergies/Adverse Reactions: Allergies Allergy/AdvReac Type Severity Reaction Status Date / Time No Known Allergies Allergy Verified 06/12/17 13:00 PMH/Surg Hx/FS Hx/Imm Hx Endocrine/Hematology History: Reports: Hx Diabetes - Type II Denies: Hx Systemic Lupus Erythematosus, Hx Thyroid Disease Cardiovascular History: Denies: Hx Congestive Heart Failure, Hx Hypertension, Hx Pacemaker/ICD Respiratory History: Reports: Hx Sleep Apnea Denies: Hx Asthma, Hx Chronic Obstructive Pulmonary Disease (COPD) GI History: Reports: Hx Gall Bladder Disease - stones, Other GI Disorders - GASTRIC BYPASS Denies: Hx Ulcer History: Reports: Other Problems/Disorders - Nephrolithosis Denies: Hx Dialysis, Hx Renal Disease Musculoskeletal History: Denies: Hx Rheumatoid Arthritis, Hx Scoliosis Sensory History: 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 Denies: Hx Contacts or Glasses, Hx Hearing Aid Opthamlomology History: 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 Denies: Hx Contacts or Glasses Neurological History: Reports: Hx CVA - april 07, 2017 Denies: Hx Dementia, Hx Headaches, Hx Seizures, Other Neuro Impairments/ Disorders Psychiatric History: Reports: Hx of Violent Episodes Against Others, Other Psychiatric Issues/Disorders - alcohol/cocaine dependence, psychiatric hospitalization, hallucination Denies: Hx Panic Disorder - Cancer History Hx Chemotherapy: No - Surgical History Surgery Procedure, Year, and Place: GASTRIC BYPASS/APPY/UMBILICAL HERNIA X5/ TONSILS/NASAL SEPTUM, [place] Infectious Disease History: No Infectious Disease History: Denies: Hx Clostridium Difficile, Hx Hepatitis, Hx Human Immunodeficiency Virus (HIV), Hx of Known/Suspected MRSA, Hx Shingles, Hx Tuberculosis, Hx Known/ Suspected VRE, Hx Known/Suspected VRSA, History Other Infectious Disease, Traveled Outside the [place] in Last 30 Days - Family History Known Family History: Positive: Other - Alcohol abuse (brother, paternal grandmother) - Social History Alcohol Use: None Hx Substance Use: Yes - Hx of cocaine dependence Substance Use Type: Reports: None Hx Tobacco Use: Yes Smoking Status (MU): Heavy Every Day Tobacco Smoker Type: Cigarettes Amount Used/How Often: 1 ppd Length of Time of Smoking/Using Tobacco: 35 Have You Smoked in the Last Year: Yes Review of Systems Negative: Fever Positive: Chest Pain. Negative: Palpitations Positive: Other - low back pain Neurological: Other - lightheadedness, left-sided facial droop Positive: Numbness - LUE Psychological: Other - Stress All Other Systems Reviewed And Are Negative: Yes Physical Exam Triage Information Reviewed: Yes Vital Signs On Initial Exam: Initial Vitals Temp Pulse Resp BP Pulse Ox 98 F 90 16 159/101 97 09/07/17 20:59 09/07/17 20:59 09/07/17 20:59 09/07/17 20:59 09/07/17 20:59 Vital Signs Reviewed: Yes Appearance: Positive: No Pain Distress Skin: Positive: Warm, Dry. Negative: Diaphoretic, Purpura Eyes: Positive: EOMI ENT: Positive: Normal ENT inspection Neck: Positive: Supple, Nontender Respiratory/Lung Sounds: Positive: Clear to Auscultation, Breath Sounds Present Cardiovascular: Positive: Normal, RRR, Pulses are Symmetrical in both Upper and Lower Extremities Abdomen Description: Positive: Nontender, No Organomegaly Bowel Sounds: Positive: Present Neurological: Positive: Other - L sided facial droop consistent w baseline. Sensory numbness to light touch L forearm and L hand consistent w sxs he had on prior stroke. No extinction. NL strength. Weakness noted on L hand clip baker and L leg consistent w baseline after prior stroke. Mild dysmetria on finger to nose L hand, again consistent with symptoms after prior stroke per patient. No acutely new neurological deficits. Psychiatric: Positive: Normal - Negar Coma Scale Best Eye Response: 4 - Spontaneous Best Motor Response: 6 - Obeys Commands Best Verbal Response: 5 - Oriented Diagnostics - Vital Signs Vital Signs Temp Pulse Resp BP Pulse Ox 09/07/17 20:59 98 F 90 16 159/101 97 - Laboratory Lab Results: Lab Results 09/07/17 09/07/17 09/07/17 Range/Units 21:32 21:32 21:32 WBC 8.4 (3.5-10.8) 10^3/ul RBC 5.51 H (4.0-5.4) 10^6/ul Hgb 16.2 (14.0-18.0) g/dl Hct 47 (42-52) % MCV 86 (80-94) fL MCH 29 (27-31) pg MCHC 34 (31-36) g/dl RDW 14 (10.5-15) % Plt Count 261 (150-450) 10^3/ul MPV 8 (7.4-10.4) um3 Neut % (Auto) 53.9 (38-83) % Lymph % (Auto) 34.8 (25-47) % [place] % (Auto) 8.4 (1-9) % Eos % (Auto) 2.5 (0-6) % Baso % (Auto) 0.4 (0-2) % Absolute Neuts (auto) 4.6 (1.5-7.7) 10^3/ul Absolute Lymphs (auto) 2.9 (1.0-4.8) 10^3/ul Absolute Monos (auto) 0.7 (0-0.8) 10^3/ul Absolute Eos (auto) 0.2 (0-0.6) 10^3/ul Absolute Basos (auto) 0 (0-0.2) 10^3/ul Absolute Nucleated RBC 0.01 10^3/ul Nucleated RBC % 0.1 INR (Anticoag Therapy) 0.88 L (0.89-1.11) APTT 32.3 (26.0-36.3) seconds Sodium 138 (133-145) mmol/L Potassium 3.9 (3.5-5.0) mmol/L Chloride 109 (101-111) mmol/L Carbon Dioxide 23 (22-32) mmol/L Anion Gap 6 (2-11) mmol/L BUN 18 (6-24) mg/dL Creatinine 1.05 (0.67-1.17) mg/dL Est GFR ( Amer) 97.0 (>60) Est GFR (Non-Af Amer) 75.4 (>60) BUN/Creatinine Ratio 17.1 (8-20) Glucose 141 H (70-100) mg/dL Lactic Acid (0.5-2.0) mmol/L Calcium 8.9 (8.6-10.3) mg/dL Total Bilirubin 0.30 (0.2-1.0) mg/dL AST 15 (13-39) U/L ALT 22 (7-52) U/L Alkaline Phosphatase 87 (34-104) U/L Troponin I 0.00 (<0.04) ng/mL Total Protein 6.7 (6.4-8.9) g/dL Albumin 4.2 (3.2-5.2) g/dL Globulin 2.5 (2-4) g/dL Albumin/Globulin Ratio 1.7 (1-3) Urine Color Urine Appearance Urine pH (5-9) Ur Specific [place] (1.010-1.030) Urine Protein (Negative) Urine Ketones (Negative) Urine Blood (Negative) Urine Nitrate (Negative) Urine Bilirubin (Negative) Urine Urobilinogen (Negative) Ur Leukocyte Esterase (Negative) Urine Glucose (Negative) Urine Opiates Screen (None Detect) Ur Barbiturates Screen (None Detect) Ur Phencyclidine Scrn (None Detect) Ur Amphetamines Screen (None Detect) U Benzodiazepines Scrn (None Detect) Urine Cocaine Screen (None Detect) U Cannabinoids Screen (None Detect) Serum Alcohol < 10 (<10) mg/dL 09/07/17 09/07/17 09/07/17 Range/Units 21:48 22:00 22:00 WBC (3.5-10.8) 10^3/ul RBC (4.0-5.4) 10^6/ul Hgb (14.0-18.0) g/dl Hct (42-52) % MCV (80-94) fL MCH (27-31) pg MCHC (31-36) g/dl RDW (10.5-15) % Plt Count (150-450) 10^3/ul MPV (7.4-10.4) um3 Neut % (Auto) (38-83) % Lymph % (Auto) (25-47) % [place] % (Auto) (1-9) % Eos % (Auto) (0-6) % Baso % (Auto) (0-2) % Absolute Neuts (auto) (1.5-7.7) 10^3/ul Absolute Lymphs (auto) (1.0-4.8) 10^3/ul Absolute Monos (auto) (0-0.8) 10^3/ul Absolute Eos (auto) (0-0.6) 10^3/ul Absolute Basos (auto) (0-0.2) 10^3/ul Absolute Nucleated RBC 10^3/ul Nucleated RBC % INR (Anticoag Therapy) (0.89-1.11) APTT (26.0-36.3) seconds Sodium (133-145) mmol/L Potassium (3.5-5.0) mmol/L Chloride (101-111) mmol/L Carbon Dioxide (22-32) mmol/L Anion Gap (2-11) mmol/L BUN (6-24) mg/dL Creatinine (0.67-1.17) mg/dL Est GFR ( Amer) (>60) Est GFR (Non-Af Amer) (>60) BUN/Creatinine Ratio (8-20) Glucose (70-100) mg/dL Lactic Acid 1.4 (0.5-2.0) mmol/L Calcium (8.6-10.3) mg/dL Total Bilirubin (0.2-1.0) mg/dL AST (13-39) U/L ALT (7-52) U/L Alkaline Phosphatase (34-104) U/L Troponin I (<0.04) ng/mL Total Protein (6.4-8.9) g/dL Albumin (3.2-5.2) g/dL Globulin (2-4) g/dL Albumin/Globulin Ratio (1-3) Urine Color Yellow Urine Appearance Clear Urine pH 5.0 (5-9) Ur Specific [place] 1.028 (1.010-1.030) Urine Protein Negative (Negative) Urine Ketones Negative (Negative) Urine Blood Negative (Negative) Urine Nitrate Negative (Negative) Urine Bilirubin Negative (Negative) Urine Urobilinogen Negative (Negative) Ur Leukocyte Esterase Negative (Negative) Urine Glucose Negative (Negative) Urine Opiates Screen None detected (None Detect) Ur Barbiturates Screen None detected (None Detect) Ur Phencyclidine Scrn None detected (None Detect) Ur Amphetamines Screen None detected (None Detect) U Benzodiazepines Scrn None detected (None Detect) Urine Cocaine Screen Presumptive positive H (None Detect) U Cannabinoids Screen None detected (None Detect) Serum Alcohol (<10) mg/dL Result Diagrams: 09/07/17 21:32 09/07/17 21:32 Lab Statement: Any lab studies that have been ordered have been reviewed, and results considered in the medical decision making process. - Radiology CXR Radiology Interpretation Completed By: ED Physician - Decreased lung volume bilaterally. No obvious consolidations. - CT Brain CT Interpretation Completed By: Radiologist - KENDALL. ED physician has reviewed this radiology report and agrees. CTA Head/Neck CT Interpretation Completed By: Radiologist - NAD. ED physician has reviewed this radiology report and agrees. - EKG 2111 Cardiac Rate: NL EKG Rhythm: Sinus Rhythm - [address] Segment: Non-Specific Re-Evaluation - Re-Evaluation First Eval Change: Improved - numbness slightly improved Complex Multi-Symp Course/Dx Assessment/Plan: pt says he feels improved from initial presentation, pt requests discharge currently and refuses to be admitted, I informed patient of negative imaging for new acute pathology, and I also informed patient of possiblity of TIA and risk of future stroke and currently subtle stroke not seen on imaging. Pt understnads and requests discharge at this time. Demonstrate understadnding and agrees to return to the ED for wrosening symptoms. Instructed to take asa 81 mg daily, and to fu with neurologist. agrees to and undersetnads dc instructions. - Diagnoses Provider Diagnoses: Numbness and tingling Discharge - Discharge Plan Condition: Stable Disposition: HOME Prescriptions: Aspirin EC Low Dose* [Ecotrin EC Low Dose 81 MG*] 81 mg PO DAILY #21 tab.ec Patient Education Materials: Paresthesia (ED) Referrals: Mendoza Ash MD [Primary Care Provider] - Laurie Batista MD [Medical Doctor] - Additional Instructions: 1. PLEASE MAKE AN APPOINTMENT FIRST THING IN THE MORNING TO BE SEEN BY YOUR NEUROLOGIST SOON POSSIBLE 2. PLEASE RETURN IMMEDIATELY TO THE ER IF YOU HAVE ANY WORSENING OR CONCERNING SYMPTOMS The documentation as recorded by the Halle werner Alfonso accurately reflects the service I personally performed and the decisions made by me, Sincere Ferreira MD.
--- NOTE | 2017-09-07 23:01 | RAD ---
INDICATION: Left-sided weakness COMPARISON: Most recent comparison chest x-ray April 19, 2017 TECHNIQUE: Single AP portable view of the chest was obtained. FINDINGS: Image quality is compromised due to the relative inferiority of a portable chest x-ray. The heart and mediastinum exhibit normal size and contour. There is questionably patchy infiltrate at the left greater than right lung base not seen on the previous chest x-ray. This could simply be the consequence of poor inspiratory effort. There is no evidence of a large pleural effusion. Visualized bones are normal for the patient's age. IMPRESSION: Questionable infiltrate at the left greater than right lung bases. This could simply be the consequence of poor inspiratory effort and/or relative inferiority of a portable chest x-ray.
[2017-09-07] MEDS ORDERED: Aspirin EC Low Dose* 81 MG TAB.EC PO ONE ×2 (23:57)
[2017-09-08 00:19] VITALS: BP 127/75
--- NOTE | 2017-09-08 08:00 | RAD ---
INDICATION: Left arm numbness COMPARISON: Most recent CT of the brain April 09, 2017 TECHNIQUE: Contiguous axial sections of the brain were obtained from the skull base to the vertex without contrast. FINDINGS: The ventricles, cisterns and sulci are within normal limits. Again seen is a focus of right of midline pontine encephalomalacia unchanged from the prior CT of the brain. Elsewhere the colmenares-white matter differentiation is adequately maintained and there is no sulcal effacement. No significant focal abnormality or mass effect is present. There is no evidence for intracranial hemorrhage. No significant focal osseous abnormality is present. The visualized portion of the paranasal sinuses and mastoid air cells appear clear. IMPRESSION: Stable, focal pontine infarction not changed since the April 09, 2017 CT.
--- NOTE | 2017-09-08 08:22 | RAD ---
CPT II: CPT II Codes: 3100F INDICATION: Left arm numbness COMPARISON: CTA head and neck dated April 07, 2017 TECHNIQUE: A CT angiogram of the head and neck was performed with 80 cc of Visipaque 320. Contiguous axial sections were obtained from the thoracic inlet through the [place] of [place]. Images were reconstructed in the sagittal, coronal planes and in a 3-D volume rendered format. The distal cervical internal carotid artery diameter is used as the denominater for stenosis measurement. CTA NECK: The common and internal carotid arteries are patent without hemodynamically significant stenosis. There is a mild amount of mixed attenuation atherosclerotic plaque at the bilateral carotid bulbs. Right: Below the carotid bifurcation the common carotid artery measures 8 mm in diameter. Above the bifurcation the internal carotid artery measures 9 mm in short axis diameter yielding 0% stenosis. Left: Below the carotid bifurcation the common carotid measures 8 mm in diameter. Above the bifurcation the internal carotid artery measures 10 mm in short axis diameter yielding 0% degree stenosis. The vertebral arteries are patent without gross abnormality. CTA of the brain: The internal carotid, anterior and middle cerebral arteries appear are patent without high grade stenosis or occlusion. The vertebral, basilar and left posterior cerebral arteries appear patent without high grade stenosis or occlusion. The right posterior cerebral artery is diminutive but this is similar to the April 07, 2017 CTA of the brain. The left posterior communicating artery is either extremely diminutive or absent. No focal luminal filling defect, aneurysm or vascular malformation is seen. IMPRESSION: 1. The right posterior communicating artery is diminutive relative to the left but this is unchanged since the April 07, 2017 CTA of the brain. 2. There are no acute intracranial arterial abnormalities.
== END 2017-09-08 01:20 | disposition home or self-care (01) ==
LOC: ED 20:57
DX: R20.0 Anesthesia of skin (principal); R07.9 Chest pain, unspecified; M54.5 Low back pain; R42 Dizziness and giddiness; E11.9 Type 2 diabetes mellitus without complications; F17.210 Nicotine dependence, cigarettes, uncomplicated
CPT/HCPCS: 36415; 70450; 70496; 70498; 71010; 80053; 80307; 80320; 81003; 83605; 84484; 85025; 85610; 85730; 93005; 99283; A9270-GY; G0480; Q9967

== ENCOUNTER → 2018-08-20 13:10 | Emergency (ER) | payer OTHER ==
[~2018-08-20 13:10] MED LIST: Albuterol/Ipratropium NEB.SOL* Albuterol 2.5 MG/Ipratropium 0.5 MG 3 ML INH ONE
--- OUTSIDE RECORDS SUMMARY | 2018-08-20 13:42 | XMS REPORT ---
:1970 External Reference #:[id number] Author Organization [facility] Address [address] [place] [address] [address] [place] [address] Phone [phone] Care Team Providers Name Role Phone Mendoza Ash MD Primary Care Physician Unavailable Payers Type Date Identification Numbers Payment Provider Subscriber Commercial Policy Number: [id number] [employer] Benja Patrick PayID: [id number] [address] [address] [place] [address] Problems Date Description Provider Status Onset: 02/24/2015 Type 2 diabetes mellitus Yenni Temple M.D. Active Onset: 11/20/2012 Bariatric Surgery Status Yenni Temple M.D. Active Onset: 11/20/2012 Vitamin B-complex deficiency Yenni Temple M.D. Active Onset: 11/20/2012 Vitamin D deficiency Yenni Temple M.D. Active Onset: 01/27/2014 History of cocaine abuse Yenni Temple M.D. Active Note: substance induced mood disorder underwent rehab in 2013 Onset: 02/01/2015 Cholelithiasis without obstruction Yenni Temple M.D. Active Onset: 04/17/2016 Mixed hyperlipidemia Dillon Friedman M.D. Active Onset: 07/02/2017 Ischemic stroke Mendoza Ash, Active Richi,FACP Note: RT tamika, L-sided weakness Onset: 05/07/2018 Peripheral vascular disease Charlie Vuong M.D. Active Onset: 06/03/2018 Ex-smoker Mendoza Ash M.D.,FACP Active Onset: 07/02/2017 Tobacco user Mendoza Ash M.D.,FACP Inactive Inactive: 06/03/2018 Onset: 09/03/2014 Diarrhea Dandre Varma M.D. Resolved Resolved: 01/29/2015 Onset: 09/03/2014 Abdominal pain Dandre Varma M.D. Resolved Resolved: 01/29/2015 Family History Date Family Member(s) Problem(s) Comments Father due to ID () - suddenly age 60; (+) smoker Mother Diabetes First Son ADHD Second Son ADHD Siblings 1 1 brother First Brother Alive And Well Second Brother due to as a () at 3 days; ? congenital heart problem Social History Type Date Description Comments Marital Status Lives With Mother Lives With Son Occupation Unemployed on SSI for DM, ? learning disability ETOH Use 06/03/2018 Denies alcohol use Recreational Drug Use Denies Drug Use Smoking Patient is a former smoker Recreational Drug Use Former Drug User cocaine for 15 yrs , stopped in rehab 2013 Recreational Drug Use Current Drug User cocaine, last use was 2 weeks ago. Daily Caffeine Consumes on average 1 soda per day Exercise Type/Frequency Exercises regularly pt reports walking 30 minutes to 1 hour daily General Hx Text from of 17 yrs /left because of drugs 2 sons Allergies, Adverse Reactions, Alerts Date Description Reaction Status Severity Comments 10/29/2012 NKDA active Medications Medication Date Status Form Strength Qnty SIG Indications Ordering Provider Hydrocodone-Acet 06/03 Active Tablets 5-325mg 50tab 1-2 by Mendoza summit campussusan s mouth every Eder Ash, 6 hours M.DDarío,FACP prn. Nicoderm CQ 04/24 Active Patches 14mg/24HR 28uni Apply 24HR ts Topically Pachikara Every Day , MBetty Metformin HCL 04/22 Active Tablets 500mg 120ta 2 tab by bs mouth twice Pachikara a day , M.D. Glipizide ER 01/10 Active Tablets ER 5mg 90tab Take One 24HR s Tablet By Eder Ash Mouth Every M.DDarío,FACP Morning Lisinopril 10/08 Active Tablets 5mg 90tab 1 by mouth s every day Eder Ash M.D.,FACP Aspir-81 07/[address] 81mg 100ta 1 by mouth bs every day Eder Ash M.D.,FACP Stendra 07/02 Active Tablets 200mg 6tabs 2-1 tab Mendoza by mouth Eder Ash, every day M.D.,FACP as needed Atorvastatin 03/19 Active Tablets 40mg 30tab take one E78.2 Mendoza s tablet by Eder Ash, mouth at M.D.,FAC bedtime Freestyle 02/25 Active Misc 100un use once Dillon Lora Uniick II its daily or as Nato Friedman directed dx M.Eedr code: dm type ii 250.02 Freestyle Lite 02/24 Active Device 1unit check Yenni Blood Glucose s fingerstick Maverick, Monitoring daily M.DDarío System Freestyle Lite 02/24 Active Strips 120un test up to Yenni Test its 3 times a Temple, day dx Richi code: 250.02 Cyanocobalamin 10/29 Active Solution 1000mcg/M 12uni q 2 months 266.2 Yenni L ts Richi Temple Hydrocodone 06/03 Hx Solution 7.5-325mg 60uni 5 ml every 842.19 Td Mix Bitartrate/Aceta /2017 /15ML ts 6 hrs as mami Wilksophen - needed M.D.,FACP 06/03 Metformin HCL ER 01/10 Hx Tablets ER 1000mg 60tab take one Mendoza (Osm) 24HR s tablet by Eder Ash, - mouth twice M.D.,FACP 04/22 a Synjardy 12/31 Hx Tablets 5-1000mg 60tab take 1 Mendoza s tablet by Eder Ash, - mouth two M.D.,FACP 01/10 times daily Baclofen 11/20 Hx Tablets 10mg 60tab 1 po qam I69.354 Konstantin S. s for 1 wk Ignacia, - then 1 bid M.D. 05/06 Metformin HCL 05/29 Hx Tablets 500mg 60tab two tabs Elisabeth s twice a day Sarai, - COMPUTATIONAL SCIENCES PROFESSOR 12/31 Xanax 05/15 Hx Tablets 1mg 2tabs take two I63.9 Dillon Michele. pills 30-45 Idalia, - munutes M.D. 07/02 before scan Mometasone 02/01 Hx Cream 0.1% 15gm apply twice R21 Dillon E. Furoate a day for Idalia, - 2-3 weeks M.D. 05/14 max Nicotine 05/25 Hx Patches 21mg/24HR 28uni apply 1 Yamil Transdermal 24HR ts patch Brodhead, System - daily. M.D. 02/01 Remove old patch in the morning and reapply new patch. Augmentin 12/27 Hx Tablets 875-125mg 20tab 1 tab by Yenni /2015 s mouth twice Maverick, - a day M.D. 04/17 Fluticasone 10/28 Hx Suspension 50mcg/Act 16uni 2 sprays J30.89 Carlos Propionate /2015 ts each Tanna, COMPUTATIONAL SCIENCES PROFESSOR - nostril qd. 04/17 Nicotine 07/12 Hx Lozenges 2mg 30uni as needed F17.290 Yenni Polacrilex /2014 ts for Maverick, - cravings M.D. 10/28 Janumet 03/22 Hx Tablets 50-500mg 60tab Take One Dillon E. s Tablet By Idalia, - Mouth Twice M.D. 07/02 A /2016 Bydureon 03/07 Hx Pen 2mg 4unit SC once a s week Maverick - M.D. 03/22 Freestyle Lite 08 Hx 100un as needed Dillon Lora Lancserafin its Dx: 250.52 Idalia - M.D. 02/25 Freestyle 02/25 Hx Misc 100un daily and Dillon Duttno its as needed Idalia - M.D. 02/25 Victoza 02/24 Hx Solution 18mg/3ML 1box 0.6mg/day 250.00 Minnie /2015 Pen-Inject subcutanepriya Mcleod, - sly once a M.D. Accucheck 02/24 Hx 100un as needed 250.00 Yenni Lanc its Maverick, (Soft-Clix) - M.D. 02/25 Accu-Chek Homa 02/24 Hx 100un use 2-3 a 250.00 Yenni Test Strips /2014 its day to Trsitin Temple check bs M.Eder 02/25 readings. Dx 250.02 Accu-Check 02/24 Hx Device 1unit check 2-3 250.00 Yenni Glucose Monitor s times a day Tristin Temple M.D. 02/25 Atorvastatin 02/24 Hx Tablets 20mg 30tab take one E78.2 Dillon Collado s tablet by Idalia - mouth at M.DDarío 03/19 bedtime Cephalexin 01/27 Hx Tablets 250mg 14tab 1 by mouth 682.9 Yenni s twice a day Tristin Temple M.D. 02/24 Ergocalciferol 03/16 Hx Capsules [id number] 12cap 1 tab by Dillon Lora s mouth every Idalia, - week M.DDarío 05/14 Cyclobenzaprine 12/24 Hx Tablets 10mg 30tab one po 2x 847.1 Minnie HCL /2013 s per day prn Harsha, - spasm M.DDarío 03/04 Acetaminophen/Co 12/24 Hx Tablets 300-30mg 30tab 1 tab po 2 847.1 Minnie deine #3 /2013 s x per day Tristin Mcleod at least M.DDarío 12/24 4-6 hours /2013 apart as needed for pain Amoxicillin/Clav 08/31 Hx Tablets 500-125mg 20tab 1 po bid 465.9 Dillon Lora ulanate /2012 s Reese Friedman MBetty 12/24 Wellbutrin XL 07/07 Hx Tablets ER 150mg 60tab 1 po qd X 5 305.1 Yenni 24HR s days then 1 Tristin Temple tab bid M.DDarío 12/24 Ergocalciferol 06/10 Hx Capsules [id number] 8caps 1 cap by Minnie /2012 mouth every Harsha - week MBetty 03/04 Tramadol HCL 06/10 Hx Tablets 50mg 20tab 1 po bid as 724.2 Yenni s needed Tristin Temple M.D. 08/31 Calcium 600 06/10 Hx Tablets 600mg 120ta 1 tab by 268.9 bs mouth a day Tristin Mcleod M.D. 03/04 Omeprazole 06/[address] 20mg 60tab 1 po daily 535.50 s am on Maverick, - empty M.DDarío 12/24 Ambien 06/03 Hx Tablets 5mg 20tab as needed 780.52 s before Maverick, - sleep M.DDarío 08/31 Hydrocodone 10/29 Hx Solution 7.5-325mg 60uni 5 ml every 842.19 Yenni Bitartrate/Aceta /2012 /ML ts 6 hrs as matthias Temple - needed MBetty 06/03 Cyanocobalamin Hx Solution 1000mcg/M 25ml 1.0 cc im q Unknown /0000 L month - 10/29 Advil PM Hx Tablets 200-38mg 30tab prn Unknown /0000 s - 06/10 Prazosin HCL Hx Capsules 1mg 60cap 4 by mouth Yenni /0000 s at bedtime Tristin Temple M.D. 11/21 Quetiapine Hx Tablets 200mg 1 by mouth Unknown Fumarate /0000 every day - 11/21 Adderall XR Hx Caps ER 10mg 60cap 2 by mouth Yenni /0000 24HR s twice a day Tristin Temple M.D. 04/13 Medications Administered in Office Medication Date Status Form Strength Qnty SIG Indications Ordering Provider B-12 Injection Administered Injection Nurse Visit 018 A B-12 Injection Administered Injection Nurse Visit 018 A B-12 Injection Administered Injection Nurse Visit 018 A B-12 Injection Administered Injection Mendoza Ash M.D.,FACP B-12 Injection Administered Injection Nurse Visit 018 A B-12 Injection Administered Injection Nurse Visit 017 A B-12 Injection Administered Injection Nurse Visit 017 A B-12 Injection Administered Injection Dillon Friedman M.D. B-12 Injection Administered Injection Nurse Visit 017 C B-12 Injection Administered Injection Nurse Visit 017 C B-12 Injection Administered Injection Nurse Visit 017 C B-12 Injection Administered Injection Nurse Visit 016 A B-12 Injection Administered Injection Nurse Visit 016 A B-12 Injection Administered Injection Nurse Visit 016 C B-12 Injection Administered Injection Nurse Visit 016 C B-12 Injection Administered Injection Nurse Visit 016 C B-12 Injection Administered Injection Nurse Visit 016 C B-12 Injection Administered Injection Carlos Tanna, 016 COMPUTATIONAL SCIENCES PROFESSOR B-12 Injection Administered Injection Nurse Visit 015 A B-12 Injection Administered Injection Nurse Visit 015 A B-12 Injection Administered Injection Nurse Visit 015 A B-12 Injection Administered Injection Yenni Tia Temple M.D. B-12 Injection Administered Injection Carlos Tanna, 015 COMPUTATIONAL SCIENCES PROFESSOR B-12 Injection Administered Injection Nurse Visit 014 C B-12 Injection Administered Injection Nurse Visit 014 C B-12 Injection Administered Injection Minnie Tyler Mcleod M.D. B-12 Injection Administered Injection Nurse Visit 014 C B-12 Injection Administered Injection Yenni Tyler Temple M.D. B-12 Injection Administered Injection Nurse Visit 013 C B-12 Injection Administered Injection Nurse Visit 013 C B-12 Injection Administered Injection Yenni Blaise Temple M.D. B-12 Injection Administered Injection Nurse Visit 013 Tburg B-12 Injection Administered Injection Nurse Visit 013 [place]burg B-12 Injection Administered Injection Nurse Visit 013 [place] B-12 Injection Administered Injection Nurse Visit 013 [place]burg B-12 Injection Administered Injection Nurse Visit 013 [place]burg B-12 Injection Administered Injection Nurse Visit 013 [place] B-12 Injection Administered Injection Richi Clifford-12 Injection Administered Injection Nurse Visit 013 Manisha B-12 Injection Administered Injection Yenni 013 Richi Temple Immunizations CPT Code Status Date Vaccine Reaction Lot # [id number] Given 07/09/2018 Influenza Virus Vaccine, [id number] Quadrivalent, Split, Preservative Free 16579 Given 06/26/2017 Influenza Virus Vaccine, [id number] Quadrivalent, Split, Preservative Free 62055 Given 07/10/2016 Influenza Virus Vaccine, no reaction noted ... [id number] Quadrivalent, Split, hh Preservative Free 88281 Given 08/15/2015 Pneumococcal Conjugate [id number] Vaccine 13 Valent For Intramuscular Use 86233 Given 07/12/2015 Influenza Virus Vaccine, [id number] Quadrivalent, Split, Preservative Free 79482 Given 07/12/2014 Influenza Virus Vaccine, Quadrivalent, Split, Preservative Free 95406 Given 07/12/2014 Influenza Virus Vaccine, [id number] Quadrivalent, Split, Preservative Free 09874 Given 10/21/2009 Tetanus And Diptheria (Td) For Adult Use Preservative Free Vital Signs Date Vital Result Comment 07/23/2018 Height 65 inches 5'5" Weight 209.50 lb Heart Rate 95 /min BP Systolic 130 mmHg BP Diastolic 80 mmHg O2 % BldC Oximetry 98 % BMI (Body Mass Index) 34.9 kg/m2 07/14/2018 Height 65 inches 5'5" Weight 210.50 lb Heart Rate 84 /min BP Systolic Sitting 138 mmHg Rue large cuff BP Diastolic Sitting 92 mmHg Rue large cuff Respiratory Rate 16 /min Pain Level 97 BMI (Body Mass Index) 35.0 kg/m2 Neck Circumference in inches 17.75 06/03/2018 Height 65 inches 5'5" Weight 209.00 lb Heart Rate 83 /min BP Systolic Sitting 160 mmHg BP Diastolic Sitting 110 mmHg BP Systolic Recheck 142 mmHg BP Diastolic Recheck 100 mmHg Body Temperature 97.5 F O2 % BldC Oximetry 97 % BMI (Body Mass Index) 34.8 kg/m2 05/07/2018 Height 65 inches 5'5" Weight 201.00 lb w/ shoes Heart Rate 80 /min BP Systolic Sitting 124 mmHg lue lg cuff BP Diastolic Sitting 82 mmHg lue lg cuff Respiratory Rate 20 /min BMI (Body Mass Index) 33.4 kg/m2 Ejection Fraction 55-60% echo 04/08/17 04/07/2018 Weight 206.00 lb Heart Rate 89 /min BP Systolic Sitting 128 mmHg BP Diastolic Sitting 90 mmHg Body Temperature 97.6 F O2 % BldC Oximetry 96 % 12/31/2017 Weight 208.00 lb Heart Rate 98 /min BP Systolic Sitting 130 mmHg BP Diastolic Sitting 88 mmHg Body Temperature 98.0 F O2 % BldC Oximetry 97 % 11/20/2017 Height 64 inches 5'4" Weight 202.00 lb Heart Rate 90 /min BP Systolic Sitting 128 mmHg BP Diastolic Sitting 72 mmHg Respiratory Rate 17 /min BMI (Body Mass Index) 34.7 kg/m2 10/08/2017 Height 64 inches 5'4" Weight 204.00 lb Heart Rate 119 /min BP Systolic Sitting 144 mmHg BP Diastolic Sitting 102 mmHg BP Systolic Recheck 170 mmHg BP Diastolic Recheck 110 mmHg Body Temperature 97.5 F O2 % BldC Oximetry 95 % BMI (Body Mass Index) 35.0 kg/m2 09/23/2017 Weight 204.00 lb Heart Rate 79 /min BP Systolic Sitting 120 mmHg BP Diastolic Sitting 80 mmHg Body Temperature 96.6 F O2 % BldC Oximetry 95 % 07/02/2017 Weight 195.50 lb Heart Rate 96 /min BP Systolic Sitting 132 mmHg BP Diastolic Sitting 68 mmHg Body Temperature 97.9 F O2 % BldC Oximetry 96 % 05/15/2017 Height 65 inches 5'5" Weight 199.00 lb Heart Rate 100 /min BP Systolic Sitting 120 mmHg BP Diastolic Sitting 80 mmHg Body Temperature 97.6 F O2 % BldC Oximetry 96 % BMI (Body Mass Index) 33.1 kg/m2 03/19/2017 Weight 203.00 lb Heart Rate 78 /min BP Systolic 110 mmHg BP Diastolic 68 mmHg Body Temperature 98.1 F O2 % BldC Oximetry 97 % 02/01/2017 Weight 209.00 lb Heart Rate 77 /min BP Systolic Sitting 132 mmHg BP Diastolic Sitting 84 mmHg Respiratory Rate 15 /min Body Temperature 97.6 F O2 % BldC Oximetry 98 % 10/23/2016 Height 64 inches 5'4" Weight 213.00 lb Heart Rate 81 /min BP Systolic 132 mmHg BP Diastolic 84 mmHg Body Temperature 96.8 F O2 % BldC Oximetry 98 % BMI (Body Mass Index) 36.6 kg/m2 04/17/2016 Height 64 inches 5'4" Weight 214.00 lb Heart Rate 76 /min BP Systolic Sitting 135 mmHg BP Diastolic Sitting 88 mmHg Body Temperature 97.1 F BMI (Body Mass Index) 36.7 kg/m2 10/28/2015 Weight 210.00 lb Heart Rate 85 /min BP Systolic Sitting 132 mmHg BP Diastolic Sitting 76 mmHg Body Temperature 97.5 F O2 % BldC Oximetry 98 % 07/12/2015 Height 65 inches 5'5" Weight 213.00 lb Heart Rate 78 /min BP Systolic 120 mmHg BP Diastolic 82 mmHg Body Temperature 98.5 F BMI (Body Mass Index) 35.4 kg/m2 06/20/2015 Weight 217.25 lb without shoes Heart Rate 88 /min BP Systolic Sitting 138 mmHg BP Diastolic Sitting 84 mmHg BP Systolic Standing 126 mmHg standing P78 BP Diastolic Standing 74 mmHg standing P78 BP Systolic Lying Down 132 mmHg laying P86 BP Diastolic Lying Down 82 mmHg laying P86 BP Systolic Recheck 118 mmHg sitting P76 BP Diastolic Recheck 72 mmHg sitting P76 Body Temperature 98.6 F O2 % BldC Oximetry 98 % 02/24/2015 Weight 222.00 lb Heart Rate 105 /min BP Systolic Sitting 134 mmHg BP Diastolic Sitting 80 mmHg Body Temperature 98.7 F O2 % BldC Oximetry 95 % 01/27/2015 Weight 226.00 lb Heart Rate 80 /min BP Systolic Sitting 136 mmHg BP Diastolic Sitting 90 mmHg Body Temperature 97.1 F O2 % BldC Oximetry 95 % 12/07/2014 Weight 218.50 lb Heart Rate 99 /min BP Systolic Sitting 114 mmHg BP Diastolic Sitting 78 mmHg O2 % BldC Oximetry 94 % 09/03/2014 Weight 202.50 lb Heart Rate 84 /min BP Systolic Sitting 112 mmHg BP Diastolic Sitting 62 mmHg Body Temperature 98.4 F 05/04/2014 Weight 202.00 lb Heart Rate 83 /min BP Systolic Sitting 117 mmHg BP Diastolic Sitting 77 mmHg 04/29/2014 Weight 202.00 lb Heart Rate 66 /min BP Systolic Sitting 138 mmHg BP Diastolic Sitting 80 mmHg 03/04/2014 Weight 193.00 lb Heart Rate 76 /min BP Systolic Sitting 114 mmHg BP Diastolic Sitting 66 mmHg 12/24/2013 Weight 188.00 lb Heart Rate 75 /min BP Systolic Sitting 108 mmHg BP Diastolic Sitting 80 mmHg Body Temperature 97.4 F O2 % BldC Oximetry 97 % 08/31/2013 Weight 177.00 lb Heart Rate 82 /min BP Systolic Sitting 134 mmHg BP Diastolic Sitting 80 mmHg Body Temperature 96.0 F 07/07/2013 Weight 177.25 lb Heart Rate 86 /min BP Systolic Sitting 116 mmHg BP Diastolic Sitting 78 mmHg 06/10/2013 Heart Rate 80 /min BP Systolic Sitting 108 mmHg BP Diastolic Sitting 74 mmHg O2 % BldC Oximetry 97 % 06/03/2013 Weight 171.00 lb Heart Rate 81 /min BP Systolic Sitting 124 mmHg BP Diastolic Sitting 74 mmHg 10/29/2012 Height 64.5 inches 5'4.50" Weight 160.00 lb Heart Rate 85 /min BP Systolic Sitting 102 mmHg BP Diastolic Sitting 74 mmHg BMI (Body Mass Index) 27.0 kg/m2 Results Test Date Test Result H/L Range Note Urine Microalbumin Random 07/23/2018 Ur Microalbumin (mg/L) 61.8 1 Urine Creatinine 188.65 mg/dL 1 Urine Microalbumin/Creatinine 32.7 High <31 1 Drug Abuse 20 Urine 07/23/2018 Urine Amphetamine Negative ng/mL 1, 2 Urine Barbiturates Negative ng/mL 1, 3 Urine Benzodiazepines Negative ng/mL 1, 4 Urine Cocaine Negative ng/mL 1, 5 Urine Phencyclidine Negative ng/mL Cutoff: 25 1 Urine Tetrahydrocannabinol Negative ng/mL Cutoff: 50 1, 6 Creatinine, Urine 170.6 mg/dL 1 Specific [place] 1.017 1 pH 5.5 1 Oxidants Negative 1, 7 Adulterants Comment Normal 1 Codeine, Ur Not Detected ng/mL Cutoff: 25 1, 8 Fynunqz-8-vxpk-glucuronide, Ur Not Detected ng/mL 1, 9 Morphine, Ur Not Detected ng/mL Cutoff: 25 1, 10 Qlihmosi-5-qrhi-glucuronide, U Not Detected ng/mL 1, 11 6-monoacetylmorphine, Ur Not Detected ng/mL Cutoff: 25 1, 12 Hydrocodone, Ur Present ng/mL Cutoff: 25 1, 13 Norhydrocodone, Ur Present ng/mL Cutoff: 25 1, 14 Dihydrocodeine, Ur Present ng/mL Cutoff: 25 1, 15 Hydromorphone, Ur Not Detected ng/mL Cutoff: 25 1, 16 Bkeqxguzvanrf7ubzchbvhbdgkidr Present ng/mL 1, 17 Oxycodone, Ur Not Detected ng/mL Cutoff: 25 1, 18 Noroxycodone, Ur Not Detected ng/mL Cutoff: 25 1, 19 Oxymorphone, Ur Not Detected ng/mL Cutoff: 25 1, 20 Xmudicuolfm-8-vpln-glucuronide Not Detected ng/mL 1, 21 Noroxymorphone, Ur Not Detected ng/mL Cutoff: 25 1, 22 Fentanyl, Ur Not Detected ng/mL Cutoff: 2 1, 23 Norfentanyl, Ur Not Detected ng/mL Cutoff: 2 1, 24 Meperidine, Ur Not Detected ng/mL Cutoff: 25 1, 25 Normeperidine, Ur Not Detected ng/mL Cutoff: 25 1, 26 Naloxone, Ur Not Detected ng/mL Cutoff: 25 1, 27 Pjgdkirz-2-blyb-glucuronide, U Not Detected ng/mL 1, 28 Methadone, Ur Not Detected ng/mL Cutoff: 25 1, 29 Eddp, Ur Not Detected ng/mL Cutoff: 25 1, 30 Propoxyphene, Ur Not Detected ng/mL Cutoff: 25 1, 31 Norpropoxyphene, Ur Not Detected ng/mL Cutoff: 25 1, 32 Tramadol, Ur Not Detected ng/mL Cutoff: 25 1, 33 O-desmethyltramadol, Ur Not Detected ng/mL Cutoff: 25 1, 34 Tapentadol, Ur Not Detected ng/mL Cutoff: 25 1, 35 N-desmethyltapentadol, Ur Not Detected ng/mL Cutoff: 50 1, 36 Igeecntijf-dyav-rwkjtvavqot, U Not Detected ng/mL 1, 37 Buprenorphine, Ur Not Detected ng/mL Cutoff: 5 1, 38 Norbuprenorphine, Ur Not Detected ng/mL Cutoff: 5 1, 39 Norbuprenorphine glucuronide Not Detected ng/mL Cutoff: 20 1, 40 Opioid Interpretation See Comment 1, 41 Laboratory test finding 07/23/2018 Hemoglobin A1c 7.0 5-7 Laboratory test finding 04/07/2018 Hemoglobin A1c 6.9 5-7 Comp Metabolic Panel 12/23/2017 Sodium 137 mmol/L 133-145 42 Potassium 4.3 mmol/L 3.5-5.0 42 Chloride 105 mmol/L 101-111 42 Co2 Carbon Dioxide 24 mmol/L 22-32 42 Anion Gap 8 mmol/L 2-11 42 Glucose 137 mg/dL High 70-100 42 Blood Urea Nitrogen 16 mg/dL 6-24 42 Creatinine 0.95 mg/dL 0.67-1.17 42 BUN/Creatinine Ratio 16.8 8-20 42 Calcium 9.3 mg/dL 8.6-10.3 42 Total Protein 6.3 g/dL Low 6.4-8.9 42 Albumin 4.1 g/dL 3.2-5.2 42 Globulin 2.2 g/dL 2-4 42 Albumin/Globulin Ratio 1.9 1-3 42 Total Bilirubin 0.50 mg/dL 0.2-1.0 42 Alkaline Phosphatase 93 U/L 34-104 42 Alt 26 U/L 7-52 42 Ast 18 U/L 13-39 42 Egfr Non- 84.3 >60 42 Egfr 108.4 >60 42, 43 Laboratory test 12/23/2017 Hemoglobin A1c (Glyco 7.1 % High 4.0-5.6 42, 44 finding HGB) Lipid Profile 12/23/2017 Triglycerides 191 mg/dL 42, 45 (Trig/Chol/HDL) Cholesterol 154 mg/dL 42, 46 HDL Cholesterol 34.9 mg/dL 42, 47 LDL Cholesterol 81 mg/dL 42, 48 Laboratory test finding 09/23/2017 Hemoglobin A1c 7.3 High 5-7 Urinalysis Profile 09/07/2017 Urine Color Yellow Urine Appearance Clear Urine Specific [place] 1.028 1.010-1.030 Urine pH 5.0 5-9 Urine Urobilinogen Negative Negative Urine Ketones Negative Negative Urine Protein Negative Negative Urine Leukocytes Negative Negative Urine Blood Negative Negative Urine Nitrite Negative Negative Urine Bilirubin Negative Negative Urine Glucose Negative Negative Urine Drug SCR ED & 09/07/2017 Amphetamine Ur Screen None Detected None Detect Pain Clinic Barbiturates Urine Screen None Detected None Detect Benzodiazepine Urine Screen None Detected None Detect Urine Cannabinoids Screen None Detected None Detect Urine Cocaine Screen Presumptive Posi <SEE NOTE> None Detect 49 Urine Opiates Screen None Detected None Detect Urine Phencyclidine Screen None Detected None Detect 50 Laboratory test finding 09/07/2017 Troponin-I (TnI) 0.00 ng/mL <0.04 Alcohol < 10 mg/dL <10 Laboratory test finding 09/07/2017 Lactic Acid 1.4 mmol/L 0.5-2.0 51 CBC Auto Diff 09/07/2017 White Blood Count 8.4 10^3/uL 3.5-10.8 Red Blood Count 5.51 10^6/uL High 4.0-5.4 Hemoglobin 16.2 g/dL 14.0-18.0 Hematocrit 47 % 42-52 Mean Corpuscular Volume 86 fL 80-94 Mean Corpuscular Hemoglobin 29 pg 27-31 Mean Corpuscular HGB Conc 34 g/dL 31-36 Red Cell Distribution Width 14 % 10.5-15 Platelet Count 261 10^3/uL 150-450 Mean Platelet Volume 8 um3 7.4-10.4 Abs Neutrophils 4.6 10^3/uL 1.5-7.7 Abs Lymphocytes 2.9 10^3/uL 1.0-4.8 Abs Monocytes 0.7 10^3/uL 0-0.8 Abs Eosinophils 0.2 10^3/uL 0-0.6 Abs Basophils 0 10^3/uL 0-0.2 Abs Nucleated RBC 0.01 10^3/uL Granulocyte % 53.9 % 38-83 Lymphocyte % 34.8 % 25-47 Monocyte % 8.4 % 1-9 Eosinophil % 2.5 % 0-6 Basophil % 0.4 % 0-2 Nucleated Red Blood Cells % 0.1 Inr/Protime 09/07/2017 Inr 0.88 Low 0.89-1.11 Comp Metabolic Panel 09/07/2017 Sodium 138 mmol/L 133-145 Potassium 3.9 mmol/L 3.5-5.0 Chloride 109 mmol/L 101-111 Co2 Carbon Dioxide 23 mmol/L 22-32 Anion Gap 6 mmol/L 2-11 Glucose 141 mg/dL High 70-100 Blood Urea Nitrogen 18 mg/dL 6-24 Creatinine 1.05 mg/dL 0.67-1.17 BUN/Creatinine Ratio 17.1 8-20 Calcium 8.9 mg/dL 8.6-10.3 Total Protein 6.7 g/dL 6.4-8.9 Albumin 4.2 g/dL 3.2-5.2 Globulin 2.5 g/dL 2-4 Albumin/Globulin Ratio 1.7 1-3 Total Bilirubin 0.30 mg/dL 0.2-1.0 Alkaline Phosphatase 87 U/L 34-104 Alt 22 U/L 7-52 Ast 15 U/L 13-39 Egfr Non- 75.4 >60 Egfr 97.0 >60 52 Laboratory test 09/07/2017 Partial Thrombo Time PTT 32.3 seconds 26.0- 36.3 finding Lipid Profile 06/26/2017 Triglycerides 100 mg/dL 53 (Trig/Chol/HDL) Cholesterol 119 mg/dL 54 HDL Cholesterol 36.4 mg/dL 55 LDL Cholesterol 63 mg/dL 56 Laboratory test finding 06/26/2017 Ast (Sgot) 12 U/L Low 13-39 57 Alt 16 U/L 7-52 58 Basic Metabolic Panel 06/26/2017 Sodium 139 mmol/L 133-145 Potassium 4.1 mmol/L 3.5-5.0 Chloride 110 mmol/L 101-111 Co2 Carbon Dioxide 24 mmol/L 22-32 Anion Gap 5 mmol/L 2-11 Glucose 107 mg/dL High 70-100 Blood Urea Nitrogen 13 mg/dL 6-24 Creatinine 0.90 mg/dL 0.67-1.17 BUN/Creatinine Ratio 14.4 8-20 Calcium 9.2 mg/dL 8.6-10.3 Egfr Non- 90.1 >60 Egfr 115.8 >60 59 Laboratory test 06/26/2017 Hemoglobin A1c 6.5 % High Less than 6.0 60 finding (Glyco HGB) Urine Microalbumin 06/26/2017 Urine Creatinine 190.10 mg/dL Random Ur Microalbumin (mg/L) 36.4 mg/L Urine Microalbumin/Creatinine 19.1 ug/mg <31 Laboratory test finding 04/07/2017 Point of Care Glucose 135 mg/dL High 74 -106 61 Laboratory test finding 03/19/2017 Hemoglobin A1c 6.9 5-7 Lipid Profile 03/11/2017 Triglycerides 132 mg/dL 62 (Trig/Chol/HDL) Cholesterol 193 mg/dL 63 HDL Cholesterol 34.2 mg/dL 64 LDL Cholesterol 132 mg/dL 65 Laboratory test finding 10/23/2016 Hemoglobin A1c 7.5 High 5-7 Basic Metabolic Panel 05/15/2016 Sodium 138 mmol/L 133-145 Potassium 4.2 mmol/L 3.5-5.0 Chloride 109 mmol/L 101-111 Co2 Carbon Dioxide 21 mmol/L Low 22-32 Anion Gap 8 mmol/L 2-11 Glucose 163 mg/dL High 70-100 Blood Urea Nitrogen 14 mg/dL 6-24 Creatinine 1.03 mg/dL 0.67-1.17 BUN/Creatinine Ratio 13.6 8-20 Calcium 9.0 mg/dL 8.6-10.3 Egfr Non- 77.4 >60 Egfr 99.6 >60 66 Laboratory test finding 05/15/2016 Vitamin D Total 25(Oh) 11.3 ng/mL Low 30-50 Urine Microalbumin Random 04/17/2016 Urine Creatinine 204.06 mg/dL Ur Microalbumin (mg/L) 16.2 mg/L Urine Microalbumin/Creatinine 7.9 ug/mg <31 Laboratory test finding 04/17/2016 Hemoglobin A1c 6.9 5-7 Lipid Profile (Trig/Chol/HDL) 02/14/2016 Triglycerides 247 mg/dL 67 Cholesterol 190 mg/dL 68 HDL Cholesterol 28.3 mg/dL 69 LDL Cholesterol 112 mg/dL 70 Laboratory test finding 10/28/2015 Hemoglobin A1c 6.8 5-7 Laboratory test finding 08/22/2015 Potassium Redraw 3.7 mmol/L 3.5-5.0 Magnesium 1.8 mg/dL Low 1.9-2.7 Ast Redraw 16 U/L 13-39 CBC Auto Diff 08/22/2015 White Blood Count 11.7 10^3/uL High 4.8-10.8 Red Blood Count 6.08 10^6/uL High 4.0-5.4 Hemoglobin 17.3 g/dL 14.0-18.0 Hematocrit 54 % High 42-52 Mean Corpuscular Volume 89 fL 80-94 Mean Corpuscular Hemoglobin 28 pg 27-31 Mean Corpuscular HGB Conc 32 g/dL 31-36 Red Cell Distribution Width 14 % 10.5-15 Platelet Count 300 10^3/uL 150-450 Mean Platelet Volume 8 um3 7.4-10.4 Abs Neutrophils 8.3 10^3/uL High 1.5-7.7 Abs Lymphocytes 2.4 10^3/uL 1.0-4.8 Abs Monocytes 0.8 10^3/uL 0-0.8 Abs Eosinophils 0.2 10^3/uL 0-0.6 Abs Basophils 0.1 10^3/uL 0-0.2 Abs Nucleated RBC 0.02 10^3/uL Granulocyte % 70.5 % 38-83 Lymphocyte % 20.1 % Low 25-47 Monocyte % 7.0 % 1-9 Eosinophil % 1.7 % 0-6 Basophil % 0.7 % 0-2 Nucleated Red Blood Cells % 0.1 Laboratory test finding 08/22/2015 Lactic Acid 2.0 mmol/L 0.5-2.2 Comp Metabolic Panel 08/22/2015 Sodium 136 mmol/L 133-145 Chloride 106 mmol/L 101-111 Co2 Carbon Dioxide 21 mmol/L Low 22-32 Glucose 127 mg/dL High 70-100 Blood Urea Nitrogen 12 mg/dL 6-24 Creatinine 1.16 mg/dL 0.67-1.17 BUN/Creatinine Ratio 10.3 8-20 Calcium 9.5 mg/dL 8.6-10.3 Total Protein 7.0 g/dL 6.4-8.9 Albumin 4.2 g/dL 3.2-5.2 Globulin 2.8 g/dL 2-4 Albumin/Globulin Ratio 1.5 1-3 Total Bilirubin 0.40 mg/dL 0.2-1.0 Alkaline Phosphatase 93 U/L 34-104 Alt 28 U/L 7-52 Egfr Non- 67.8 >60 Egfr 87.2 >60 71 Potassium TNP mmol/L 3.5-5.0 72 Anion Gap TNP mmol/L 2-11 Ast TNP U/L 13-39 73 Laboratory test finding 08/22/2015 Lipase 29 U/L 11.0-82.0 C Reactive Protein 9.27 mg/L High < 5.00 74 Magnesium TNP mg/dL 1.9-2.7 75 Urinalysis Profile 08/22/2015 Urine Color Yellow Urine Appearance Cloudy Urine Specific [place] 1.015 1.010-1.030 Urine pH 5.0 5-9 Urine Urobilinogen Negative Negative Urine Ketones Trace Negative Urine Protein Negative Negative Urine Leukocytes Negative Negative Urine Blood 3+ Negative Urine Nitrite Negative Negative Urine Bilirubin Negative Negative Urine Glucose Negative Negative Urine White Blood Cell Trace(0-5/hpf) Absent Urine Red Blood Cell 3+(>10/hpf) Absent Urine Bacteria Absent Absent Urine Squamous Epithelial Cell Present Absent Laboratory test finding 07/12/2015 Hemoglobin A1c 7.7 High 5-7 Comp Metabolic Panel 06/23/2015 Sodium 139 mmol/L 133-145 Potassium 3.9 mmol/L 3.5-5.0 Chloride 107 mmol/L 101-111 Co2 Carbon Dioxide 23 mmol/L 22-32 Anion Gap 9 mmol/L 2-11 Glucose 152 mg/dL High 70-100 Blood Urea Nitrogen 10 mg/dL 6-24 Creatinine 1.04 mg/dL 0.67-1.17 BUN/Creatinine Ratio 9.6 8-20 Calcium 9.0 mg/dL 8.6-10.3 Total Protein 6.2 g/dL Low 6.4-8.9 Albumin 4.1 g/dL 3.2-5.2 Globulin 2.1 g/dL 2-4 Albumin/Globulin Ratio 2.0 1-3 Total Bilirubin 0.50 mg/dL 0.2-1.0 Alkaline Phosphatase 87 U/L 34-104 Alt 27 U/L 7-52 Ast 17 U/L 13-39 Egfr Non- 76.9 >60 Egfr 98.9 >60 76 CBC Auto Diff 06/23/2015 White Blood Count 10.0 10^3/uL 4.8-10.8 Red Blood Count 5.70 10^6/uL High 4.0-5.4 Hemoglobin 16.4 g/dL 14.0-18.0 Hematocrit 51 % 42-52 Mean Corpuscular Volume 89 fL 80-94 Mean Corpuscular Hemoglobin 29 pg 27-31 Mean Corpuscular HGB Conc 33 g/dL 31-36 Red Cell Distribution Width 14 % 10.5-15 Platelet Count 247 10^3/uL 150-450 Mean Platelet Volume 8 um3 7.4-10.4 Abs Neutrophils 6.4 10^3/uL 1.5-7.7 Abs Lymphocytes 2.6 10^3/uL 1.0-4.8 Abs Monocytes 0.6 10^3/uL 0-0.8 Abs Eosinophils 0.3 10^3/uL 0-0.6 Abs Basophils 0.1 10^3/uL 0-0.2 Abs Nucleated RBC 0.01 10^3/uL Granulocyte % 63.7 % 38-83 Lymphocyte % 26.3 % 25-47 Monocyte % 6.4 % 1-9 Eosinophil % 2.8 % 0-6 Basophil % 0.8 % 0-2 Nucleated Red Blood Cells % 0.2 Laboratory test finding 06/23/2015 Vitamin B12 430 pg/mL 180-914 77 Vitamin D Total 25(Oh) 13.4 ng/mL Low 30-50 CBC Auto Diff 03/23/2015 White Blood Count 13.0 10^3/uL High 4.8-10.8 Red Blood Count 5.71 10^6/uL High 4.0-5.4 Hemoglobin 16.5 g/dL 14.0-18.0 Hematocrit 51 % 42-52 Mean Corpuscular Volume 89 fL 80-94 Mean Corpuscular Hemoglobin 29 pg 27-31 Mean Corpuscular HGB Conc 32 g/dL 31-36 Red Cell Distribution Width 13 % 10.5-15 Platelet Count 261 10^3/uL 150-450 Mean Platelet Volume 8 um3 7.4-10.4 Abs Neutrophils 9.8 10^3/uL High 1.5-7.7 Abs Lymphocytes 2.0 10^3/uL 1.0-4.8 Abs Monocytes 0.8 10^3/uL 0-0.8 Abs Eosinophils 0.2 10^3/uL 0-0.6 Abs Basophils 0.1 10^3/uL 0-0.2 Abs Nucleated RBC 0 10^3/uL Granulocyte % 75.9 % 38-83 Lymphocyte % 15.5 % Low 25-47 Monocyte % 6.4 % 1-9 Eosinophil % 1.4 % 0-6 Basophil % 0.8 % 0-2 Nucleated Red Blood Cells % 0 Comp Metabolic Panel 03/23/2015 Sodium 138 mmol/L 133-145 Potassium 3.8 mmol/L 3.5-5.0 Chloride 108 mmol/L 101-111 Co2 Carbon Dioxide 22 mmol/L 22-32 Anion Gap 8 mmol/L 2-11 Glucose 245 mg/dL High 70-100 Blood Urea Nitrogen 13 mg/dL 6-24 Creatinine 1.19 mg/dL High 0.67-1.17 BUN/Creatinine Ratio 10.9 8-20 Calcium 9.4 mg/dL 8.6-10.3 Total Protein 6.5 g/dL 6.4-8.9 Albumin 4.2 g/dL 3.2-5.2 Globulin 2.3 g/dL 2-4 Albumin/Globulin Ratio 1.8 1-3 Total Bilirubin 0.30 mg/dL 0.2-1.0 Alkaline Phosphatase 105 U/L High 34-104 Alt 27 U/L 7-52 Ast 16 U/L 13-39 Egfr Non- 65.8 >60 Egfr 84.6 >60 78 Laboratory test finding 03/23/2015 Magnesium 2.0 mg/dL 1.9-2.7 Troponin-I (TnI) 0.00 ng/mL <0.03 79 TSH (Thyroid Stim Horm) 1.42 ?IU/mL 0.34-5.60 Lactic Acid 2.5 mmol/L High 0.5-2.2 80 Urine Microalbumin Random 02/24/2015 Ur Microalbumin (mg/L) 69.0 mg/L Urine Creatinine 255.81 mg/dL Urine Microalbumin/Creatinine 26.9 ug/mg <31 Laboratory test finding 02/24/2015 Hemoglobin A1c 8.0 High 5-7 Laboratory test finding 02/11/2015 Vitamin B12 450 pg/mL 180-914 81, 82 Methylmalonic Acid 0.16 nmol/mL <=0.40 81, 83 Comp Metabolic Panel 02/11/2015 Sodium 136 mmol/L 133-145 81 Potassium 4.2 mmol/L 3.5-5.0 81 Chloride 105 mmol/L 101-111 81 Co2 Carbon Dioxide 23 mmol/L 22-32 81 Anion Gap 8 mmol/L 2-11 81 Glucose 223 mg/dL High 70-100 81 Blood Urea Nitrogen 13 mg/dL 6-24 81 Creatinine 0.93 mg/dL 0.67-1.17 81 BUN/Creatinine Ratio 14.0 8-20 81 Calcium 9.0 mg/dL 8.6-10.3 81 Total Protein 6.4 g/dL 6.4-8.9 81 Albumin 4.2 g/dL 3.2-5.2 81 Globulin 2.2 g/dL 2-4 81 Albumin/Globulin Ratio 1.9 1-3 81 Total Bilirubin 0.40 mg/dL 0.2-1.0 81 Alkaline Phosphatase 89 U/L 34-104 81 Alt 25 U/L 7-52 81 Ast 17 U/L 13-39 81 Egfr Non- 87.5 >60 81 Egfr 112.5 >60 81, 84 Lipid Profile (Trig/Chol/HDL) 02/11/2015 Triglycerides 262 mg/dL 81, 85 Cholesterol 206 mg/dL 81, 86 HDL Cholesterol 30.6 mg/dL 81, 87 LDL Cholesterol 123 mg/dL 81, 88 Laboratory test 02/11/2015 TSH (Thyroid 2.11 IU/mL 0.34-5.60 81, 89 finding Stimulating Horm) Hepatitis C Antibody Nonreactive Nonreactive 81, 90 Hepatitis B Surface Antigen Nonreactive Nonreactive 81, 91 Comp Metabolic Panel 09/03/2014 Sodium 141 mmol/L 133-145 Potassium 3.9 mmol/L 3.5-5.0 92 Chloride 109 mmol/L 101-111 Co2 Carbon Dioxide 25 mmol/L 22-32 Anion Gap 7 mmol/L 2-11 Glucose 93 mg/dL 70-100 Blood Urea Nitrogen 9 mg/dL 6-24 Creatinine 1.00 mg/dL 0.67-1.17 BUN/Creatinine Ratio 9.0 8-20 Calcium 9.1 mg/dL 8.6-10.3 Total Protein 6.5 g/dL 6.4-8.9 Albumin 4.1 g/dL 3.2-5.2 Globulin 2.4 g/dL 2-4 Albumin/Globulin Ratio 1.7 1-3 Total Bilirubin 0.40 mg/dL 0.2-1.0 Alkaline Phosphatase 105 U/L High 34-104 Alt 45 U/L 7-52 Ast 27 U/L 13-39 Egfr Non- 80.8 >60 Egfr 103.9 >60 93 CBC Auto Diff 09/03/2014 White Blood Count 7.1 10^3/uL 4.8-10.8 Red Blood Count 5.73 10^6/uL High 4.0-5.4 Hemoglobin 16.8 g/dL 14.0-18.0 Hematocrit 51 % 42-52 Mean Corpuscular Volume 89 fL 80-94 Mean Corpuscular Hemoglobin 29 pg 27-31 Mean Corpuscular HGB Conc 33 g/dL 31-36 Red Cell Distribution Width 14 % 10.5-15 Platelet Count 278 10^3/uL 150-450 Mean Platelet Volume 8 um3 7.4-10.4 Abs Neutrophils 4.2 10^3/uL 1.5-7.7 Abs Lymphocytes 2.1 10^3/uL 1.0-4.8 Abs Monocytes 0.6 10^3/uL 0-0.8 Abs Eosinophils 0.2 10^3/uL 0-0.6 Abs Basophils 0 10^3/uL 0-0.2 Abs Nucleated RBC 0 10^3/uL Granulocyte % 58.8 % 38-83 Lymphocyte % 29.0 % 25-47 Monocyte % 9.0 % 1-9 Eosinophil % 2.8 % 0-6 Basophil % 0.4 % 0-2 Nucleated Red Blood Cells % 0 Comp Metabolic Panel 08/11/2014 Sodium 136 mmol/L 133-145 Potassium 4.1 mmol/L 3.7-5.6 Chloride 107 mmol/L 101-111 Co2 Carbon Dioxide 22 mmol/L 22-32 Anion Gap 7 mmol/L 2-11 Glucose 124 mg/dL High 70-100 Blood Urea Nitrogen 17 mg/dL 6-24 Creatinine 1.01 mg/dL 0.67-1.17 BUN/Creatinine Ratio 16.8 8-20 Calcium 9.2 mg/dL 8.6-10.3 Total Protein 6.4 g/dL 6.4-8.9 Albumin 4.2 g/dL 3.2-5.2 Globulin 2.2 g/dL 2-4 Albumin/Globulin Ratio 1.9 1-3 Total Bilirubin 0.40 mg/dL 0.2-1.0 Alkaline Phosphatase 88 U/L 34-104 Alt 23 U/L 7-52 Ast 18 U/L 13-39 Egfr Non- 79.9 >60 Egfr 102.7 >60 94 Laboratory test finding 08/11/2014 TSH (Thyroid Stimulating 3.84 IU/mL 0.34-5.60 Horm) Vitamin D, 25 Hydroxy 08/11/2014 25-Hydroxy Vitamin D2 7.4 ng/mL 25-Hydroxy Vitamin D3 15 ng/mL 25-Hydroxy Vitamin D Total 22 ng/mL 95 Laboratory test finding 08/11/2014 Vitamin B12 > 1450 pg/mL High 180-914 96 Drug Abuse 20 Urine 05/04/2014 Urine Amphetamine Negative ng/mL 97 Urine Barbiturates Negative ng/mL 98 Urine Benzodiazepines Negative ng/mL 99 Urine Cocaine Negative ng/mL 100 Urine Methadone Negative ng/mL 101 Urine Opiates Negative ng/mL 102 Urine Phencyclidine Negative ng/mL Cutoff: 25 Urine Propoxyphene Negative ng/mL 103 Urine Tetrahydrocannabinol Negative ng/mL Cutoff: 20 104 Creatinine 151.2 mg/dL Specific [place] 1.024 pH 5.8 Oxidants Negative 105 Urine Opiates Screen Negative 106 Urine Codeine Confirmation Negative ng/mL 107 Urine Hydrocodone Confirm Negative ng/mL 108 Urine Hydromorphone Confirm Negative ng/mL 109 Urine Morphine Confirm Negative ng/mL 110 Urine Oxycodone Confirm Negative ng/mL 111 Urine Opiates Interpretation Negative. 112 Vitamin D, 25 Hydroxy 04/29/2014 25-Hydroxy Vitamin D2 25 ng/mL 25-Hydroxy Vitamin D3 8.1 ng/mL 25-Hydroxy Vitamin D Total 33 ng/mL 113 Laboratory test 04/29/2014 Hemoglobin A1c 6.0 % Less than 6.0 114 finding Laboratory test 03/05/2014 Glucose 88 mg/dL 70-100 finding Vitamin D, 25 Hydroxy 03/05/2014 25-Hydroxy Vitamin D2 <4.0 ng/mL 25-Hydroxy Vitamin D3 23 ng/mL 25-Hydroxy Vitamin D Total 23 ng/mL 115 Urine Drug SCR ED & 01/22/2014 Amphetamine Ur Screen None Detected None Detect Pain [facility] Barbiturates Urine Screen None Detected None Detect Benzodiazepine Urine Screen None Detected None Detect Urine Cannabinoids Screen None Detected None Detect Urine Cocaine Screen Presumptive Posi <SEE NOTE> None Detect 116 Urine Opiates Screen None Detected None Detect Urine Phencyclidine Screen None Detected None Detect 117 CBC Auto Diff 01/22/2014 White Blood Count 8.7 10^3/uL 4.8-10.8 Red Blood Count 5.26 10^6/uL 4.0-5.4 Hemoglobin 15.6 g/dL 14.0-18.0 Hematocrit 46 % 42-52 Mean Corpuscular Volume 88 fL 80-94 Mean Corpuscular Hemoglobin 30 pg 27-31 Mean Corpuscular HGB Conc 34 g/dL 31-36 Red Cell Distribution Width 13 % 10.5-15 Platelet Count 248 10^3/uL 150-450 Mean Platelet Volume 8 um3 7.4-10.4 Abs Neutrophils 6.3 10^3/uL 1.5-7.7 Abs Lymphocytes 1.8 10^3/uL 1.0-4.8 Abs Monocytes 0.5 10^3/uL 0-0.8 Abs Eosinophils 0.1 10^3/uL 0-0.6 Abs Basophils 0.1 10^3/uL 0-0.2 Abs Nucleated RBC 0 10^3/uL Granulocyte % 71.7 % 38-83 Lymphocyte % 21.0 % Low 25-47 Monocyte % 5.5 % 1-9 Eosinophil % 1.0 % 0-6 Basophil % 0.8 % 0-2 Nucleated Red Blood Cells % 0 Comp Metabolic Panel 01/22/2014 Sodium 141 mmol/L 133-145 Potassium TNP mmol/L 3.7-5.6 118 Chloride 109 mmol/L 101-111 Co2 Carbon Dioxide 23 mmol/L 22-32 Glucose 144 mg/dL High 70-100 Blood Urea Nitrogen 12 mg/dL 6-24 Creatinine 0.92 mg/dL 0.67-1.17 BUN/Creatinine Ratio 13.0 8-20 Calcium 8.9 mg/dL 8.6-10.3 Total Protein 6.4 g/dL 6.4-8.9 Albumin 4.4 g/dL 3.2-5.2 Globulin 2.0 g/dL 2-4 Albumin/Globulin Ratio 2.2 1-3 Total Bilirubin 0.40 mg/dL 0.2-1.0 Alkaline Phosphatase 86 U/L 34-104 Alt 19 U/L 7-52 Ast TNP U/L 13-39 119 Egfr Non- 89.0 >60 Egfr 114.4 >60 120 Laboratory test finding 01/22/2014 Magnesium 1.8 mg/dL Low 1.9-2.7 Acetaminophen < 15 g/mL 121 Alcohol < 10 mg/dL <10 Salicylate < 2.50 mg/dL <30 Laboratory test finding 01/22/2014 Potassium 3.9 mmol/L 3.7-5.6 Laboratory test finding 11/10/2013 Vitamin B12 584 pg/mL 180-914 Hemoglobin A1c 5.8 % Less than 6.0 122 Comp Metabolic Panel 11/10/2013 Sodium 137 mmol/L 133-145 Potassium 4.3 mmol/L 3.5-5.0 Chloride 108 mmol/L 101-111 Co2 Carbon Dioxide 22.0 mmol/L 22-32 Anion Gap 7.0 mmol/L 2-11 Glucose 111 mg/dL High 70-100 Blood Urea Nitrogen 9 mg/dL 6-24 Creatinine 1.20 mg/dL 0.50-1.40 BUN/Creatinine Ratio 7.5 Low 8-20 Calcium 8.8 mg/dL 8.1-9.9 Total Protein 6.3 g/dL 6.2-8.1 Albumin 3.6 g/dL 3.6-5.4 Globulin 2.7 g/dL 2-4 Albumin/Globulin Ratio 1.3 1-3 Total Bilirubin 0.5 mg/dL 0.4-1.5 Alkaline Phosphatase 87 U/L 30-110 Alt 23 U/L 14-54 Ast 21 U/L 12-42 Egfr Non- 65.8 >60 Egfr 84.6 >60 123 Inr/Protime 11/10/2013 Inr 0.90 0.85-1.06 CBC Auto Diff 11/10/2013 White Blood Count 6.4 10^3/uL 4.8-10.8 Red Blood Count 5.31 10^6/uL 4.0-5.4 Hemoglobin 15.6 g/dL 14.0-18.0 Hematocrit 47 % 42-52 Mean Corpuscular Volume 89 fL 80-94 Mean Corpuscular Hemoglobin 29 pg 27-31 Mean Corpuscular HGB Conc 33 g/dL 31-36 Red Cell Distribution Width 13 % 10.5-15 Platelet Count 258 10^3/uL 150-450 Mean Platelet Volume 8 um3 7.4-10.4 Abs Neutrophils 3.3 10^3/uL 1.5-7.7 Abs Lymphocytes 2.4 10^3/uL 1.0-4.8 Abs Monocytes 0.4 10^3/uL 0-0.8 Abs Eosinophils 0.3 10^3/uL 0-0.6 Abs Basophils 0.1 10^3/uL 0-0.2 Abs Nucleated RBC 0 10^3/uL Granulocyte % 50.6 % 38-83 Lymphocyte % 37.2 % 25-47 Monocyte % 6.9 % 1-9 Eosinophil % 4.4 % 0-6 Basophil % 0.9 % 0-2 Nucleated Red Blood Cells % 0 CBC Auto Diff 06/03/2013 White Blood Count 7.0 10^3/uL 4.8-10.8 Red Blood Count 5.22 10^6/uL 4.0-5.4 Hemoglobin 16.2 g/dL 14.0-18.0 Hematocrit 49 % 42-52 Mean Corpuscular Volume 93 fL 80-94 Mean Corpuscular Hemoglobin 31 pg 27-31 Mean Corpuscular HGB Conc 34 g/dL 31-36 Red Cell Distribution Width 13 % 10.5-15 Platelet Count 262 10^3/uL 150-450 Mean Platelet Volume 9 um3 7.4-10.4 Abs Neutrophils 3.7 10^3/uL 1.5-7.7 Abs Lymphocytes 2.4 10^3/uL 1.0-4.8 Abs Monocytes 0.5 10^3/uL 0-0.8 Abs Eosinophils 0.3 10^3/uL 0-0.6 Abs Basophils 0 10^3/uL 0-0.2 Abs Nucleated RBC 0.07 10^3/uL Granulocyte % 52.9 % 38-83 Lymphocyte % 34.7 % 25-47 Monocyte % 7.6 % 1-9 Eosinophil % 4.2 % 0-6 Basophil % 0.6 % 0-2 Nucleated Red Blood Cells % 1.0 Lipid Profile (Trig/Chol/HDL) 06/03/2013 Triglycerides 214 mg/dL High 40- 200 Cholesterol 186 mg/dL Less than 200 HDL Cholesterol 34 mg/dL Low 40-60 124 Cholesterol/HDL Ratio 5.5 Average High 1-4.44 LDL Cholesterol 109.2 High Less Than 100 125 Comp Metabolic Panel 06/03/2013 Sodium 143 mmol/L 133-145 Potassium 4.4 mmol/L 3.5-5.0 Chloride 111 mmol/L 101-111 Co2 Carbon Dioxide 24.0 mmol/L 22-32 Anion Gap 8.0 mmol/L 2-11 Glucose 87 mg/dL 70-100 Blood Urea Nitrogen 18 mg/dL 6-24 Creatinine 1.40 mg/dL 0.50-1.40 BUN/Creatinine Ratio 12.9 8-20 Calcium 8.8 mg/dL 8.1-9.9 Total Protein 5.3 g/dL Low 6.2-8.1 Albumin 3.7 g/dL 3.6-5.4 Globulin 1.6 g/dL Low 2-4 Albumin/Globulin Ratio 2.3 1-3 Total Bilirubin 0.4 mg/dL 0.4-1.5 Alkaline Phosphatase 88 U/L 30-110 Alt 16 U/L 14-54 Ast 12 U/L 12-42 Egfr Non- 55.1 >60 Egfr 70.8 >60 126 Vitamin D, 25 Hydroxy 06/03/2013 25-Hydroxy Vitamin D2 <4.0 ng/mL 25-Hydroxy Vitamin D3 11 ng/mL 25-Hydroxy Vitamin D Total 11 ng/mL 127 Laboratory test finding 06/03/2013 TSH (Thyroid 2.27 miu/mL 0.34-5.60 128 Stimulating Horm) Lyme Disease Serology Negative Negative 129 Laboratory test finding 06/03/2013 Vitamin B12 614 pg/mL 180-914 1 [id number] 2 REFERENCE VALUE Cutoff: 500 3 REFERENCE VALUE Cutoff: 200 4 REFERENCE VALUE Cutoff: 100 5 REFERENCE VALUE Cutoff: 150 6 ADDITIONAL INFORMATION This report is intended for use in clinical monitoring or management of patients. It is not intended for use in employment-related testing. 7 REFERENCE VALUE Cutoff: 200 mg/L 8 Tylenol 3 9 Metabolite of codeine REFERENCE VALUE Cutoff: 100 10 Penny Welch, Contin; Also a minor metabolite (10%) of codeine and can be seen in low concentrations (<2,000 ng/mL) with poppy seed ingestion. 11 Metabolite of morphine REFERENCE VALUE Cutoff: 100 12 Metabolite of heroin 13 Lortab, [place], Vicodin; Also a very minor metabolite of codeine and impurity (<1%) of oxycodone. 14 Metabolite of hydrocodone 15 Metabolite of hydrocodone 16 Dilaudid, Exalgo; Also a metabolite of hydrocodone and a minor (<5%) metabolite of morphine. 17 Metabolite of hydromorphone REFERENCE VALUE Cutoff: 100 18 Endocet, Percocet, Oxycontin 19 Metabolite of oxycodone 20 Numorphan, Opana; Also a metabolite of oxycodone. 21 Metabolite of oxymorphone REFERENCE VALUE Cutoff: 100 22 Metabolite of oxymorphone 23 Actiq, Duragesic, [place] 24 Metabolite of fentanyl 25 Demerol 26 Metabolite of meperidine 27 Narcan 28 Metabolite of naloxone REFERENCE VALUE Cutoff: 100 29 Dolophine 30 Metabolite of methadone 31 Darvon, Darvocet 32 Metabolite of propoxyphene 33 Tradol, Ultram, Ultracet 34 Metabolite of tramadol 35 Nucynta 36 Metabolite of tapentadol 37 Metabolite of tapentadol REFERENCE VALUE Cutoff: 100 38 Buprenex, Suboxone 39 Metabolite of buprenorphine 40 Metabolite of buprenorphine 41 Test detected the presence of hydrocodone, two of its metabolites (norhydrocodone and dihydrocodeine), and [id number] (metabolite of hydromorphone). Suspect use of hydrocodone or hydrocodone and hydromorphone within the past three days. Trace amounts of hydrocodone can also be found as an impurity in hydromorphone. ADDITIONAL INFORMATION This test was developed and its performance characteristics determined by [facility] in a manner consistent with CLIA requirements. This test has not been cleared or approved by the U.S. Food and Drug Administration. Test Performed by: [facility] [address] [place] [address] 42 FASTING 10 HOUR 43 Because ethnic data is not always readily available, this report includes an eGFR for both -Americans and non- Americans. The National Kidney Disease Education Program (NKDEP) does not endorse the use of the MDRD equation for patients that are not between the ages of 18 and 70, are , have extremes of body size, muscle mass, or nutritional status, or are non- or non-. According to the National Kidney Foundation, irrespective of diagnosis, the stage of the disease is based on the level of kidney function: Stage Description GFR(mL/min/1.73 m(2)) 1 Kidney damage with normal or decreased GFR 90 2 Kidney damage with mild decrease in GFR 60-89 3 Moderate decrease in GFR 30-59 4 Severe decrease in GFR 15-29 5 Kidney failure <15 (or dialysis) 44 Therapeutic target for the treatment of diabetes mellitus patients is <7% HBA1C, and in selective patients <6.0%. Please refer to [place] [employer] Association diabetic care guidelines for further information. 45 Desirable: <150 Borderline High: 150-199 High: 200-499 Very High: >500 46 Desirable: <200 Borderline High: 200-239 High: >239 47 Low: <40 Desirable: 40-60 High: >60 48 Desirable: <100 Near Optimal: 100-129 Borderline High: 130-159 High: 160-189 Very High: >189 49 Presumptive Positive Presumptive positive results are unconfirmed. 50 The urine specimen was tested at the listed cutoffs: Drug class test level (ng/mL) Amphetamines 500 Barbiturates 200 Benzodiazepine metabolites 200 Cocaine metabolites 150 Cannabinoids 50 Opiates 300 Pcp 25 Specimen was received without chain of custody. Results should be used for medical purposes only. 51 [facility] Severe Sepsis and Septic Shock Management Bundle Measure requires all lactic acids initially measuring >2.0 mmol/L be repeated. 52 Because ethnic data is not always readily available, this report includes an eGFR for both -Americans and non- Americans. The National Kidney Disease Education Program (NKDEP) does not endorse the use of the MDRD equation for patients that are not between the ages of 18 and 70, are , have extremes of body size, muscle mass, or nutritional status, or are non- or non-. According to the National Kidney Foundation, irrespective of diagnosis, the stage of the disease is based on the level of kidney function: Stage Description GFR(mL/min/1.73 m(2)) 1 Kidney damage with normal or decreased GFR 90 2 Kidney damage with mild decrease in GFR 60-89 3 Moderate decrease in GFR 30-59 4 Severe decrease in GFR 15-29 5 Kidney failure <15 (or dialysis) 53 Desirable <150 Borderline high 150-199 High 200-499 Very High >500 54 Desirable <200 Borderline high 200-239 High >239 55 Low <40 Desirable: 40-60 High: >60 56 Desirable: <100 mg/dL Near Optimal: 100-129 mg/dL Borderline High: 130-159 mg/dL High: 160-189 mg/dL Very High: >189 mg/dL 57 FASTING 58 FASTING 59 Because ethnic data is not always readily available, this report includes an eGFR for both -Americans and non- Americans. The National Kidney Disease Education Program (NKDEP) does not endorse the use of the MDRD equation for patients that are not between the ages of 18 and 70, are , have extremes of body size, muscle mass, or nutritional status, or are non- or non-. According to the National Kidney Foundation, irrespective of diagnosis, the stage of the disease is based on the level of kidney function: Stage Description GFR(mL/min/1.73 m(2)) 1 Kidney damage with normal or decreased GFR 90 2 Kidney damage with mild decrease in GFR 60-89 3 Moderate decrease in GFR 30-59 4 Severe decrease in GFR 15-29 5 Kidney failure <15 (or dialysis) 60 Therapeutic target for the treatment of diabetes Mellitus patients is <7% HBA1C, and in selective patients <6.0%.Please refer to [place] [employer] Diabetic care guidelines for further information. 61 Clinical Services Director: [id number] 62 Desirable <150 Borderline high 150-199 High 200-499 Very High >500 63 Desirable <200 Borderline high 200-239 High >239 64 Low <40 Desirable: 40-60 High: >60 65 Desirable: <100 mg/dL Near Optimal: 100-129 mg/dL Borderline High: 130-159 mg/dL High: 160-189 mg/dL Very High: >189 mg/dL 66 Because ethnic data is not always readily available, this report includes an eGFR for both -Americans and non- Americans. The National Kidney Disease Education Program (NKDEP) does not endorse the use of the MDRD equation for patients that are not between the ages of 18 and 70, are , have extremes of body size, muscle mass, or nutritional status, or are non- or non-. According to the National Kidney Foundation, irrespective of diagnosis, the stage of the disease is based on the level of kidney function: Stage Description GFR(mL/min/1.73 m(2)) 1 Kidney damage with normal or decreased GFR 90 2 Kidney damage with mild decrease in GFR 60-89 3 Moderate decrease in GFR 30-59 4 Severe decrease in GFR 15-29 5 Kidney failure <15 (or dialysis) 67 Desirable <150 Borderline high 150-199 High 200-499 Very High >500 68 Desirable <200 Borderline high 200-239 High >239 69 Low <40 Desirable: 40-60 High: >60 70 Desirable: <100 mg/dL Near Optimal: 100-129 mg/dL Borderline High: 130-159 mg/dL High: 160-189 mg/dL Very High: >189 mg/dL 71 Because ethnic data is not always readily available, this report includes an eGFR for both -Americans and non- Americans. The [employer] Education [employer] ([facility]) does not endorse the use of the MDRD equation for patients that are not between the ages of 18 and 70, are , have extremes of body size, muscle mass, or nutritional status, or are non- or non-. According to the [employer], irrespective of diagnosis, the stage of the disease is based on the level of kidney function: Stage Description GFR(mL/min/1.73 m(2)) 1 Kidney damage with normal or decreased GFR 90 2 Kidney damage with mild decrease in GFR 60-89 3 Moderate decrease in GFR 30-59 4 Severe decrease in GFR 15-29 5 Kidney failure <15 (or dialysis) 72 Unable to report test result due to hemolysis. 73 Unable to report test result due to hemolysis. 74 Acute inflammation: >10.00 75 Unable to report test result due to hemolysis. 76 Because ethnic data is not always readily available, this report includes an eGFR for both -Americans and non- Americans. The National Kidney Disease Education Program (NKDEP) does not endorse the use of the MDRD equation for patients that are not between the ages of 18 and 70, are , have extremes of body size, muscle mass, or nutritional status, or are non- or non-. According to the National Kidney Foundation, irrespective of diagnosis, the stage of the disease is based on the level of kidney function: Stage Description GFR(mL/min/1.73 m(2)) 1 Kidney damage with normal or decreased GFR 90 2 Kidney damage with mild decrease in GFR 60-89 3 Moderate decrease in GFR 30-59 4 Severe decrease in GFR 15-29 5 Kidney failure <15 (or dialysis) 77 Normal Range 180 to 914 Indeterminate Range 145 to 180 Deficient Range <145 78 Because ethnic data is not always readily available, this report includes an eGFR for both -Americans and non- Americans. The National Kidney Disease Education Program (NKDEP) does not endorse the use of the MDRD equation for patients that are not between the ages of 18 and 70, are , have extremes of body size, muscle mass, or nutritional status, or are non- or non-. According to the National Kidney Foundation, irrespective of diagnosis, the stage of the disease is based on the level of kidney function: Stage Description GFR(mL/min/1.73 m(2)) 1 Kidney damage with normal or decreased GFR 90 2 Kidney damage with mild decrease in GFR 60-89 3 Moderate decrease in GFR 30-59 4 Severe decrease in GFR 15-29 5 Kidney failure <15 (or dialysis) 79 Reference Range and Interpretation: TnI (ng/mL) Interpretation Less Than 0.03 ng/mL Not supportive of diagnosis of ID 0.03 - 0.50 ng/mL Indeterminate: suggest serial studies if clinically indicated. Greater than 0.5 ng/mL Consistent with diagnosis of ID 80 Critical Result LACT:2.5 Called to [place] [id number] at: 21:20:14 by:[id number] Read back by:[id number] 81 PT IS FASTING 82 Normal Range 180 to 914 Indeterminate Range 145 to 180 Deficient Range <145 83 Test Performed by: [address] [address] Sociology Teacher: Dean Augustin II, M.D., Ph.D. 84 Because ethnic data is not always readily available, this report includes an eGFR for both -Americans and non- Americans. The National Kidney Disease Education Program (NKDEP) does not endorse the use of the MDRD equation for patients that are not between the ages of 18 and 70, are , have extremes of body size, muscle mass, or nutritional status, or are non- or non-. According to the National Kidney Foundation, irrespective of diagnosis, the stage of the disease is based on the level of kidney function: Stage Description GFR(mL/min/1.73 m(2)) 1 Kidney damage with normal or decreased GFR 90 2 Kidney damage with mild decrease in GFR 60-89 3 Moderate decrease in GFR 30-59 4 Severe decrease in GFR 15-29 5 Kidney failure <15 (or dialysis) 85 Desirable <150 Borderline high 150-199 High 200-499 Very High >500 86 Desirable <200 Borderline high 200-239 High >239 87 Low <40 Desirable: 40-60 High: >60 88 Desirable: <100 mg/dL Near Optimal: 100-129 mg/dL Borderline High: 130-159 mg/dL High: 160-189 mg/dL Very High: >189 mg/dL 89 PT IS FASTING 90 PT IS FASTING 91 PT IS FASTING 92 Potassium reference range changed effective 08/22/14 93 Because ethnic data is not always readily available, this report includes an eGFR for both -Americans and non- Americans. The National Kidney Disease Education Program (NKDEP) does not endorse the use of the MDRD equation for patients that are not between the ages of 18 and 70, are , have extremes of body size, muscle mass, or nutritional status, or are non- or non-. According to the National Kidney Foundation, irrespective of diagnosis, the stage of the disease is based on the level of kidney function: Stage Description GFR(mL/min/1.73 m(2)) 1 Kidney damage with normal or decreased GFR 90 2 Kidney damage with mild decrease in GFR 60-89 3 Moderate decrease in GFR 30-59 4 Severe decrease in GFR 15-29 5 Kidney failure <15 (or dialysis) 94 Because ethnic data is not always readily available, this report includes an eGFR for both -Americans and non- Americans. The National Kidney Disease Education Program (NKDEP) does not endorse the use of the MDRD equation for patients that are not between the ages of 18 and 70, are , have extremes of body size, muscle mass, or nutritional status, or are non- or non-. According to the National Kidney Foundation, irrespective of diagnosis, the stage of the disease is based on the level of kidney function: Stage Description GFR(mL/min/1.73 m(2)) 1 Kidney damage with normal or decreased GFR 90 2 Kidney damage with mild decrease in GFR 60-89 3 Moderate decrease in GFR 30-59 4 Severe decrease in GFR 15-29 5 Kidney failure <15 (or dialysis) 95 REFERENCE VALUE 25-HYDROXY D TOTAL (D2+D3) Optimum levels in the healthy population are 20-50, patients with bone disease may benefit from higher levels within this range. Test Performed by: [place] [address] Sociology Teacher: Donnie Loredo M.D. 96 Normal Range 180 to 914 Indeterminate Range 145 to 180 Deficient Range <145 97 -- REFERENCE VALUE -- Cutoff: 500 98 -- REFERENCE VALUE -- Cutoff: 200 99 -- REFERENCE VALUE -- Cutoff: 200 100 -- REFERENCE VALUE -- Cutoff: 150 101 -- REFERENCE VALUE -- Cutoff: 300 102 -- REFERENCE VALUE -- Cutoff: 300 103 -- REFERENCE VALUE -- Cutoff: 300 104 This report is intended for use in clinical monitoring or management of patients. It is not intended for use in employment-related testing. 105 Test Performed by: [place] [address] Sociology Teacher: Andriy Pichardo III, M.D. 106 -- REFERENCE VALUE -- Cutoff: 300 107 -- REFERENCE VALUE -- Cutoff: 100 108 -- REFERENCE VALUE -- Cutoff: 100 109 -- REFERENCE VALUE -- Cutoff: 100 110 -- REFERENCE VALUE -- Cutoff: 100 111 -- REFERENCE VALUE -- Cutoff: 100 112 This report is intended for use in clinical monitoring and management of patients. It is not intended for use in employment-related testing. Test Performed by: [place] [address] Sociology Teacher: Andriy Pichardo III, M.D. 113 -- REFERENCE VALUE -- 25-HYDROXY D TOTAL (D2+D3) Optimum levels in the healthy population are 20-50, patients with bone disease may benefit from higher levels within this range. Test Performed by: [place] [address] Sociology Teacher: Andriy Pichardo III, M.D. 114 Therapeutic target for the treatment of diabetes Mellitus patients is <7% HBA1C, and in selective patients <6.0%.Please refer to [place] [employer] Diabetic care guidelines for further information. 115 -- REFERENCE VALUE -- 25-HYDROXY D TOTAL (D2+D3) Optimum levels in the healthy population are 20-50, patients with bone disease may benefit from higher levels within this range. Test Performed by: [place] [address] Sociology Teacher: Andriy Pichardo III, M.D. 116 Presumptive Positive 117 The urine specimen was tested at the listed cutoffs: Drug class test level (ng/ml) Amphetamines 300 Barbituates 200 Benzodiazepine metabolites 200 Cocaine metabolites 300 Cannabinoids 25 Opiates 200 Pcp 25 This is a screening procedure. Positive results are not confirmed. Specimen was received without chain of custody. Results should be used for medical purposes only. 118 Unable to report test result due to hemolysis. 119 Unable to report test result due to hemolysis. 120 Because ethnic data is not always readily available, this report includes an eGFR for both -Americans and non- Americans. The National Kidney Disease Education Program (NKDEP) does not endorse the use of the MDRD equation for patients that are not between the ages of 18 and 70, are , have extremes of body size, muscle mass, or nutritional status, or are non- or non-. According to the National Kidney Foundation, irrespective of diagnosis, the stage of the disease is based on the level of kidney function: Stage Description GFR(mL/min/1.73 m(2)) 1 Kidney damage with normal or decreased GFR 90 2 Kidney damage with mild decrease in GFR 60-89 3 Moderate decrease in GFR 30-59 4 Severe decrease in GFR 15-29 5 Kidney failure <15 (or dialysis) 121 Therapeutic concentration: <50 ug/mL Toxic concentration: >120 ug/mL 122 Therapeutic target for the treatment of diabetes Mellitus patients is <7% HBA1C, and in selective patients <6.0%.Please refer to [place] [employer] Diabetic care guidelines for further information. 123 Because ethnic data is not always readily available, this report includes an eGFR for both -Americans and non- Americans. The National Kidney Disease Education Program (NKDEP) does not endorse the use of the MDRD equation for patients that are not between the ages of 18 and 70, are , have extremes of body size, muscle mass, or nutritional status, or are non- or non-. According to the National Kidney Foundation, irrespective of diagnosis, the stage of the disease is based on the level of kidney function: Stage Description GFR(mL/min/1.73 m(2)) 1 Kidney damage with normal or decreased GFR 90 2 Kidney damage with mild decrease in GFR 60-89 3 Moderate decrease in GFR 30-59 4 Severe decrease in GFR 15-29 5 Kidney failure <15 (or dialysis) 124 HDL Interpretation: Undesirable: High Risk: Less than 40 mg/dL Desirable: Low Risk: Greater than 60 mg/dL 125 LDL Interpretation: Low Risk Optimal Level: LDL Less than 100 mg/dL Near or Above Optimal: LDL 100-129 mg/dL Borderline High Risk: LDL 130-159 mg/dL High Risk: LDL 160-189 mg/dL Very High Risk: LDL Greater than 189 mg/dL 126 Because ethnic data is not always readily available, this report includes an eGFR for both -Americans and non- Americans. The National Kidney Disease Education Program (NKDEP) does not endorse the use of the MDRD equation for patients that are not between the ages of 18 and 70, are , have extremes of body size, muscle mass, or nutritional status, or are non- or non-. According to the National Kidney Foundation, irrespective of diagnosis, the stage of the disease is based on the level of kidney function: Stage Description GFR(mL/min/1.73 m(2)) 1 Kidney damage with normal or decreased GFR 90 2 Kidney damage with mild decrease in GFR 60-89 3 Moderate decrease in GFR 30-59 4 Severe decrease in GFR 15-29 5 Kidney failure <15 (or dialysis) 127 Interpretation: 10-24 (mild to moderate deficiency) -- REFERENCE VALUE -- 25-HYDROXY D TOTAL (D2+D3) Optimum levels in the normal population are 25-80 Test Performed by: [place] [address] Sociology Teacher: Andriy Pichardo III, M.D. 128 FASTING 129 Serologic response to B. burgdorferi infection is not detected, but cannot rule out early infection during which low or undetectable antibody levels to B. burgdorferi may be present. If clinically indicated, a new serum specimen should be submitted in 7-14 days. Test Performed by: [place] [address] Sociology Teacher: Andriy Pichardo III, M.D. Procedures Date CPT Code Description Status Comment 07/01/2018 69054 Admin Of Inj Completed 05/07/2018 51125 Admin Of Inj Completed 03/03/2018 26550 Admin Of Inj Completed 12/31/2017 37368 Admin Of Inj Completed 11/08/2017 77510 Admin Of Inj Completed 09/09/2017 04063 Admin Of Inj Completed 07/17/2017 80048 Admin Of Inj Completed 04/08/2017 48125 ECHO Transthorasic Realtime 2D W Completed Doppler & Color Flow Hosp 03/07/2017 09297 Admin Of Inj Completed 01/09/2017 88921 Admin Of Inj Completed 11/14/2016 69104 Admin Of Inj Completed 10/23/2016 Diabetic Retinal Eye Exam Completed Aug 2016 per pt 09/10/2016 04312 Admin Of Inj Completed 07/10/2016 59020 Admin Of Inj Completed 05/16/2016 53821 Admin Of Inj Completed 03/13/2016 59403 Admin Of Inj Completed 01/25/2016 97261 Admin Of Inj Completed 12/12/2015 00088 Admin Of Inj Completed 10/28/2015 71307 Admin Of Inj Completed 08/15/2015 92744 Admin Of Inj Completed 05/09/2015 15576 Admin Of Inj Completed 03/29/2015 68229 Admin Of Inj Completed 01/27/2015 12798 Admin Of Inj Completed 12/07/2014 45900 Admin Of Inj Completed 08/11/2014 99422 Admin Of Inj Completed 07/08/2014 44688 Admin Of Inj Completed 04/29/2014 34202 Admin Of Inj Completed 04/02/2014 81156 Admin Of Inj Completed 03/04/2014 49839 Admin Of Inj Completed 09/09/2013 37938 Admin Of Inj Completed 08/07/2013 21970 Admin Of Inj Completed 07/07/2013 13020 Admin Of Inj Completed 05/28/2013 68948 Admin Of Inj Completed 04/29/2013 24871 Admin Of Inj Completed 03/30/2013 84507 Admin Of Inj Completed 02/27/2013 23780 Admin Of Inj Completed 01/28/2013 31867 Admin Of Inj Completed 12/29/2012 35335 Admin Of Inj Completed 12/01/2012 09111 Admin Of Inj Completed 10/29/2012 21846 Admin Of Inj Completed Encounters Type Date Location Provider CPT E/M Dx Office Visit 07/14/2018 [place] [address] R06.83 3:00p [facility] G47.33 E66.09 Z68.35 Office Visit 06/03/2018 2:00p [facility] Internal [place], [address] M25.562 Rob Patel M.D.,FACP I69.354 Office Visit 05/07/2018 3:00p [facility] Charlie Vuong, [address] I73.9 Of Gianfranco Stoddard Office Visit 04/07/2018 11:40a [facility] Internal Medicine [place], [address] I73.9 - Manisha Smith M.D.,FACP E11.9 G47.33 Office Visit 12/31/2017 3:00p [facility] Internal Medicine [place], [address] Z00.01 - Amanda Stoddard,FACP E11.9 E78.5 E66.01 D51.9 Office Visit 11/20/2017 9:00a [facility] Konstantin Beth, [address] I69.354 Services Of Gianfranco Stoddard F17.210 Z79.82 Office Visit 10/08/2017 7:40a [facility] Internal Medicine [place], [address]7575 I63.9 - Amanda Stoddard,FACP E11.9 I10 E78.2 Office Visit 09/23/2017 1:10p [facility] Internal Medicine Elisabethvaishnavi Moon, [place]MES [address] I63.9 - [address] E11.9 I69.354 Office Visit 07/02/2017 1:40p [facility] Internal Medicine [place], [address]361 I63.9 - Amanda Stoddard,FACP E11.9 E78.2 Office Visit 05/15/2017 2:40p [facility] Internal Medicine Dillon Friedman, 93395 I63.9 - Mojgan Stoddard E11.9 E78.2 Office Visit 04/10/2017 10:56a [facility], Karrie Mcmillan, 55275 I63.9 Hospitalists Richi E78.5 E11.9 Office Visit 04/09/2017 10:59a [facility] [address] I63.9 E11.9 F14.10 Office Visit 04/09/2017 10:56a [facility],pc Karrie Mcmillan, 20025 I63.9 Hospitalists Richi E78.5 E11.9 Office Visit 04/08/2017 10:02a [facility] [address] I63.9 E11.9 F14.10 Office Visit 04/08/2017 10:32a [facility],pc Karrie Mcmillan, 87079 I63.9 Hospitalists MBetty E78.5 E11.9 Office Visit 04/07/2017 10:32a [facility],pc Karrie Mcmillan, 13148 I63.9 Hospitalists Richi E78.5 E11.9 Office Visit 03/19/2017 4:00p [facility] Internal Medicine Dillon Friedman, 85126 E11.9 - Mojgan Stoddard E78.2 J06.9 Office Visit 02/01/2017 10:40a [facility] Internal Medicine - Dillon Friedman, 78252 R21 Mojgan Stoddard E11.9 E78.2 Office Visit 10/23/2016 10:40a [facility] Internal Medicine Dillon Friedman, 50948 E11.9 - Mojgan Stoddard E55.9 R05 E78.2 Office Visit 04/17/2016 10:40a [facility] Internal Medicine Dillon Friedman, 83718 Z00.00 - Amanda Stoddard E11.9 E78.2 E66.09 E55.9 F17.210 G47.30 R05 R10.815 Office Visit 10/28/2015 1:40p [facility] [place] [address] E11.9 Wright J30.89 E53.8 Office Visit 07/12/2015 1:50p [facility] Internal Medicine Yenni Temple M.D. 31551 E11.9 - Amanda Z72.820 V04.81 Z23 R53.83 F17.210 Office Visit 06/20/2015 2:20p [facility] [place] [address] 780.79 - Wright Office Visit 02/24/2015 2:10p [facility] Internal Medicine Yenni Temple, 790[address] 250.00 - Amanda Stoddard 266.2 305.1 272.2 574.70 571.8 Office Visit 01/27/2015 2:10p [facility] Internal Medicine Yenni Temple M.D. 94388 266.2 - Wright 278.00 789.9 682.9 V73.89 305.1 796.2 682.3 Office Visit 12/07/2014 3:00p [facility] [place] [address] 266.2 Wright 780.79 Office Visit 09/03/2014 1:40p [facility] Internal Medicine Dandre Varma M.D. 16591 787.91 - Wright 789.01 Office Visit 05/04/2014 11:20a [facility] Internal Medicine Minnie Mcleod M.D. 70813 847.2 - Wright Office Visit 04/29/2014 9:40a [facility] Internal Medicine Minnie Mcleod M.D. 83268 296.80 - Wright 266.2 268.9 607.84 790.6 Office Visit 03/04/2014 12:10p [facility] Internal Medicine Yenni Temple M.D. 05062 724.2 - Wright 790.6 268.9 298.9 305.62 266.2 Office Visit 12/24/2013 3:40p [facility] Internal Medicine Minnie Mcleod M.D. 07244 847.1 - Wright 281.1 847.2 Office Visit 08/31/2013 1:40p [facility] Internal Medicine Dillon Friedman, 09877 465.9 - Amanda Stoddard 525.9 Office Visit 07/07/2013 1:10p [facility] Internal Medicine Yenni Temple M.D. 14108 305.1 - Wright 780.79 281.1 Office Visit 06/10/2013 11:50a [facility] Internal Medicine Yenni Temple M.D. 99045 724.2 - Wright V45.86 268.9 Office Visit 06/03/2013 10:50a [facility] Internal Medicine Yenni Temple 60099 535.50 - Amanda Stoddard 268.9 266.2 780.79 780.52 V45.86 V77.91 Office Visit 10/29/2012 11:10a [facility] Internal Medicine Yenni Temple M.D. 81643 356.8 - Wright V45.86 266.2 842.19 574.40 Plan of Care Future Appointment(s):01/06/2019 10:20 am - M[place] Ash M.D.,FACP at [facility]09/09/2018 4:00 pm - M[place]za Ash M.D.,FACP at [facility]07/23/2018 - Mendoza Ash M.D., FACPI69.354 Hemiplga following cerebral infrc affecting left nondom sideComments :Continue to follow up with physical therapy as planned.E11.9 Type 2 diabetes mellitus without complicationsComments:You are meeting goal for blood sugar control. Continue current medications as prescribed. Advised low carbohydrate diet and weight loss. Complete urine test as discussed. A yearly nutrition visit isavailable to all diabetics. You are on a moderate-potency statin to prevent new or recurrent heart disease, which is common in diabetics.Goals:Goal Hemoglobin A1c is less than 7.0% in ages 18-74 Goal Hemoglobin A1c is between 7.0% and 8.0% in age over 75 Goal Blood pressure is less than 130/85. Cholesterol should be lowered by a high or moderate-dose statin.
--- NOTE | 2018-08-20 16:55 | ED ---
Lower Extremity - HPI Summary HPI Summary: This patient is a 47 year old M presenting to ED with a chief complaint of L calf swelling, stiffness, with severe pain since 1200 earlier today s/p waking up from a 2 hour nap. Upon arrival, the patient was diaphoretics, secondary to the pain from the calf. The patient rates the pain 5/10 in severity. Symptoms aggravated by nothing. Symptoms alleviated by nothing. Patient reports SOB. The patient takes Metformin, ASA, hydrocodone, atorvastatin. PMHx of blood clot and stroke (April 05, 2017). - History of Current Complaint Chief Complaint: EDNeurologicalDeficit Stated Complaint: LEG PAIN Time Seen by Provider: 08/20/18 16:39 Hx Obtained From: Patient Onset of Pain: Immediate Onset/Duration: Hours Severity Initially: Moderate Severity Currently: Moderate Pain Intensity: 5 Pain Scale Used: 0-10 Numeric Location: Is Discrete @ - L calf Character Of Pain: Stiffness Aggravating Factor(s): Nothing Alleviating Factor(s): Nothing - Allergies/Home Medications Allergies/Adverse Reactions: Allergies Allergy/AdvReac Type Severity Reaction Status Date / Time No Known Allergies Allergy Verified 08/20/18 13:36 PMH/Surg Hx/FS Hx/Imm Hx Endocrine/Hematology History: Reports: Hx Diabetes - Type II Denies: Hx Systemic Lupus Erythematosus, Hx Thyroid Disease Cardiovascular History: Denies: Hx Congestive Heart Failure, Hx Hypertension, Hx Pacemaker/ICD Respiratory History: Reports: Hx Sleep Apnea Denies: Hx Asthma, Hx Chronic Obstructive Pulmonary Disease (COPD) GI History: Reports: Hx Gall Bladder Disease - stones, Other GI Disorders - GASTRIC BYPASS Denies: Hx Ulcer History: Reports: Other Problems/Disorders - Nephrolithosis Denies: Hx Dialysis, Hx Renal Disease Musculoskeletal History: Denies: Hx Rheumatoid Arthritis, Hx Scoliosis Sensory History: 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 Denies: Hx Contacts or Glasses, Hx Hearing Aid Opthamlomology History: 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 Denies: Hx Contacts or Glasses Neurological History: Reports: Hx CVA - april 07, 2017 Denies: Hx Dementia, Hx Headaches, Hx Seizures, Other Neuro Impairments/ Disorders Psychiatric History: Reports: Hx of Violent Episodes Against Others, Other Psychiatric Issues/Disorders - alcohol/cocaine dependence, psychiatric hospitalization, hallucination Denies: Hx Panic Disorder - Cancer History Hx Chemotherapy: No - Surgical History Surgery Procedure, Year, and Place: GASTRIC BYPASS/APPY/UMBILICAL HERNIA X5/ TONSILS/NASAL SEPTUM, [place] Infectious Disease History: No Infectious Disease History: Denies: Hx Clostridium Difficile, Hx Hepatitis, Hx Human Immunodeficiency Virus (HIV), Hx of Known/Suspected MRSA, Hx Shingles, Hx Tuberculosis, Hx Known/ Suspected VRE, Hx Known/Suspected VRSA, History Other Infectious Disease, Traveled Outside the [place] in Last 30 Days - Family History Known Family History: Positive: Other - Alcohol abuse (brother, paternal grandmother) - Social History Alcohol Use: None Hx Substance Use: Yes - Hx of cocaine dependence Substance Use Type: Reports: None Hx Tobacco Use: Yes Smoking Status (MU): Heavy Every Day Tobacco Smoker Type: Cigarettes Amount Used/How Often: 1 ppd Length of Time of Smoking/Using Tobacco: 35 Have You Smoked in the Last Year: Yes Review of Systems Positive: Skin Diaphoresis - secondary to the pain from the calf Positive: Shortness Of Breath Positive: Other - L calf swelling, stiffness, with severe pain All Other Systems Reviewed And Are Negative: Yes Physical Exam - Summary Physical Exam Summary: GENERAL: Patient is a well-developed and nourished M who is lying comfortable in the stretcher. Patient is not in any acute respiratory distress. HEAD AND FACE: Normocephalic EYES: PERRLA, EOMI x 2. EARS: Hearing grossly intact. MOUTH: Oropharynx within normal limits. NECK: Supple, trachea is midline, no adenopathy, no JVD, no carotid bruit. CHEST: Symmetric, no tenderness at palpation LUNGS: Diffuse wheezing and rhonchi. CVS: Regular rate and rhythm, S1 and S2 present, no murmurs or gallops appreciated. ABDOMEN: Soft, non-tender. Bowel sounds are normal. No abdominal abnormal pulsations. EXTREMITIES: Full ROM in all major joints, no edema, no cyanosis or clubbing. Swollen L calf with tenderness to palpation, compartment is soft, neurovascular intact. NEURO: Alert and oriented x 3. No acute neurological deficits. Speech is normal and follows commands. SKIN: Dry and warm Triage Information Reviewed: Yes Vital Signs On Initial Exam: Initial Vitals Temp Pulse Resp BP Pulse Ox 96.9 F 93 16 176/117 96 08/20/18 13:30 08/20/18 13:30 08/20/18 13:30 08/20/18 13:30 08/20/18 13:30 Vital Signs Reviewed: Yes Diagnostics - Vital Signs Vital Signs Temp Pulse Resp BP Pulse Ox 08/20/18 13:30 96.9 F 93 16 176/117 96 - Laboratory Result Diagrams: 08/20/18 17:40 08/20/18 17:40 Lab Statement: Any lab studies that have been ordered have been reviewed, and results considered in the medical decision making process. - Radiology CXR Radiology Interpretation Completed By: ED Physician - No acute processes. Pending radiologist official interpretation. - Ultrasound No standard instances Ultrasound Interpretation Completed By: Radiologist - Venous Doppler Study reveals no acute findings. No evidence of deep vein thrombosis in the left leg. - EKG 1513 Cardiac Rate: NL - 87 BPM EKG Rhythm: Sinus Rhythm EKG Comparison: No Significant Change - from EKG done on 09/07/2017 Summary of EKG Findings: Q wave in the inferior lead Lower Extremity Course/Dx - Course Assessment/Plan: This patient is a 47 year old M presenting to ED with a chief complaint of L calf swelling, stiffness, with severe pain since 1200 earlier today s/p waking up from a 2 hour nap. EKG done at 1513 reveals NSR at 87 BPM, Q wave in the inferior lead, and unchanged from 09/07/2017. In the ED course, the patient was given duoneb. CXR reveals no acute processes. Venous Doppler Study reveals no acute findings. No evidence of deep vein thrombosis in the left leg. This patient will be discharged. I discussed results with patient and he reports feeling better. He is hemodynamically stable and safe for discharge. Strict return precautions given and he will otherwise follow up with his PCP. - Diagnoses Provider Diagnoses: Calf pain Discharge - Sign-Out/Discharge Documenting (check all that apply): Patient Departure - discharge - Discharge Plan Condition: Stable Disposition: HOME Patient Education Materials: Leg Pain (ED) Referrals: Mendoza Ash MD [Primary Care Provider] - (Follow up with your primary care physician in 1-3 days.) Additional Instructions: Follow up with your primary care physician in 1-3 days. RETURN TO THE EMERGENCY DEPARTMENT FOR CHANGING OR WORSENING SYMPTOMS. - Billing Disposition and Condition Condition: STABLE Disposition: Home - Attestation Statements Document Initiated by Scribe: Yes Documenting Scribe: Julius Jin Provider For Whom Saritaibe is Documenting (Include Credential): Candy Ibrahim MD Scribe Attestation: I, Julius Jin, scribed for Candy Ibrahim MD on 08/22/18 at 0447. Scribe Documentation Reviewed: Yes Provider Attestation: The documentation as recorded by the Julius werner accurately reflects the service I personally performed and the decisions made by me, Candy Ibrahim MD
[2018-08-20 17:51] LABS: ABS Basophils 0.1 10^3/ul (0-0.2); ABS Eosinophils 0.2 10^3/ul (0-0.6); ABS Lymphocytes 2.1 10^3/ul (1.0-4.8); ABS Monocytes 0.4 10^3/ul (0-0.8); ABS Neutrophils 5.7 10^3/ul (1.5-7.7); ABS Nucleated RBC 0 10^3/ul; Hematocrit 48 % (42-52); Hemoglobin 16.4 g/dl (14.0-18.0); Lymphocyte % 25.3 % (25-47); Mean Corpuscular HGB Conc 34 g/dl (31-36); Mean Corpuscular Hemoglobin 30 pg (27-31); Mean Corpuscular Volume 87 fL (80-94); Mean Platelet Volume 7.6 um3 (7.4-10.4); Nucleated Red Blood Cells % 0.1; Platelet Count 263 10^3/ul (150-450); Red Blood Count 5.46 10^6/ul (4.00-5.40); Red Cell Distribution Width 14 % (10.5-15); White Blood Count 8.5 10^3/ul (3.5-10.8)
[2018-08-20 18:09] LABS: EGFR Non-African American 85.3 (>60)
--- NOTE | 2018-08-20 18:26 | RAD ---
EXAM: US Left Duplex Lower Extremity Veins, Limited EXAM DATE/TIME: 08/20/2018 6:01 PM CLINICAL HISTORY: 47 years old, male; Pain; Leg, lower; Left; Additional info: Swelling and pain TECHNIQUE: Real-time Duplex ultrasound of the Left Lower Extremity with 2-D colmenares scale, color Doppler flow and spectral waveform analysis. Limited exam focused on the left lower extremity veins. COMPARISON: No relevant prior studies available. FINDINGS: Left deep veins: Unremarkable. The common femoral, femoral and popliteal veins are patent without thrombus. Normal compressibility, augmentation response and Doppler waveforms. Left superficial veins: Unremarkable. Saphenofemoral junction is patent without thrombus. Soft tissues: Unremarkable. IMPRESSION: No acute findings. No evidence of deep vein thrombosis in the left leg. To contact [facility] with a general question: [facility] - [phone] For direct physician to physician contact: Physician Hotline - [phone] [facility] ([facility] Facility ID #[id number])
[2018-08-20 18:53] VITALS: BP 159/74
--- NOTE | 2018-08-21 07:51 | RAD ---
HISTORY: sob COMPARISONS: September 07, 2017 VIEWS: 4: Frontal dual-energy and lateral views of the chest. FINDINGS: CARDIOMEDIASTINAL SILHOUETTE: The cardiomediastinal silhouette is normal. MERY: The mery are normal. PLEURA: The costophrenic angles are sharp. No pleural abnormalities are noted. LUNG PARENCHYMA: There is hyperinflation with flattening of the diaphragm and expansion of the AP diameter of the chest. ABDOMEN: The upper abdomen is clear. There is no subphrenic gas. BONES AND SOFT TISSUES: No bone or soft tissue abnormalities are noted. OTHER: None. IMPRESSION: NO ACTIVE CARDIOPULMONARY DISEASE. R0
== END | disposition home or self-care (01) ==
LOC: ED 13:10
DX: M79.605 Pain in left leg (principal); F17.210 Nicotine dependence, cigarettes, uncomplicated; Z86.73 Personal history of transient ischemic attack (TIA), and cerebral infarction without residual deficits
CPT/HCPCS: 36415; 71046; 80053; 82607; 83605; 83735; 83880; 84484; 85025; 85610; 85730; 93005; 99282; A9270-GY

== ENCOUNTER 2019-09-23 02:47 | Emergency (ER) | payer MEDICARE ==
[2019-09-23] MEDS ORDERED: Cocaine 4% TOPICAL* 4 ML/BOTTLE LEFT NARE ONE (03:33)
--- NOTE | 2019-09-23 03:36 | ED ---
Throat Pain/Nasal Congestion - HPI Summary HPI Summary: Patient is a 48 y/o M presenting to [facility] with complaints of epistaxis of left nare that onset this evening. Bleeding onset around 0115 09/23/19 and awoke the patient from sleep. On triage, severity is rated 7/10, noting is noted to aggravate/alleviate Sx. PMHx of diabetes, gallbladder disease, CVA reported. PSHx of gastric bypass noted. He is a current smoker. Home medications and allergies are reviewed. - History of Current Complaint Chief Complaint: EDEpistaxis Time Seen by Provider: 09/23/19 03:31 Hx Obtained From: Patient Onset/Duration: Lasting Hours, Still Present Severity: Severe Associated Signs And Symptoms: Positive: Nasal Discharge Cough: None - Allergies/Home Medications Allergies/Adverse Reactions: Allergies Allergy/AdvReac Type Severity Reaction Status Date / Time No Known Allergies Allergy Verified 09/23/19 02:48 PMH/Surg Hx/FS Hx/Imm Hx Endocrine/Hematology History: Reports: Hx Diabetes - Type II Denies: Hx Systemic Lupus Erythematosus, Hx Thyroid Disease Cardiovascular History: Denies: Hx Congestive Heart Failure, Hx Hypertension, Hx Pacemaker/ICD Respiratory History: Reports: Hx Sleep Apnea Denies: Hx Asthma, Hx Chronic Obstructive Pulmonary Disease (COPD) GI History: Reports: Hx Gall Bladder Disease - stones, Other GI Disorders - GASTRIC BYPASS Denies: Hx Ulcer History: Reports: Other Problems/Disorders - Nephrolithosis Denies: Hx Dialysis, Hx Renal Disease Musculoskeletal History: Denies: Hx Rheumatoid Arthritis, Hx Scoliosis Sensory History: 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 Denies: Hx Contacts or Glasses, Hx Hearing Aid Opthamlomology History: 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 Denies: Hx Contacts or Glasses Neurological History: Reports: Hx CVA - april 07, 2017 Denies: Hx Dementia, Hx Headaches, Hx Seizures, Other Neuro Impairments/ Disorders Psychiatric History: Reports: Hx of Violent Episodes Against Others, Other Psychiatric Issues/Disorders - alcohol/cocaine dependence, psychiatric hospitalization, hallucination Denies: Hx Panic Disorder - Cancer History Hx Chemotherapy: No - Surgical History Surgery Procedure, Year, and Place: GASTRIC BYPASS/APPY/UMBILICAL HERNIA X5/ TONSILS/NASAL SEPTUM, [place] Infectious Disease History: No Infectious Disease History: Denies: Hx Clostridium Difficile, Hx Hepatitis, Hx Human Immunodeficiency Virus (HIV), Hx of Known/Suspected MRSA, Hx Shingles, Hx Tuberculosis, Hx Known/ Suspected VRE, Hx Known/Suspected VRSA, History Other Infectious Disease, Traveled Outside the [place] in Last 30 Days - Family History Known Family History: Positive: Other - Alcohol abuse (brother, paternal grandmother) - Social History Alcohol Use: None Hx Substance Use: Yes - Hx of cocaine dependence Substance Use Type: Reports: None Hx Tobacco Use: Yes Smoking Status (MU): Heavy Every Day Tobacco Smoker Type: Cigarettes Amount Used/How Often: 1 ppd Length of Time of Smoking/Using Tobacco: 35 Have You Smoked in the Last Year: Yes Review of Systems Negative: Fever - vitals show temp 97.4 F Positive: Epistaxis All Other Systems Reviewed And Are Negative: Yes Physical Exam - Summary Physical Exam Summary: Appearance: Well-appearing, Well-nourished, lying in bed comfortable Skin: Warm, dry, no obvious rash Eyes: sclera anicteric, no conjunctival pallor ENT: mucous membranes moist, no source of bleeding noted for left nare Neck: deferred Respiratory: No signs of respiratory distress Cardiovascular: Appears well perfused, pulses are nml Abdomen: deferred Musculoskeletal: Moving all 4 extremities without obvious discomfort Neurological: Awake and alert, mentation is normal, speech is fluent and appropriate Psychiatric: affect is normal, does not appear anxious or depressed Triage Information Reviewed: Yes Vital Signs On Initial Exam: Initial Vitals Temp Pulse Resp BP Pulse Ox 97.4 F 128 19 183/134 94 09/23/19 02:47 09/23/19 02:47 09/23/19 02:47 09/23/19 02:47 09/23/19 02:47 Vital Signs Reviewed: Yes Procedures - Sedation Patient Received Moderate/Deep Sedation with Procedure: No Diagnostics - Vital Signs Vital Signs Temp Pulse Resp BP Pulse Ox 09/23/19 02:47 97.4 F 128 19 183/134 94 - Laboratory Lab Statement: Any lab studies that have been ordered have been reviewed, and results considered in the medical decision making process. EENT Course/Dx - Course Course Of Treatment: Patient is a 48 y/o M presenting to [facility] with complaints of epistaxis of left nare that onset this evening. Bleeding onset around 0115 and awoke the patient from sleep. No source of bleeding noted for left nare noted. Liquid cocaine to left nare administered, bleeding continued. Rhino- rocket placed to left nare, bleeding was then controlled but packing became dislodged when patient sneezed. I then replaced it with merocel trimmed to size , and that seemed better tolerated. Patient was discharged to home and will follow up with ENT doctor. - Diagnoses Provider Diagnoses: Epistaxis Discharge ED - Sign-Out/Discharge Documenting (check all that apply): Patient Departure - Discharge Plan Condition: Good Disposition: HOME Patient Education Materials: Nosebleed (ED) Referrals: Sanford Garcia MD [Medical Doctor] - Additional Instructions: Call Dr. Garcia later this am when the office opens, he should see you towards the end of the week to remove the packing and examine you more carefully. - Billing Disposition and Condition Condition: GOOD Disposition: Home - Attestation Statements Document Initiated by Blaine: Yes Documenting Scribe: RHEA LA Provider For Whom Blaine is Documenting (Include Credential): NOEMY STAFFORD MD Scribe Attestation: REHA Cartagena scribed for NOEMY STAFFORD MD on 09/24/19 at 0546. Scribe Documentation Reviewed: Yes Provider Attestation: The documentation as recorded by the RHEA werner accurately reflects the service I personally performed and the decisions made by me, NOEMY STAFFORD MD Status of Scribe Document: Viewed
[2019-09-23 04:52] VITALS: BP 121/92
== END 2019-09-23 04:51 | disposition home or self-care (01) ==
LOC: ED 02:47
DX: R04.0 Epistaxis (principal); E11.9 Type 2 diabetes mellitus without complications; F17.210 Nicotine dependence, cigarettes, uncomplicated
CPT/HCPCS: 30905; 99282; C9046